=== PATIENT | female | born 1945 | race Caucasian/White ===

== ENCOUNTER 2017-12-10 15:59 | Inpatient (IN) ==
[2017-12-10 17:26] LABS: Basophils # 0.1 K/mcL (0.0-0.2); Basophils % 0.4 %; Eosinophils # 0.1 K/mcL (0.0-0.6); Hematocrit 42.5 % (35.3-44.9); Hemoglobin 13.9 g/dL (11.5-15.4); Immature Granulocytes % 0.4 % (0-4); Lymphocytes # 5.4 K/mcL (0.6-4.6); Lymphocytes % 39.8 %; Mean Corpuscular HGB Conc 32.7 g/dL (31.6-35.5); Mean Corpuscular Hemoglobin 31.4 pg (28.0-33.3); Mean Corpuscular Volume 96.2 fL (83.0-100.0); Mean Platelet Volume 11.3 fL (9.4-12.4); Monocytes # 1.4 K/mcL (0.0-1.3); Monocytes % 10.4 %; Neutrophils # 6.5 K/mcL (1.6-8.9); Nucleated Red Blood Cells 0.1 /100 WBC (0); Platelet Count 157 K/mcL (140-400); Red Blood Count 4.42 M/mcL (3.82-4.97); Red Cell Distribution Width 15.3 % (11.5-14.5)
[2017-12-10 18:11] LABS: Alanine Aminotransferase 218 Units/L (7-52); Albumin 2.9 g/dL (3.5-5.7); Albumin/Globulin Ratio 0.8 (1.1-2.2); Alkaline Phosphatase 826 Units/L (34-104); Amylase 43 Units/L (29-103); Aspartate Amino Transferase 358 Units/L (13-39); BUN/Creatinine Ratio 16 (6-26); Bilirubin,Direct 5.1 mg/dL (0.0-0.2); Bilirubin,Indirect 3.2 mg/dL (0.0-1.2); Bilirubin,Total 8.3 mg/dL (0.3-1.0); Blood Urea Nitrogen 17 mg/dL (8-23); Calcium 9.1 mg/dL (8.6-10.3); Carbon Dioxide 23 mEq/L (23-29); Chloride 101 mEq/L (98-107); Globulin 3.7 g/dL (2.4-3.5); Glucose 163 mg/dL (70-105); Lipase 24 Units/L (11-82); Osmolality,Calculated 279 (280-300); Potassium 4.1 mEq/L (3.5-5.1); Sodium 132 mEq/L (136-145); Total Protein 6.6 g/dL (6.4-8.9); eGFR For African Americans > 60 (> 60); eGFR For Non-African Americans 52 (> 60)
--- NOTE | 2017-12-10 20:22 | Emergency Department Note ---
Disposition Clinical Impression: Elevated LFTs, RUQ pain, Abnormal ultrasound, Cholecystitis Disposition: Admitted As Inpatient Condition: Good Time of Disposition: 23:07 Abdominal Pain HPI - General Chief Complaint: ED Abdominal Pain Stated Complaint: Gallbladder issues Time Seen by Provider: 12/10/17 20:03 Source: patient Mode of arrival: ambulatory Limitations: no limitations Nursing Notes Reviewed: Yes Vital Signs Reviewed: Yes - History of Present Illness HPI Narrative: Patient is a 72-year-old female with past medical history of hypertension, hyperlipidemia, diabetes. She presents today due to right upper quadrant and epigastric pain, jaundice, elevated LFTs and bilirubin levels. She also admits to white stools, dark urine. She states that around 2 years ago, she was diagnosed with gallstones. She says that she has had mildly elevated LFTs in the past but no real pain or issues pass that. Over the past week, she has been having right upper quadrant pain, mainly associated with eating, associated nausea. Denies any vomiting, fevers, chest pain, shortness of breath. She was seen by her primary care physician on 12/08/17 and had basic blood work drawn. She was called and told that she had elevated LFTs and bilirubin and come to the ER. She has also noticed that she has had jaundiced skin and scleral icterus. Pain Scale: 8 - Related Data Home Medications Medication Instructions Recorded Confirmed Aspirin Enteric Coated [Aspirin EC] 81 mg PO DAILY 12/10/17 12/10/17 Atorvastatin [Lipitor] 10 mg PO HS 12/10/17 12/10/17 Calcium Carbonate [Calcium] 600 mg PO DAILY 12/10/17 12/10/17 Insulin NPH Hum/Reg Insulin Hm 26 unit SQ QPM 12/10/17 12/10/17 [Novolin 70-30 100 Unit/ml Vial] Insulin NPH Hum/Reg Insulin Hm 46 unit SQ QAM 12/10/17 12/10/17 [Novolin 70-30 100 Unit/ml Vial] Lisinopril [Zestril] 10 mg PO DAILY 12/10/17 12/10/17 Vit A/C/E AC/Znox/Cupric Oxide 1 each PO DAILY 12/10/17 12/10/17 [Eye Vitamin-Minerals Tablet] glipiZIDE [Glucotrol] 5 mg PO BID 12/10/17 12/10/17 Allergies Allergy/AdvReac Type Severity Reaction Status Date / Time No Known Allergies Allergy Verified 12/10/17 16:30 All systems ED: reviewed and negative except as stated. Constitutional: Denies: fever Cardiovascular: Denies: chest pain, palpitations Respiratory: Denies: cough, dyspnea, wheezes Gastrointestinal: Reports: abdominal pain, nausea, other. Denies: vomiting, diarrhea, constipation, hematemesis, melena, hematochezia Genitourinary: Reports: other. Denies: urgency, dysuria, frequency, hematuria, discharge, abnormal menses Abdominal Pain PMH - Past Medical History Medical history: Reports: diabetes, hyperlipidemia, hypertension Female Surgical History: Reports: orthopedic, other Psychiatric history: Reports: no psych history - Social History Smoking status: Former smoker Alcohol use: Reports: none Drug use: Reports: none Physical Exam - General Limitations: no limitations General appearance: alert - Head Head exam: atraumatic, normocephalic, normal inspection - Eye Eye exam: Present: PERRL, EOMI, scleral icterus - ENT ENT exam: normal exam, normal oropharynx, mucous membranes moist - Neck Neck exam: Present: normal inspection, full ROM, trachea midline - Chest Chest inspection: Present: normal inspection, symmetric chest wall rise - Respiratory Respiratory exam: Present: normal lung sounds bilaterally - Cardiovascular Cardiovascular exam: Present: regular rate, normal rhythm, normal heart sounds - Abdominal Exam Abdominal exam: Present: soft, tenderness (RUQ tenderness - moderate). Absent: distention, guarding, rebound, rigidity - Extremities Exam Extremities exam: Present: normal inspection, full ROM. Absent: tenderness, pedal edema - Neurological Exam Neurological exam: Present: alert, oriented X3 - Psychiatric Psychiatric exam: Present: normal affect, normal mood - Skin Skin exam: Present: warm, dry, intact, other (jaundice) Course Course Narrative: Vitals within normal limits. Patient has refused any pain medication at this time. Refused any nausea medication. Physical exam shows scleral icterus, jaundice, right upper quadrant and epigastric tenderness. Basic labs were already drawn and showed elevated LFTs, elevated total, direct, and direct bilirubin. We will obtain ultrasound of right upper quadrant. Current concern for cholecystitis versus choledocolithiasis. 22:01 gallbladder ultrasound showed gallstones versus polyp and possible cholecystitis, recommended HIDA and/or MRCP. Patient requested Dr. nieto as surgeon. I spoke with him on the telephone, he recommended admission to medicine service, medical management and symptomatic control, possible MRCP in the morning. Consult has been placed. We will admit the patient to medicine for further care. Continues to decline pain or nausea medication at this time. 23:06 Dr. Blank accepts and asked for MRCP to be ordered for morning, this has been ordered and hospitalist service will follow up on results. Gallbladder Ultrasound 12/10/17 20:19 IMPRESSION: Gallstone versus gallbladder polyp. Possible cholecystitis. Follow-up HIDA scan and/or MRCP may be helpful for further characterization. D/ / Mike Peralta MD / Mike Peralta MD Interpreting Provider: Mike Peralta MD Vital Signs Temperature 98.1 F 12/10/17 16:30 Pulse Rate 99 12/10/17 16:30 Respiratory Rate 14 12/10/17 16:30 Blood Pressure 129/73 12/10/17 16:30 O2 Sat by Pulse Oximetry 99 12/10/17 16:30 Temperature 98.1 F 12/10/17 16:30 Pulse Rate 78 12/10/17 20:30 Respiratory Rate 16 12/10/17 23:27 Blood Pressure 132/73 12/10/17 23:27 O2 Sat by Pulse Oximetry 98 12/10/17 20:30 Oxygen Delivery Oxygen Delivery Room Air Abdominal Pain - MDM Narrative Medical decision making narrative: Vitals within normal limits. Patient has refused any pain medication at this time. Refused any nausea medication. Physical exam shows scleral icterus, jaundice, right upper quadrant and epigastric tenderness. Basic labs were already drawn and showed elevated LFTs, elevated total, direct, and direct bilirubin. We will obtain ultrasound of right upper quadrant. Current concern for cholecystitis versus choledocolithiasis. 22:01 gallbladder ultrasound showed gallstones versus polyp and possible cholecystitis, recommended HIDA and/or MRCP. Patient requested Dr. nieto as surgeon. I spoke with him on the telephone, he recommended admission to medicine service, medical management and symptomatic control, possible MRCP in the morning. Consult has been placed. We will admit the patient to medicine for further care. Continues to decline pain or nausea medication at this time. 22:01 gallbladder ultrasound showed gallstones versus polyp and possible cholecystitis, recommended HIDA and/or MRCP. Patient requested Dr. ineto as surgeon. I spoke with him on the telephone, he recommended admission to medicine service, medical management and symptomatic control, possible MRCP in the morning. Consult has been placed. We will admit the patient to medicine for further care. Continues to decline pain or nausea medication at this time. 23:06 Dr. Blank accepts and asked for MRCP to be ordered for morning, this has been ordered and hospitalist service will follow up on results. - Medical Records Medical records reviewed: Yes I reviewed the patient's medical records. - Lab Data Lab results reviewed: Yes I reviewed the patient's lab results. Result diagrams: 12/10/17 17:10 12/10/17 17:10 Lab Results 12/10/17 12/10/17 12/10/17 Range/Units 17:10 17:10 19:52 WBC 13.5 H (4.3-11.1) K/mcL RBC 4.42 (3.82-4.97) M/mcL Hgb 13.9 (11.5-15.4) g/dL Hct 42.5 (35.3-44.9) % MCV 96.2 (83.0-100.0) fL MCH 31.4 (28.0-33.3) pg MCHC 32.7 (31.6-35.5) g/dL RDW 15.3 H (11.5-14.5) % Plt Count 157 (140-400) K/mcL MPV 11.3 (9.4-12.4) fL Immature Gran % 0.4 (0-4) % Seg Neutrophils % 48.0 % Lymphocytes % 39.8 % Monocytes % 10.4 % Eosinophils % 1.0 % Basophils % 0.4 % Neutrophils # 6.5 (1.6-8.9) K/mcL Lymphocytes # 5.4 H (0.6-4.6) K/mcL Monocytes # 1.4 H (0.0-1.3) K/mcL Eosinophils # 0.1 (0.0-0.6) K/mcL Basophils # 0.1 (0.0-0.2) K/mcL Nucleated RBCs/100 WBC 0.1 H (0) /100 WBC PT (9.4-12.1) Seconds INR APTT (26.0-36.0) Seconds Sodium 132 L (136-145) mEq/L Potassium 4.1 (3.5-5.1) mEq/L Chloride 101 (98-107) mEq/L Carbon Dioxide 23 (23-29) mEq/L BUN 17 (8-23) mg/dL Creatinine 1.05 (0.60-1.20) mg/dL Est GFR ( Amer) > 60 (> 60) Est GFR (Non-Af Amer) 52 L (> 60) BUN/Creatinine Ratio 16 (6-26) Glucose 163 H (70-105) mg/dL Calculated Osmolality 279 L (280-300) Calcium 9.1 (8.6-10.3) mg/dL Total Bilirubin 8.3 H (0.3-1.0) mg/dL Direct Bilirubin 5.1 H (0.0-0.2) mg/dL Indirect Bilirubin 3.2 H (0.0-1.2) mg/dL AST 358 H (13-39) Units/L ALT 218 H (7-52) Units/L Alkaline Phosphatase 826 H (34-104) Units/L Serum Total Protein 6.6 (6.4-8.9) g/dL Albumin 2.9 L (3.5-5.7) g/dL Globulin 3.7 H (2.4-3.5) g/dL Albumin/Globulin Ratio 0.8 L (1.1-2.2) Amylase 43 (29-103) Units/L Lipase 24 (11-82) Units/L Ur Specimen Adequacy See below A Urine Color [place] A (Yellow) Urine Clarity Clear (Clear) Urine Microscopic RBC 5-15 H (0-3) per hpf Urine Microscopic WBC 15-30 H (0-3) per hpf Ur Squamous Epith Cells Many H (None-Few) per lpf Urine Bacteria Moderate H (None-Few) per hpf Hyaline Casts Moderate H (None-Few) per lpf Urine Yeast Moderate H (None Seen) per hpf Ur Culture Indicated? NO (NO) 12/10/17 Range/Units 22:17 WBC (4.3-11.1) K/mcL RBC (3.82-4.97) M/mcL Hgb (11.5-15.4) g/dL Hct (35.3-44.9) % MCV (83.0-100.0) fL MCH (28.0-33.3) pg MCHC (31.6-35.5) g/dL RDW (11.5-14.5) % Plt Count (140-400) K/mcL MPV (9.4-12.4) fL Immature Gran % (0-4) % Seg Neutrophils % % Lymphocytes % % Monocytes % % Eosinophils % % Basophils % % Neutrophils # (1.6-8.9) K/mcL Lymphocytes # (0.6-4.6) K/mcL Monocytes # (0.0-1.3) K/mcL Eosinophils # (0.0-0.6) K/mcL Basophils # (0.0-0.2) K/mcL Nucleated RBCs/100 WBC (0) /100 WBC PT 13.0 H (9.4-12.1) Seconds INR 1.2 APTT 33.9 (26.0-36.0) Seconds Sodium (136-145) mEq/L Potassium (3.5-5.1) mEq/L Chloride (98-107) mEq/L Carbon Dioxide (23-29) mEq/L BUN (8-23) mg/dL Creatinine (0.60-1.20) mg/dL Est GFR ( Amer) (> 60) Est GFR (Non-Af Amer) (> 60) BUN/Creatinine Ratio (6-26) Glucose (70-105) mg/dL Calculated Osmolality (280-300) Calcium (8.6-10.3) mg/dL Total Bilirubin (0.3-1.0) mg/dL Direct Bilirubin (0.0-0.2) mg/dL Indirect Bilirubin (0.0-1.2) mg/dL AST (13-39) Units/L ALT (7-52) Units/L Alkaline Phosphatase (34-104) Units/L Serum Total Protein (6.4-8.9) g/dL Albumin (3.5-5.7) g/dL Globulin (2.4-3.5) g/dL Albumin/Globulin Ratio (1.1-2.2) Amylase (29-103) Units/L Lipase (11-82) Units/L Ur Specimen Adequacy Urine Color (Yellow) Urine Clarity (Clear) Urine Microscopic RBC (0-3) per hpf Urine Microscopic WBC (0-3) per hpf Ur Squamous Epith Cells (None-Few) per lpf Urine Bacteria (None-Few) per hpf Hyaline Casts (None-Few) per lpf Urine Yeast (None Seen) per hpf Ur Culture Indicated? (NO) - Radiology Data Radiology results reviewed: Yes I reviewed the patient's radiology results. Gallbladder Ultrasound 12/10/17 20:19 IMPRESSION: Gallstone versus gallbladder polyp. Possible cholecystitis. Follow-up HIDA scan and/or MRCP may be helpful for further characterization. D/ / Mike Peralta MD / Mike Peralta MD Interpreting Provider: Mike Peralta MD S.B.Alfred - SRamon Situation: Demographics, MOA Background: Presenting Complaint, Relevant PMH, Meds, & Allergies Assessment: Vital Signs, Course and respsone to treatment, Exam Concerns, Patient/Family Expectation, Pertinant Lab Results, Outstanding Labs Recommendation: Barrier(s) to disposition, Recommendation based on pending studies, treatments, or consults S.B.ABeba Report Given to: Dr. Abhay Hall Repor Time: 23:07 Attestation Statement - Attestation Attestation: I, Geronimo Verduzco MD, personally evaluated this patient and discussed their management with the resident physician. I reviewed the resident's note and agree with the documented findings, medical decision making, and plan of care. 72-year-old female presents to the emergency department with a complaint of epigastric abdominal pain after eating for the past week. Also some mid lower abdominal pain. Some nausea but no vomiting. Patient states that she had an ultrasound of her liver a few years ago and has known gallstones but has never had any problem with the gallstones. Lab work drawn 2 days ago and saw her PCP today and was found to have markedly elevated hepatic enzymes and also noted to have scleral icterus and mild jaundice. She was referred to the emergency department. She denies any fever. On examination patient is a well-developed well-nourished well-appearing elderly female in no acute distress. She is alert and oriented 3. There is no cyanosis or diaphoresis. Patient does have mild jaundice with moderate scleral icterus. Mucous membranes are moist. Neck is supple. Breath sounds are clear and equal bilaterally. Heart regular rate and rhythm. Abdomen soft with normal bowel sounds. There is mild epigastric tenderness and mild suprapubic tenderness. No guarding or rebound tenderness. Labs reviewed. Gallbladder ultrasound obtained and shows: Gallstone versus gallbladder polyp. Possible cholecystitis. Follow-up HIDA scan and/or MRCP may be helpful for further characterization. Dr. Ornelas discussed the case with the surgeon plant technician/control room operator, Dr. Nieto. He recommended admission by the hospitalist. The hospitalist, Dr. Blank, was consulted and accepted admission of the patient.
[2017-12-10 20:30] LABS: Clarity,Urine Clear (Clear); Color,Urine Orange (Yellow)
[2017-12-10 20:37] LABS: Bacteria,Urine Moderate per hpf (None-Few); Hyaline Casts,Urine Moderate per lpf (None-Few); Squamous Epithelial Cell,Urine Many per lpf (None-Few); WBC,Urine 15-30 per hpf (0-3); Yeast,Urine Moderate per hpf (None Seen)
[2017-12-10 22:35] LABS: INR 1.2
[2017-12-10 22:37] LABS: Activated Partial Thrombo Time 33.9 Seconds (26.0-36.0)
[2017-12-11] MEDS ORDERED: Dextrose Gel 15 GM/37.5 ML TUBE PO PRN ×2 (00:37)
[2017-12-11] MEDS ORDERED: *HR* Dextrose 50 % in Water (Syg) 50 ML SYRINGE IVP PRN (00:37)
[2017-12-11] MEDS ORDERED: D5% in Water 1,000 ML IVC PRN (00:37)
[2017-12-11] MEDS ORDERED: *HR* Dextrose 50 % in Water (Syg) 50 ML SYRINGE ONE (00:43)
[2017-12-11] MEDS ORDERED: *HR* Dextrose 50 % in Water (Syg) 50 ML SYRINGE IVP ONE (00:48)
[2017-12-11] MEDS ORDERED: Acetaminophen 325 MG TABLET PO PRN (03:17)
[2017-12-11] MEDS ORDERED: Naloxone 0.4 MG/ML INJ IVP PRN (03:17)
[2017-12-11] MEDS ORDERED: traMADol 50 MG TABLET PO PRN (03:17)
[2017-12-11] MEDS: D5% in 0.45% NACL 1,000 ML IVC SCH (05:43)
[2017-12-11] MEDS: *HR* Enoxaparin 40 MG/0.4 ML SYRINGE SQ SCH (05:44)
[2017-12-11 07:03] LABS: Basophils # 0.1 K/mcL (0.0-0.2); Basophils % 0.4 %; Eosinophils # 0.1 K/mcL (0.0-0.6); Hematocrit 38.4 % (35.3-44.9); Hemoglobin 12.5 g/dL (11.5-15.4); Immature Granulocytes % 0.6 % (0-4); Lymphocytes # 6.1 K/mcL (0.6-4.6); Mean Corpuscular HGB Conc 32.6 g/dL (31.6-35.5); Mean Corpuscular Hemoglobin 30.9 pg (28.0-33.3); Mean Platelet Volume 11.2 fL (9.4-12.4); Monocytes # 1.4 K/mcL (0.0-1.3); Monocytes % 9.6 %; Neutrophils # 6.5 K/mcL (1.6-8.9); Nucleated Red Blood Cells 0.1 /100 WBC (0); Platelet Count 154 K/mcL (140-400); Red Blood Count 4.04 M/mcL (3.82-4.97); Red Cell Distribution Width 15.4 % (11.5-14.5); Segmented Neutrophils % 45.4 %
[2017-12-11 08:28] LABS: Alanine Aminotransferase 194 Units/L (7-52); Albumin 2.6 g/dL (3.5-5.7); Albumin/Globulin Ratio 0.8 (1.1-2.2); Alkaline Phosphatase 741 Units/L (34-104); Aspartate Amino Transferase 316 Units/L (13-39); BUN/Creatinine Ratio 19 (6-26); Bilirubin,Total 8.1 mg/dL (0.3-1.0); Blood Urea Nitrogen 17 mg/dL (8-23); Calcium 8.5 mg/dL (8.6-10.3); Carbon Dioxide 22 mEq/L (23-29); Chloride 103 mEq/L (98-107); Chol/HDL Ratio 68.5 (0-4.9); Cholesterol 274 mg/dL (< 200); Globulin 3.3 g/dL (2.4-3.5); Glucose 80 mg/dL (70-105); HDL Cholesterol 4 mg/dL (40-59); LDL Cholesterol,Calculated 250 mg/dL (0-99); Magnesium 2.1 mg/dL (1.6-2.6); Osmolality,Calculated 277 (280-300); Potassium 3.8 mEq/L (3.5-5.1); Sodium 133 mEq/L (136-145); Total Protein 5.9 g/dL (6.4-8.9); Triglycerides 99 mg/dL (< 150); eGFR For African Americans > 60 (> 60); eGFR For Non-African Americans > 60 (> 60)
--- NOTE | 2017-12-11 11:12 | Internal Med History&Physical ---
<Hailey Epstein - Last Filed: 12/11/17 12:51> Date of Encounter: 12/11/17 Time of Encounter: 10:00 Assessment and Plan (1) Cholecystitis Current visit: Yes Status: Acute Patient has a history of gallstones, she had been experiencing right upper quadrant pain as well as epigastric pain occurring after eating with nausea. She has elevated LFTs as well as bilirubin she is jaundiced ultrasound shows gallstones versus gallbladder polyp recommending HIDA scan and/or MRCP. MRCP has been ordered. Did consult GI-spoke with Dr. Rosario who will see patient. Surgery has also been consulted Dr. Junior and will see patient if surgery is required Nothing by mouth for now IV fluids (2) Diabetes mellitus Current visit: No Status: Chronic Patient is nothing by mouth Accu-Cheks every 6 hours with signs scale insulin Qualifiers: Diabetes mellitus type: type 2 Diabetes mellitus termite control representative insulin use: with termite control representative use Diabetes mellitus complication status: without complication Qualified Code(s): E11.9 - Type 2 diabetes mellitus without complications; Z79.4 - manager long term care (current) use of insulin; Z79.4 - manager long term care ( current) use of insulin; Z79.4 - manager long term care (current) use of insulin; Z79.4 - manager long term care (current) use of insulin (3) HTN (hypertension) Current visit: Yes Status: Acute cont with lisinopril Qualifiers: Hypertension type: essential hypertension Qualified Code(s): I10 - Essential (primary) hypertension (4) DVT prophylaxis Current visit: Yes Status: Acute lovenox (5) Elevated LFTs Current visit: Yes Status: Acute Internal Medicine - H&P: HPI Chief complaint: Abd pain Admitted From: Emergency Dept Plans for Post Hospital Care: Home History of present illness: Ms. Schrader is a 72 year old female past medical history of hypertension hyperlipidemia diabetes. Patient had been experiencing right upper quadrant pain and epigastric pain jaundice elevated LFTs and bilirubin levels. She also admits to the past 4 days of experiencing white stools and dark urine. Naproxen 2 years ago she was diagnosed with gallstones and she has had mildly elevated LFTs in the past but no real pain. Over the past week whenever she would eat she would experience right upper quadrant pain as well as nausea. She denies any vomiting fevers chest pain or diarrhea. She did see her primary care physician on 12/08/17 she had some basic blood work drawn she was notified by her PCP that her LFTs were elevated and to come to the ER. She also noticed that her skin was slightly yellow as well as her eyes. In the ER lab work did reveal elevated LFTs total bili 8.3 and direct 3.2 direct 5.1 coags within normal limits. Gallbladder ultrasound-gallstone versus gallbladder polyps. Surgery was consulted patient was admitted for further evaluation. Dr. Nieto did see the patient on the floor-recommends GI consult first an MRCP if surgery indicated he will follow. I spoke with Dr. Garza who will see patient. MRCP ordered. Presently patient denies any pain or discomfort she is hemodynamically stable at this time. I did review his case with Dr. Phillips who agrees with plan. Past Med Surg Social Fam HX - Past Medical History Medical history: diabetes, hyperlipidemia, hypertension Psychiatric history: no psych history - Social History Smoking Status: Former smoker Smokeless Tobacco Status: No Alcohol use: none Drug use: none - Family History Mother Name: charlie Graff Living Status: Age at : 96 Cause of : CO Hx Family Cardiac Disorders: Yes Hx Family GI Disorders: Yes Father Name: Karthik Graff Living Status: Age at : 80 Cause of : colon cancer Hx Family Cancer: Yes Internal Medicine - H&P: Meds Aspirin Enteric Coated [Aspirin EC] 81 mg PO DAILY 12/10/17 [History] Atorvastatin [Lipitor] 10 mg PO HS 12/10/17 [History] Calcium Carbonate [Calcium] 600 mg PO DAILY 12/10/17 [History] Insulin NPH Hum/Reg Insulin Hm [Novolin 70-30 100 Unit/ml Vial] 26 unit SQ QPM 12/10/17 [History] Insulin NPH Hum/Reg Insulin Hm [Novolin 70-30 100 Unit/ml Vial] 46 unit SQ QAM 12/10/17 [History] Lisinopril [Zestril] 10 mg PO DAILY 12/10/17 [History] Vit A/C/E AC/Znox/Cupric Oxide [Eye Vitamin-Minerals Tablet] 1 each PO DAILY [History] glipiZIDE [Glucotrol] 5 mg PO BID 12/10/17 [History] 3 Allergy/AdvReac Type Severity Reaction Status Date / Time No Known Allergies Allergy Verified 12/10/17 16:30 All Systems PM: A 10-system review of systems was performed and is negative for pertinent findings except as documented above in the HPI. - Constitutional Constitutional: no chills, no fever(s), no night sweats - EENT Eyes: no change in vision, no discharge, no pain, no photophobia - Cardiovascular Cardiovascular ROS IM: no chest pain, no diaphoresis, no dyspnea, no lightheadedness, no palpitations, no syncope - Respiratory Respiratory: no cough, no dyspnea, no wheezing, no excessive phlegm production - Gastrointestinal Gastrointestinal: abdominal pain, other, no diarrhea, no hematemesis, no hematochezia, no melena, no nausea, no vomiting Additional comments: white stool - Genitourinary Genitourinary: no change in urinary stream, no dysuria, no flank pain, no hematuria - Musculoskeletal Musculoskeletal ROS IM: as per HPI - Integumentary Integumentary IM: no rash, no unusual bruising - Neurological Neurological ROS: no confusion, no convulsions, no focal weakness, no numbness, no tingling, no tremor(s) - Hematologic/Lymphatic Hematologic/Lymphatic: no easy bruising - Constitutional Vitals: Temp Pulse Resp BP Pulse Ox 98.1 F 79 15 126/70 95 12/11/17 07:15 12/11/17 07:15 12/11/17 07:15 12/11/17 07:15 12/11/17 07:15 General appearance: Present: A&O X 3 - Head Head exam: Present: atraumatic, normocephalic - Eye Eye exam: Present: PERRL, scleral icterus, conjuntiva pink, sclera anicteric Pupils: Present: PERRL - Neck Neck exam general surgery: Present: supple, trachea midline. Absent: lymphadenopathy - Respiratory Respiratory exam: Present: CTAB. Absent: accessory muscle use, rales, rhonchi, wheezes - Cardiovascular Cardiovascular exam: Present: RRR, +S1, +S2. Absent: diastolic murmur, gallop, rubs, systolic murmur - GI/Abdominal GI/Abdominal exam: Present: normal bowel sounds, soft, tenderness, no peritoneal signs. Absent: distended - Extremities Exam Extremities exam: Present: warm, radial pulses palpable and symmetrical. Absent : calf tenderness, cyanotic, pedal edema - Neurological Exam Neurological exam: Present: CN II-XII intact, oriented X3, no focal deficits. Absent: pronater drift, facial droop, speech deficit - Skin Skin exam: Present: dry, intact Additional comments: Jaundiced Internal Med - H&P Results - Labs CBC & Chem 7: 12/11/17 06:12 12/11/17 06:12 Labs: Short CBC 12/11/17 Range/Units 06:12 WBC 14.2 H (4.3-11.1) K/mcL Hgb 12.5 (11.5-15.4) g/dL Hct 38.4 (35.3-44.9) % Plt Count 154 (140-400) K/mcL Neutrophils # 6.5 (1.6-8.9) K/mcL BMP 12/11/17 06:12 Sodium 133 L Potassium 3.8 Chloride 103 Carbon Dioxide 22 L BUN 17 Creatinine 0.88 Glucose 80 Calcium 8.5 L Liver Function 12/11/17 Range/Units 06:12 Total Bilirubin 8.1 H (0.3-1.0) mg/dL AST 316 H (13-39) Units/L ALT 194 H (7-52) Units/L Alkaline Phosphatase 741 H (34-104) Units/L Albumin 2.6 L (3.5-5.7) g/dL - Diagnostic Studies Other Images Additional comments: Gallbladder Ultrasound 12/10/17 20:19 IMPRESSION: Gallstone versus gallbladder polyp. Possible cholecystitis. Follow-up HIDA scan and/or MRCP may be helpful for further characterization. D/ / Mike Peralta MD / Mike Peralta MD Interpreting Provider: Mike Peralta MD <William Phillips - Last Filed: 12/11/17 15:14> Date of Encounter: 12/11/17 Internal Medicine - H&P: HPI History of present illness: Ms. Schrader is a 72 year old female All Systems PM: A 10-system review of systems was performed and is negative for pertinent findings except as documented above in the HPI. - Constitutional Vitals: Temp Pulse Resp BP Pulse Ox 97.5 F L 74 16 121/72 98 12/11/17 11:26 12/11/17 11:26 12/11/17 11:26 12/11/17 11:26 12/11/17 11:26 Internal Med - H&P Results - Labs CBC & Chem 7: 12/11/17 06:12 12/11/17 06:12 Labs: Short CBC 12/11/17 Range/Units 06:12 WBC 14.2 H (4.3-11.1) K/mcL Hgb 12.5 (11.5-15.4) g/dL Hct 38.4 (35.3-44.9) % Plt Count 154 (140-400) K/mcL Neutrophils # 6.5 (1.6-8.9) K/mcL BMP 12/11/17 06:12 Sodium 133 L Potassium 3.8 Chloride 103 Carbon Dioxide 22 L BUN 17 Creatinine 0.88 Glucose 80 Calcium 8.5 L Liver Function 12/11/17 Range/Units 06:12 Total Bilirubin 8.1 H (0.3-1.0) mg/dL AST 316 H (13-39) Units/L ALT 194 H (7-52) Units/L Alkaline Phosphatase 741 H (34-104) Units/L Albumin 2.6 L (3.5-5.7) g/dL - Attending Attestation Patients seen and examined. Discussed mcelroy findings and A/P w SENIOR QC TECHNICIAN on case 72 yo f w gradual dyspeptic symptoms over 3 weeks and subsequently developed jaundice and started noticing pasty stools over this past saturday. Had pain that was all over the abdomen , described as burning pain on a scale of 7/10 at max.intermiittent. associated w nausea but no vomiting. No weight loss. infact she gained a pound Mother had gall bladder stones and had it removed. MRCP was done which shows possible cholecystitis plus duodenitis w gall stones. Interestingly, she had elevated LFTs 2 yrs ago which led her PCP to image her liver w an US but it only showed gallstones that " did not trouble her". Now she has significant LFT derangement and a cholestatic picture Agree w Gen surgery and GI consultation . would be okay w some clear liquids tonight unless Gen Surgery wants to do some procedure. She may benefit from HIDA scan and or ERCP - would leave to consultants discretion May need workup for autoimmune hepatitis. Would also initiate IV zosyn for empiric coverage Keep on IVF follow closely w recs
--- NOTE | 2017-12-11 11:34 | Gastroenterology Consult Note ---
<Austin Brooke - Last Filed: 12/11/17 17:48> Date of Encounter: 12/11/17 Time of Encounter: 11:32 - Assessment and plan (1) Conjugated hyperbilirubinemia Current Visit: Yes Status: Acute Assessment and plan: Patient with 8.3 total bilirubin level (direct bilirubin 5.1, indirect bilirubin 3.2) Gallbladder ultrasound revealed a 1.2 cm gallstone or polyp with possible cholecystitis and mild gallbladder wall thickening measuring 3.8 mm. The common bile duct is within normal limits measuring 4.5 mm. MRCP revealed findings suggestive of acute cholecystitis, inflammatory stranding and dilation of the 2nd and 3rd segments of duodenum, mild to moderate hepatic steatosis, and no findings choledocholithiasis or biliary obstruction Case discussed at length with Interventional radiologist Dr. Saundra Farris. Her LFTs are elevated out of proportion to cholecystitis findings on imaging and are more consistent with intra-hepatic etiology, anticipate liver biopsy tomorrow if LFTs remain elevated. Patient is NPO after midnight. Obtain an anti-mitochondrial antibody to evaluate for primary biliary cholangitis Obtain JEFFERY to evaluate for auto-immune hepatitis. Differential includes hepatocellular dysfunction vs viral hepatitis, or metabolic liver disease - Time Spent With Patient Total time spent is greater than 50% in coordination of care (as documented) at patient's floor/unit and/or counseling patient: GI History of Present Illness - Data of Consult Patient: new to practice Consult date: 12/11/17 Requesting Physician: Nicole Christianson CNP - Consult Narrative Reason for consult: Elevated LFTs History of present illness: Ms. Schrader is a 72 year old female with a past medical history of hypertension, hyperlipidemia, and diabetes who presented to the ED due to abnormal outpatient labs performed by her PCP on 12/08/17. She reports right upper quadrant and epigastric pain associated with eating, nausea, anorexia, pale stools, dark urine, and jaundice for the past 4 days and her labs revealed elevated LFTs and 8.3 total bilirubin level (direct bilirubin 5.1, indirect bilirubin 3.2). Patient denies any fevers, chills, vomiting, chest pain, shortness of breath, or weight loss. Patient reports history of elevated LFTs in the past and states that in 2016 she was diagnosed with gallstones by ultrasound. Gallbladder ultrasound revealed a 1.2 cm gallstone or polyp with possible cholecystitis and mild gallbladder wall thickening measuring 3.8 mm. The common bile duct is within normal limits measuring 4.5 mm. MRCP revealed findings suggestive of acute cholecystitis, inflammatory stranding and dilation of the 2nd and 3rd segments of duodenum, mild to moderate hepatic steatosis, and no findings choledocholithiasis or biliary obstruction Colonoscopy: Normal Colonoscopy in 2007 EGD: Denies Past Med Surg Social Fam HX - Past Medical History Medical history: diabetes, hyperlipidemia, hypertension Psychiatric history: no psych history - Past Surgical History Surgical History: hysterectomy, orthopedic, other - Social History Smoking Status: Former smoker Smokeless Tobacco Status: No Alcohol use: none Drug use: none Occupational status: other Current living situation: Home, With Family Activity Level: Independent ambulation Recent Out of Country Travel Within the Last 8 Weeks: No Exposure or Possible Exposure to Illness During Travel: No - Family History Mother Name: charlie [employer] Living Status: Age at : 96 Cause of : MD Hx Family Cardiac Disorders: Yes Hx Family GI Disorders: Yes Father Name: Karthik [employer] Living Status: Age at : 80 Cause of : colon cancer Hx Family Cancer: Yes - Gastrointestinal Gastrointestinal: Present: abdominal pain, change in bowel habits, nausea. Absent: constipation, diarrhea, hematemesis, hematochezia, melena, vomiting - Constitutional Constitutional: no anorexia, no fatigue, no fever(s), no weight gain, no weight loss - EENT Nose, mouth and throat: Absent: dysphagia, sore throat - Cardiovascular Cardiovascular ROS: Absent: chest pain, palpitations - Respiratory Respiratory IM: Absent: cough, dyspnea, wheezing - Genitourinary Genitourinary: Present: change in color. Absent: Urinary frequency - Neurological ROS Neurological GI: Absent: confusion, dizziness, headache(s), weakness - Hematologic/Lymphatic Hematologic/Lymphatic pediatric: Absent: easy bleeding - Musculoskeletal Musculoskeletal ROS GI: Absent: back pain - Integumentary Integumentary GI: Present: jaundice. Absent: pruritis, rash - Psychiatric ROS Psychiatric GI: Absent: anxiety, depression - Endocrine Endocrine IM: Absent: cold intolerance, fatigue, heat intolerance - Constitutional Vitals: Temp Pulse Resp BP Pulse Ox 97.5 F L 74 16 121/72 98 12/11/17 11:26 12/11/17 11:26 12/11/17 11:26 12/11/17 11:26 12/11/17 11:26 General appearance: Present: cooperative, A&O X 3, no acute distress, answers questions appropriately - Head Head exam: Present: atraumatic, normocephalic - Eye Eye exam: Present: normal appearance, scleral icterus - Neck Neck exam general surgery: Present: normal inspection, trachea midline - Respiratory Respiratory exam: Present: CTAB - Cardiovascular Cardiovascular exam: Present: RRR, +S1, +S2 - GI/Abdominal GI/Abdominal exam: Present: normal bowel sounds, soft, tenderness (RUQ), no peritoneal signs. Absent: distended, guarding, hepatomegaly - Rectal Rectal exam: Present: deferred - Extremities Exam Extremities exam: Present: warm. Absent: pedal edema - Neurological Exam Neurological exam: Present: no focal deficits - Psychiatric Psychiatric exam: Present: normal affect, normal mood - Skin Skin exam: Present: dry, intact, warm. Absent: normal color (jaundice) Results - Labs CBC & Chem 7: 12/11/17 06:12 12/11/17 06:12 Labs: Last Result Calcium 8.5 mg/dL (8.6-10.3) L 12/11/17 06:12 Triglycerides 99 mg/dL (< 150) 12/11/17 06:12 Entire Visit Hgb 12.5 g/dL (11.5-15.4) 12/11/17 06:12 Hct 38.4 % (35.3-44.9) 12/11/17 06:12 PT 13.0 Seconds (9.4-12.1) H 12/10/17 22:17 Total Bilirubin 8.1 mg/dL (0.3-1.0) H 12/11/17 06:12 AST 316 Units/L (13-39) H 12/11/17 06:12 ALT 194 Units/L (7-52) H 12/11/17 06:12 Amylase 43 Units/L (29-103) 12/10/17 17:10 Lipase 24 Units/L (11-82) 12/10/17 17:10 - ABG ABG results: PT/INR, D-dimer PT 13.0 Seconds (9.4-12.1) H 12/10/17 22:17 - Impressions ITS Impressions Gallbladder Ultrasound 12/10/17 20:19 IMPRESSION: Gallstone versus gallbladder polyp. Possible cholecystitis. Follow-up HIDA scan and/or MRCP may be helpful for further characterization. D/ / Mike Peralta MD / Mike Peralta MD Interpreting Provider: Mike Peralta MD Abdomen MRI 12/10/17 23:03 IMPRESSION: 1. Cholelithiasis and findings suggestive of acute cholecystitis. Consider confirmation with a nuclear medicine hepatobiliary scan. 2. Mild dilation of the 2nd and 3rd segments of duodenum with adjacent inflammatory stranding, likely related to the above process. Duodenitis could appear similar, but edematous duodenal wall thickening would be expected. 3. No findings choledocholithiasis or biliary obstruction. 4. Mild to moderate hepatic steatosis. D/ / Hira Martinez MD / Hira Martinez MD Interpreting Provider: Hira Martinez MD Consult Discharge Plan - Plan Referrals: Tiago Scott MD [Primary Care Provider] - <Josephine Garza - Last Filed: 12/11/17 17:55> Date of Encounter: 12/11/17 Time of Encounter: 17:35 - Time Spent With Patient Total time spent is greater than 50% in coordination of care (as documented) at patient's floor/unit and/or counseling patient: GI History of Present Illness - Data of Consult Requesting Physician: Nicole Christianson CNP - Consult Narrative History of present illness: Ms. Schrader is a 72 year old female - Constitutional Vitals: Temp Pulse Resp BP Pulse Ox 98.1 F 75 16 102/62 98 12/11/17 15:40 12/11/17 15:40 12/11/17 15:40 12/11/17 15:40 12/11/17 15:40 Results - Labs CBC & Chem 7: 12/11/17 06:12 12/11/17 06:12 Labs: Last Result Calcium 8.5 mg/dL (8.6-10.3) L 12/11/17 06:12 Triglycerides 99 mg/dL (< 150) 12/11/17 06:12 Entire Visit Hgb 12.5 g/dL (11.5-15.4) 12/11/17 06:12 Hct 38.4 % (35.3-44.9) 12/11/17 06:12 PT 13.0 Seconds (9.4-12.1) H 12/10/17 22:17 Total Bilirubin 8.1 mg/dL (0.3-1.0) H 12/11/17 06:12 AST 316 Units/L (13-39) H 12/11/17 06:12 ALT 194 Units/L (7-52) H 12/11/17 06:12 Amylase 43 Units/L (29-103) 12/10/17 17:10 Lipase 24 Units/L (11-82) 12/10/17 17:10 - ABG ABG results: PT/INR, D-dimer PT 13.0 Seconds (9.4-12.1) H 12/10/17 22:17 - Attending Attestation I examined this patient and my medical decision-making was reviewed with the Resident Physician. I agree with the documented findings, disposition and treatment plan as described except to the extent set forth below. Patient with the elevated LFTs. Ultrasound and MRI with no CBD obstruction do not have acute cholecystitis. Liver numbers are consistent with cholestasis patient did took some Cipro a few weeks ago for her UTI. Does has symptom starting from from October. Rule out primary biliary cirrhosis. Possible liver biopsy in the morning
[2017-12-11] MEDS: Piperacillin/Tazobactam 3.375 GM in 0.9 % Sodium Chloride Mini Bag 100 ML IVPB SCH (15:25)
[2017-12-11 15:51] LABS: Hepatitis A Antibody IgM Nonreactive (Nonreactive); Hepatitis B Core IgM Nonreactive (Nonreactive); Hepatitis B Surface Antigen Nonreactive (Nonreactive); Hepatitis C Virus Antibody Nonreactive (Nonreactive)
--- NOTE | 2017-12-11 16:43 | Electrocardiograph Report ---
[place] [id number] Test Date: 2017-12-11 Pat Name: Leah Schrader Department: 113 Room: 3B Gender: F Pre K Lead Teacher: STEFANY : 1945 Requested By: Payton Ayala Order Number: [id number] Reading MD: Ari Leblanc DO Measurements Intervals [place] Rate: 76 P: 56 CO: 171 QRS: 38 QRSD: 98 T: 44 QT: 395 QTc: 426 Interpretive Statements SINUS RHYTHM WITH OCCASIONAL VENTRICULAR PREMATURE COMPLEXES Electronically Signed On 12-11-2017 16:41:07 EDT by Ari Leblanc DO
--- NOTE | 2017-12-11 19:11 | General Surgery Consult Note ---
Date of Encounter: 12/11/17 Time of Encounter: 18:58 History of Present Illness Consult date: 12/11/17 Reason for consult: gallstones (jaundice) Requesting physician: Stephane Ornelas History of present illness: General Surgery - Patient seen and examined this AM and again this evening. This is a delayed dictation 72-year-old female referred for further evaluation and treatment after presenting to [facility] ED with a several week history of right upper quadrant and epigastric abdominal pain with nausea. The patient indicates that she "felt like vomiting" but did not. In the past week symptoms became much more severe, the patient admits that her urine became extremely dark and her stool maria dolores colored. Laboratories are markedly abnormal: White count 13.5, hemoglobin 13.9, hematocrit 42.5. Daily Sarbjit 8.3 with a direct component 5.1; AST 358, ALT 218 , alkaline phosphatase 256. Amylase and lipase were unremarkable. USGB was reviewed with [facility] this AM -this is notable for normal hepatic echogenicity without intrahepatic biliary duct dilatation. A 1.2 cm gallstone or polyp is evident within the gallbladder gallbladder wall thickening is described at 3.8 mm but there was no pericholecystic fluid. An ultrasound of the gallbladder completed in 2015 demonstrated gallstones. The patient admits that she was minimally symptomatic and "put off surgery" On examination this morning the patient was in no acute distress; she was jaundiced, but afebrile, pulse 74-79, respirations 15-16, blood pressure 126/70. SPO2 on room air was 98% Skin was warm, mildly jaundiced. The sclera were more obviously jaundiced Lungs were clear bilaterally, there was no abdominal pain and deep inspiration Cardiac: Regular rate with no appreciable murmurs Abdomen: Tender in the right upper quadrant but no discernible intra- abdominal masses, hepatosplenomegaly, or rebound. Bowel sounds were active. Extremities: No obvious clubbing, cyanosis, or edema. Past medical history: Diabetes, hypertension, hyperlipidemia Surgical history: Hysterectomy in the remote past Social history: Patient is , lives with her spouse; she has never smoked ; she denies any alcohol or illicit drug use. Per my discussion with the patient following my examination this morning. I recommended a consultation with gastroenterology along with either an MRCP/ERCP. This evening, the MRCP that was completed earlier today was reviewed. This demonstrated no ductal dilatation or evidence of choledocholithiasis. There are findings suggestive of acute cholecystitis with inflammatory stranding as well as dilatation of the second and third portions of the duodenum. Mild hepatic steatosis is described that was not evident on the ultrasound. Dr Garza has seen the patient and reviewed the available imaging and labs. A liver biopsy is planned in the AM. I have discussed those recommendations with the patient and her . I have recommended proceeding with the hepatic biopsies. Cholecystectomy is still recommended but it will be deferred pending the hepatic biopsy results. I will continue to follow along with you. Thank you for the consultation. Past Med Surg Social Fam HX - Past Medical History Medical history: diabetes, hyperlipidemia, hypertension Psychiatric history: no psych history - Past Surgical History Surgical History: hysterectomy, orthopedic, other - Social History Smoking Status: Former smoker Smokeless Tobacco Status: No Alcohol use: none Drug use: none - Family History Mother Name: [facility]lie [facility] Living Status: Age at : 96 Cause of : [place] Hx Family Cardiac Disorders: Yes Hx Family GI Disorders: Yes Father Name: Karthik [facility] Living Status: Age at : 80 Cause of : colon cancer Hx Family Cancer: Yes Medications and Allergies Aspirin Enteric Coated [Aspirin EC] 81 mg PO DAILY 12/10/17 [History] Atorvastatin [Lipitor] 10 mg PO HS 12/10/17 [History] Calcium Carbonate [Calcium] 600 mg PO DAILY 12/10/17 [History] Insulin NPH Hum/Reg Insulin Hm [Novolin 70-30 100 Unit/ml Vial] 26 unit SQ QPM 12/10/17 [History] Insulin NPH Hum/Reg Insulin Hm [Novolin 70-30 100 Unit/ml Vial] 46 unit SQ QAM 12/10/17 [History] Lisinopril [Zestril] 10 mg PO DAILY 12/10/17 [History] Vit A/C/E AC/Znox/Cupric Oxide [Eye Vitamin-Minerals Tablet] 1 each PO DAILY [History] glipiZIDE [Glucotrol] 5 mg PO BID 12/10/17 [History] 3 Allergy/AdvReac Type Severity Reaction Status Date / Time No Known Allergies Allergy Verified 12/10/17 16:30 Review of Systems All systems PM: The remainder of the systems were reviewed and are negative General Surgery Exam Initial Vital Signs Temp Pulse Resp BP Pulse Ox 98.1 F 99 14 129/73 99 12/10/17 16:30 12/10/17 16:30 12/10/17 16:30 12/10/17 16:30 12/10/17 16:30 Exam Initial Vital Signs Temp Pulse Resp BP Pulse Ox 98.1 F 99 14 129/73 99 12/10/17 16:30 12/10/17 16:30 12/10/17 16:30 12/10/17 16:30 12/10/17 16:30 Results - Labs 12/11/17 06:12 12/11/17 06:12 Abnormal lab results WBC 14.2 K/mcL (4.3-11.1) H 12/11/17 06:12 RDW 15.4 % (11.5-14.5) H 12/11/17 06:12 Lymphocytes # 6.1 K/mcL (0.6-4.6) H 12/11/17 06:12 Monocytes # 1.4 K/mcL (0.0-1.3) H 12/11/17 06:12 Nucleated RBCs/100 WBC 0.1 /100 WBC (0) H 12/11/17 06:12 PT 13.0 Seconds (9.4-12.1) H 12/10/17 22:17 Sodium 133 mEq/L (136-145) L 12/11/17 06:12 Carbon Dioxide 22 mEq/L (23-29) L 12/11/17 06:12 Calculated Osmolality 277 (280-300) L 12/11/17 06:12 Calcium 8.5 mg/dL (8.6-10.3) L 12/11/17 06:12 Total Bilirubin 8.1 mg/dL (0.3-1.0) H 12/11/17 06:12 Direct Bilirubin 5.1 mg/dL (0.0-0.2) H 12/10/17 17:10 Indirect Bilirubin 3.2 mg/dL (0.0-1.2) H 12/10/17 17:10 AST 316 Units/L (13-39) H 12/11/17 06:12 ALT 194 Units/L (7-52) H 12/11/17 06:12 Alkaline Phosphatase 741 Units/L (34-104) H 12/11/17 06:12 Serum Total Protein 5.9 g/dL (6.4-8.9) L 12/11/17 06:12 Albumin 2.6 g/dL (3.5-5.7) L 12/11/17 06:12 Albumin/Globulin Ratio 0.8 (1.1-2.2) L 12/11/17 06:12 Cholesterol 274 mg/dL (< 200) H 12/11/17 06:12 LDL Cholesterol, Calc 250 mg/dL (0-99) H 12/11/17 06:12 HDL Cholesterol 4 mg/dL (40-59) L 12/11/17 06:12 Cholesterol/HDL Ratio 68.5 (0-4.9) H 12/11/17 06:12 Ur Specimen Adequacy See below A 12/10/17 19:52 Urine Color [place] (Yellow) A 12/10/17 19:52 Urine Microscopic RBC 5-15 per hpf (0-3) H 12/10/17 19:52 Urine Microscopic WBC 15-30 per hpf (0-3) H 12/10/17 19:52 Ur Squamous Epith Cells Many per lpf (None-Few) H 12/10/17 19:52 Urine Bacteria Moderate per hpf (None-Few) H 12/10/17 19:52 Hyaline Casts Moderate per lpf (None-Few) H 12/10/17 19:52 Urine Yeast Moderate per hpf (None Seen) H 12/10/17 19:52 Diabetes panel 12/11/17 Range/Units 06:12 Sodium 133 L (136-145) mEq/L Potassium 3.8 (3.5-5.1) mEq/L Chloride 103 (98-107) mEq/L Carbon Dioxide 22 L (23-29) mEq/L BUN 17 (8-23) mg/dL Creatinine 0.88 (0.60-1.20) mg/dL Glucose 80 (70-105) mg/dL Calcium 8.5 L (8.6-10.3) mg/dL AST 316 H (13-39) Units/L ALT 194 H (7-52) Units/L Alkaline Phosphatase 741 H (34-104) Units/L Albumin 2.6 L (3.5-5.7) g/dL Triglycerides 99 (< 150) mg/dL HDL Cholesterol 4 L (40-59) mg/dL Calcium panel 12/11/17 Range/Units 06:12 Calcium 8.5 L (8.6-10.3) mg/dL Albumin 2.6 L (3.5-5.7) g/dL Pituitary panel 12/11/17 Range/Units 06:12 Sodium 133 L (136-145) mEq/L Potassium 3.8 (3.5-5.1) mEq/L Chloride 103 (98-107) mEq/L Carbon Dioxide 22 L (23-29) mEq/L BUN 17 (8-23) mg/dL Creatinine 0.88 (0.60-1.20) mg/dL Glucose 80 (70-105) mg/dL Calcium 8.5 L (8.6-10.3) mg/dL Adrenal panel 12/11/17 Range/Units 06:12 Sodium 133 L (136-145) mEq/L Potassium 3.8 (3.5-5.1) mEq/L Chloride 103 (98-107) mEq/L Carbon Dioxide 22 L (23-29) mEq/L BUN 17 (8-23) mg/dL Creatinine 0.88 (0.60-1.20) mg/dL Glucose 80 (70-105) mg/dL Calcium 8.5 L (8.6-10.3) mg/dL Total Bilirubin 8.1 H (0.3-1.0) mg/dL AST 316 H (13-39) Units/L ALT 194 H (7-52) Units/L Alkaline Phosphatase 741 H (34-104) Units/L Albumin 2.6 L (3.5-5.7) g/dL All other labs normal. Consult Discharge Plan - Plan Referrals: Tiago Scott MD [Primary Care Provider] -
[2017-12-11] MEDS: Insulin LISPRO 300 UNITS/3 ML VIAL SQ SCH (19:29)
[2017-12-12] MEDS: Piperacillin/Tazobactam 3.375 GM in 0.9 % Sodium Chloride Mini Bag 100 ML IVPB SCH ×4 (00:49→23:56)
[2017-12-12] MEDS ORDERED: Insulin LISPRO 300 UNITS/3 ML VIAL SQ ONE (01:15)
[2017-12-12] MEDS: Insulin LISPRO 300 UNITS/3 ML VIAL SQ SCH ×4 (01:18→17:08)
[2017-12-12 04:36] LABS: Alanine Aminotransferase 182 Units/L (7-52); Albumin 2.4 g/dL (3.5-5.7); Albumin/Globulin Ratio 0.8 (1.1-2.2); Alkaline Phosphatase 692 Units/L (34-104); Aspartate Amino Transferase 279 Units/L (13-39); BUN/Creatinine Ratio 19 (6-26); Bilirubin,Total 9.4 mg/dL (0.3-1.0); Blood Urea Nitrogen 19 mg/dL (8-23); Calcium 8.2 mg/dL (8.6-10.3); Carbon Dioxide 23 mEq/L (23-29); Chloride 102 mEq/L (98-107); Globulin 3.1 g/dL (2.4-3.5); Glucose 282 mg/dL (70-105); Osmolality,Calculated 284 (280-300); Potassium 4.1 mEq/L (3.5-5.1); Sodium 131 mEq/L (136-145); Total Protein 5.5 g/dL (6.4-8.9); eGFR For African Americans > 60 (> 60); eGFR For Non-African Americans 53 (> 60)
[2017-12-12] MEDS: *HR* Enoxaparin 40 MG/0.4 ML SYRINGE SQ SCH (06:49)
[2017-12-12] MEDS: D5% in 0.45% NACL 1,000 ML IVC SCH (06:50)
[2017-12-12 08:07] LABS: Basophils % 0.3 %; Eosinophils # 0.2 K/mcL (0.0-0.6); Eosinophils % 1.4 %; Hematocrit 39.2 % (35.3-44.9); Hemoglobin 12.6 g/dL (11.5-15.4); Immature Granulocytes % 0.3 % (0-4); Lymphocytes # 4.3 K/mcL (0.6-4.6); Lymphocytes % 36.9 %; Mean Corpuscular HGB Conc 32.1 g/dL (31.6-35.5); Mean Corpuscular Hemoglobin 32.1 pg (28.0-33.3); Mean Platelet Volume 11.8 fL (9.4-12.4); Monocytes # 1.1 K/mcL (0.0-1.3); Monocytes % 9.6 %; Neutrophils # 5.9 K/mcL (1.6-8.9); Platelet Count 108 K/mcL (140-400); Red Blood Count 3.92 M/mcL (3.82-4.97); Red Cell Distribution Width 15.7 % (11.5-14.5); Segmented Neutrophils % 51.5 %
--- NOTE | 2017-12-12 08:54 | Gastroenterology Progress Note ---
Date of Encounter: 12/12/17 Time of Encounter: 08:54 - Assessment and plan (1) Conjugated hyperbilirubinemia Current Visit: Yes Status: Acute Assessment and plan: Patient with 8.3 total bilirubin level (direct bilirubin 5.1, indirect bilirubin 3.2) on admission Totol bilirubin increased to 9.4 Gallbladder ultrasound revealed a 1.2 cm gallstone or polyp with possible cholecystitis and mild gallbladder wall thickening measuring 3.8 mm. The common bile duct is within normal limits measuring 4.5 mm. MRCP revealed findings suggestive of acute cholecystitis, inflammatory stranding and dilation of the 2nd and 3rd segments of duodenum, mild to moderate hepatic steatosis, and no findings choledocholithiasis or biliary obstruction Case discussed at length with Interventional radiologist Dr. Saundra Farris. Her LFTs are elevated out of proportion to cholecystitis findings on imaging and are more consistent with intra-hepatic etiology, anticipate liver biopsy today. Patient is NPO after midnight. Obtain an anti-mitochondrial antibody to evaluate for primary biliary cholangitis Obtain JEFFERY to evaluate for auto-immune hepatitis. Differential includes drug induced hepatitis given recent Cipro use for recurrent UTI - Time Spent With Patient Total time spent is greater than 50% in coordination of care (as documented) at patient's floor/unit and/or counseling patient: - Subjective Interval history: Patient seen and examined resting comfortably in bed. Patient reports mild RUQ discomfort following dinner last PM but denied nausea or vomiting. She reports 5 loose BMs last PM and denies blood in stool. Patient is currently NPO since midnight awaiting liver biopsy this AM. - Constitutional Vitals: Temp Pulse Resp BP Pulse Ox 98.4 F 76 18 155/73 96 12/12/17 07:30 12/12/17 07:30 12/12/17 07:30 12/12/17 07:30 12/12/17 07:30 General appearance: Present: cooperative, A&O X 3, no acute distress, answers questions appropriately Exam: obese - Head Head exam: Present: atraumatic, normocephalic - Eye Eye exam: Present: normal appearance, sclera anicteric - Neck Neck exam general surgery: Present: normal inspection, trachea midline - Respiratory Respiratory exam: Present: CTAB - Cardiovascular Cardiovascular exam: Present: RRR, +S1, +S2 - GI/Abdominal GI/Abdominal exam: Present: normal bowel sounds, rebound, soft, tenderness ( positive Andrews's sign), no peritoneal signs - Rectal Rectal exam: Present: deferred - Extremities Exam Extremities exam: Present: warm - Neurological Exam Neurological exam: Present: no focal deficits - Psychiatric Psychiatric exam: Present: normal affect, normal mood - Skin Skin exam: Present: dry, intact, normal color, warm Results - Labs CBC & Chem 7: 12/12/17 07:56 12/12/17 03:24 Labs: Last Result Calcium 8.2 mg/dL (8.6-10.3) L 12/12/17 03:24 Triglycerides 99 mg/dL (< 150) 12/11/17 06:12 Entire Visit Hgb 12.6 g/dL (11.5-15.4) 12/12/17 07:56 Hct 39.2 % (35.3-44.9) 12/12/17 07:56 PT 13.0 Seconds (9.4-12.1) H 12/10/17 22:17 Total Bilirubin 9.4 mg/dL (0.3-1.0) H 12/12/17 03:24 AST 279 Units/L (13-39) H 12/12/17 03:24 ALT 182 Units/L (7-52) H 12/12/17 03:24 Amylase 43 Units/L (29-103) 12/10/17 17:10 Lipase 24 Units/L (11-82) 12/10/17 17:10 - ABG ABG results: PT/INR, D-dimer PT 13.0 Seconds (9.4-12.1) H 12/10/17 22:17 Consult Discharge Plan - Plan Referrals: Tiago Scott MD [Primary Care Provider] -
--- NOTE | 2017-12-12 12:34 | General Surgery Progress Note ---
Date of Encounter: 12/12/17 Time of Encounter: 11:30 Subjective Patient reports: still having pain Narrative: General Surgery - liver biopsy delayed until tomorrow due to Lovenox administered this AM Patient remains afebrile; 98.4; hemodynamically stable - pulse 76, respirations 18, blood pressure 155/73 Still complaining of right upper quadrant abdominal pain but was able to tolerate her evening meal without increased pain, nausea or vomiting. Lungs clear bilaterally Abdomen soft with tenderness in the right upper quadrant but no discernible intra-abdominal masses. No rebound. Laboratories: Diminishing leukocytosis, 11.5; hemoglobin stable at 12.6, hematocrit 39.2. Platelet count has fallen to 108,000 Electrolytes notable for a sodium of 131; bilirubin has increased to 9.4; AST has improved to 79, ALT has improved to 182; alkaline phosphatase has improved to 692. Impression: 72-year-old female with worsening hyperbilirubinemia/jaundice Now demonstrating thrombocytopenia (platelet count 108,000) Awaiting percutaneous hepatic biopsy per interventional radiology Will continue to follow Objective Vital Signs - Last 8 Hours Temp Pulse Resp BP Pulse Ox 12/12/17 07:30 98.4 F 76 18 155/73 96 Intake and Output 12/11/17 12/12/17 12/12/17 23:59 07:59 15:59 Intake Total 1200 / 1200 Balance 1200 / 1200 Intake: IV Fluids 1200 / 1200 D5% And 0.45% Nacl 1000 Ml Bag 1000 / 1000 1,000 ML @ 100 mls/hr IVC .Q10H MELANIE Rx#:[id number] Zosyn 3.375 GM In 0.9 % Sodium 200 / 200 Chloride (Mini-Bag +) 100 ML @ 25 mls/hr IVPB Q8HR MELANIE Rx#: [id number] Other: Meal NPO Blood Glucose* 240 205 - Labs 12/12/17 07:56 12/12/17 03:24 Diabetes panel 12/12/17 Range/Units 03:24 Sodium 131 L (136-145) mEq/L Potassium 4.1 (3.5-5.1) mEq/L Chloride 102 (98-107) mEq/L Carbon Dioxide 23 (23-29) mEq/L BUN 19 (8-23) mg/dL Creatinine 1.02 (0.60-1.20) mg/dL Glucose 282 H (70-105) mg/dL Calcium 8.2 L (8.6-10.3) mg/dL AST 279 H (13-39) Units/L ALT 182 H (7-52) Units/L Alkaline Phosphatase 692 H (34-104) Units/L Albumin 2.4 L (3.5-5.7) g/dL Calcium panel 12/12/17 Range/Units 03:24 Calcium 8.2 L (8.6-10.3) mg/dL Albumin 2.4 L (3.5-5.7) g/dL Pituitary panel 12/12/17 Range/Units 03:24 Sodium 131 L (136-145) mEq/L Potassium 4.1 (3.5-5.1) mEq/L Chloride 102 (98-107) mEq/L Carbon Dioxide 23 (23-29) mEq/L BUN 19 (8-23) mg/dL Creatinine 1.02 (0.60-1.20) mg/dL Glucose 282 H (70-105) mg/dL Calcium 8.2 L (8.6-10.3) mg/dL Adrenal panel 12/12/17 Range/Units 03:24 Sodium 131 L (136-145) mEq/L Potassium 4.1 (3.5-5.1) mEq/L Chloride 102 (98-107) mEq/L Carbon Dioxide 23 (23-29) mEq/L BUN 19 (8-23) mg/dL Creatinine 1.02 (0.60-1.20) mg/dL Glucose 282 H (70-105) mg/dL Calcium 8.2 L (8.6-10.3) mg/dL Total Bilirubin 9.4 H (0.3-1.0) mg/dL AST 279 H (13-39) Units/L ALT 182 H (7-52) Units/L Alkaline Phosphatase 692 H (34-104) Units/L Albumin 2.4 L (3.5-5.7) g/dL Consult Discharge Plan - Plan Referrals: Tiago Scott MD [Primary Care Provider] -
--- NOTE | 2017-12-12 17:07 | Internal Med Progress Note ---
Date of Encounter: 12/13/17 Time of Encounter: 10:00 - Assessment and plan (1) Conjugated hyperbilirubinemia Current Visit: Yes Status: Acute Assessment and plan: 1 on presentation total bili 8.3 direct bili 5.1 and direct bili 3.2 -today total bilirubin increased to 9.4 Gallbladder ultrasound revealed a 1.2 cm gallstone or polyp with possible cholecystitis and mild gallbladder wall thickening measuring 2.8 mm. The common bile duct is within normal limits measuring 4.5 mm MRCP revealed findings suggestive of acute cholecystitis inflammatory stranding and dilatation of the second and third segments of duodenum, mild to moderate hepatic steatosis no finding choledocholithiasis or biliary obstruction- according to GI notes LFTs are elevated out of proportion to cholecystitis findings on imaging-are more consistent with intrahepatic etiology anticipating liver biopsy however patient received Lovenox this a.m. and biopsy had to be deferred until tomorrow morning. Patient will be nothing by mouth after midnight (2) Cholecystitis Current Visit: Yes Status: Acute Assessment and plan: 1 patient still experiencing some right upper quadrant pain however no nausea and she has been tolerating her meals. AST has improved to 79 ALT improved to 182-worsening hyperbilirubinemia/ jaundice Gallbladder ultrasound revealed 1.2 cm gallstone or polyp with possible cholecystitis and mild gallbladder wall thickening measuring 3.8The common bile duct is within normal limits measuring 4.5 mm. MRCP revealed findings suggestive of acute cholecystitis, inflammatory stranding and dilation of the 2nd and 3rd segments of duodenum, mild to moderate hepatic steatosis, and no findings choledocholithiasis or biliary obstruction Per GI note her LFTs are elevated out of proportion to cholecystitis findings on imaging and are more consistent with intrahepatic etiology-patient will undergo liver biopsy Surgery has been consulted (3) Diabetes mellitus Current Visit: No Status: Chronic Assessment and plan: Accu-Cheks every 6 hours while nothing by mouth Qualifiers: Diabetes mellitus type: type 2 Diabetes mellitus intermodal truck driver insulin use: with intermodal truck driver use Diabetes mellitus complication status: without complication Qualified Code(s): E11.9 - Type 2 diabetes mellitus without complications; Z79.4 - superintendent marine oil terminal (current) use of insulin; Z79.4 - detention ( current) use of insulin; Z79.4 - detention (current) use of insulin; Z79.4 - superintendent marine oil terminal (current) use of insulin (4) HTN (hypertension) Current Visit: Yes Status: Acute Assessment and plan: Blood pressure stable continue with lisinopril Qualifiers: Hypertension type: essential hypertension Qualified Code(s): I10 - Essential (primary) hypertension (5) Elevated LFTs Current Visit: Yes Status: Acute Assessment and plan: LFTs are trending down AST is 79 ALT is 182 we will continue to monitor (6) Thrombocytopenia Current Visit: Yes Status: Acute Assessment and plan: Patient has a drop in platelet count 108,000 we will continue to monitor-hold Lovenox (7) DVT prophylaxis Current Visit: Yes Status: Acute Assessment and plan: Holding Lovenox due to drop in platelets - Subjective Interval history: Patient continues to have some right upper quadrant abdominal pain however she says is not as bad as it was yesterday she was able to tolerate evening meal without any pain nausea vomiting. - Constitutional Vitals: Temp Pulse Resp BP Pulse Ox 98.6 F 60 18 143/78 98 12/12/17 15:01 12/12/17 15:01 12/12/17 15:01 12/12/17 15:01 12/12/17 15:01 General appearance: Present: A&O X 3 - Head Head exam: Present: atraumatic, normocephalic - Eye Eye exam: Present: PERRL, scleral icterus, conjuntiva pink, sclera anicteric Pupils: Present: PERRL - Neck Neck exam general surgery: Present: supple, trachea midline. Absent: lymphadenopathy - Respiratory Respiratory exam: Present: CTAB. Absent: accessory muscle use, rales, rhonchi, wheezes - Cardiovascular Cardiovascular exam: Present: RRR, +S1, +S2. Absent: diastolic murmur, gallop, rubs, systolic murmur - GI/Abdominal GI/Abdominal exam: Present: normal bowel sounds, soft, tenderness, no peritoneal signs. Absent: distended - Extremities Exam Extremities exam: Present: warm, radial pulses palpable and symmetrical. Absent : calf tenderness, cyanotic, pedal edema - Neurological Exam Neurological exam: Present: CN II-XII intact, oriented X3, no focal deficits. Absent: pronater drift, facial droop, speech deficit - Skin Skin exam: Present: dry, intact Additional comments: Jaundiced Internal Medicine: Result - Labs CBC & Chem 7: 12/13/17 03:45 12/13/17 03:45 Labs: Short CBC 12/12/17 Range/Units 07:56 WBC 11.5 H (4.3-11.1) K/mcL Hgb 12.6 (11.5-15.4) g/dL Hct 39.2 (35.3-44.9) % Plt Count 108 L (140-400) K/mcL Neutrophils # 5.9 (1.6-8.9) K/mcL BMP 12/12/17 03:24 Sodium 131 L Potassium 4.1 Chloride 102 Carbon Dioxide 23 BUN 19 Creatinine 1.02 Glucose 282 H Calcium 8.2 L Liver Function 12/12/17 Range/Units 03:24 Total Bilirubin 9.4 H (0.3-1.0) mg/dL AST 279 H (13-39) Units/L ALT 182 H (7-52) Units/L Alkaline Phosphatase 692 H (34-104) Units/L Albumin 2.4 L (3.5-5.7) g/dL - ABG Interpretation ABG results: PT/INR, D-dimer PT 13.0 Seconds (9.4-12.1) H 12/10/17 22:17 Consult Discharge Plan - Plan Referrals: Tiago Scott MD [Primary Care Provider] -
[2017-12-13] MEDS: Insulin LISPRO 300 UNITS/3 ML VIAL SQ SCH ×4 (00:05→17:53)
[2017-12-13] MEDS: 0.9 % Sodium Chloride 1,000 ML IVC SCH ×2 (03:35→17:53)
[2017-12-13 04:03] LABS: Hematocrit 33.8 % (35.3-44.9); Hemoglobin 11.3 g/dL (11.5-15.4); Mean Corpuscular HGB Conc 33.4 g/dL (31.6-35.5); Mean Corpuscular Hemoglobin 31.7 pg (28.0-33.3); Mean Corpuscular Volume 94.7 fL (83.0-100.0); Mean Platelet Volume 11.2 fL (9.4-12.4); Platelet Count 117 K/mcL (140-400); Red Blood Count 3.57 M/mcL (3.82-4.97); Red Cell Distribution Width 15.4 % (11.5-14.5); Segmented Neutrophils % 49.4 %
[2017-12-13 04:04] LABS: Basophils % 0.3 %; Eosinophils # 0.2 K/mcL (0.0-0.6); Eosinophils % 1.3 %; Immature Granulocytes % 0.7 % (0-4); Lymphocytes # 4.6 K/mcL (0.6-4.6); Lymphocytes % 36.6 %; Monocytes # 1.5 K/mcL (0.0-1.3); Monocytes % 11.7 %; Neutrophils # 6.2 K/mcL (1.6-8.9)
[2017-12-13 04:07] LABS: INR 1.2; Prothrombin Time 13.5 Seconds (9.4-12.1)
[2017-12-13 04:18] LABS: Albumin 2.3 g/dL (3.5-5.7); Albumin/Globulin Ratio 0.8 (1.1-2.2); Bilirubin,Direct 5.7 mg/dL (0.0-0.2); Bilirubin,Indirect 3.4 mg/dL (0.0-1.2); Bilirubin,Total 9.1 mg/dL (0.3-1.0); Potassium 4.3 mEq/L (3.5-5.1); Total Protein 5.3 g/dL (6.4-8.9)
--- NOTE | 2017-12-13 07:59 | Gastroenterology Progress Note ---
<Austin Brooke - Last Filed: 12/13/17 10:19> Date of Encounter: 12/13/17 Time of Encounter: 07:56 - Assessment and plan (1) Conjugated hyperbilirubinemia Current Visit: Yes Status: Acute Assessment and plan: Patient with 8.3 total bilirubin level (direct bilirubin 5.1, indirect bilirubin 3.2) on admission Totol bilirubin 9.1 today, LFTs remain elevated but are slowly improving Gallbladder ultrasound revealed a 1.2 cm gallstone or polyp with possible cholecystitis and mild gallbladder wall thickening measuring 3.8 mm. The common bile duct is within normal limits measuring 4.5 mm. MRCP revealed findings suggestive of acute cholecystitis, inflammatory stranding and dilation of the 2nd and 3rd segments of duodenum, mild to moderate hepatic steatosis, and no findings choledocholithiasis or biliary obstruction Case discussed at length with Interventional radiologist Dr. Saundra Farris. Her LFTs are elevated out of proportion to cholecystitis findings on imaging and are more consistent with intra-hepatic etiology, anticipate liver biopsy today. Patient is NPO after midnight. Anti-mitochondrial antibody results pending to evaluate for primary biliary cholangitis JEFFERY result pending to evaluate for auto-immune hepatitis. Differential includes drug induced hepatitis given recent 5 day course of Cipro for recurrent UTI Will start Ursodiol 500mg PO BID for primary biliary cholangitis treatment until Anti-mitochondrial antibody results are back Patient is stable for outpatient management from a GI perspective Please scheduled follow up in GI clinic within 1-2 weeks - Time Spent With Patient Total time spent is greater than 50% in coordination of care (as documented) at patient's floor/unit and/or counseling patient: - Subjective Interval history: Patient seen and examined. Patient reports ongoing right upper quadrant discomfort but was able to tolerate evening meal yesterday without any pain nausea vomiting. She reports pale stool, itching, and jaundice. Her liver biopsy was postponed until today due to Lovenox administration yesterday morning. Patient has been NPO since midnight. - Constitutional Vitals: Temp Pulse Resp BP Pulse Ox 98.1 F 93 18 100/63 96 12/13/17 06:37 12/13/17 06:37 12/13/17 06:37 12/13/17 06:37 12/13/17 06:37 General appearance: Present: cooperative, A&O X 3, no acute distress, answers questions appropriately - Head Head exam: Present: atraumatic, normocephalic - Eye Eye exam: Present: PERRL, scleral icterus - Neck Neck exam general surgery: Present: normal inspection, trachea midline - Respiratory Respiratory exam: Present: CTAB - Cardiovascular Cardiovascular exam: Present: RRR, +S1, +S2 - GI/Abdominal GI/Abdominal exam: Present: normal bowel sounds, rebound, soft, tenderness (RUQ , positive Andrews's sign), no peritoneal signs. Absent: guarding - Rectal Rectal exam: Present: deferred - Extremities Exam Extremities exam: Present: warm - Neurological Exam Neurological exam: Present: no focal deficits - Psychiatric Psychiatric exam: Present: anxious, normal affect - Skin Skin exam: Present: dry, intact, normal color, warm Results - Labs CBC & Chem 7: 12/13/17 03:45 12/13/17 03:45 Labs: Last Result Calcium 8.0 mg/dL (8.6-10.3) L 12/13/17 03:45 Triglycerides 99 mg/dL (< 150) 12/11/17 06:12 Entire Visit Hgb 11.3 g/dL (11.5-15.4) L 12/13/17 03:45 Hct 33.8 % (35.3-44.9) L 12/13/17 03:45 PT 13.5 Seconds (9.4-12.1) H 12/13/17 03:45 Total Bilirubin 9.1 mg/dL (0.3-1.0) H 12/13/17 03:45 AST 266 Units/L (13-39) H 12/13/17 03:45 ALT 180 Units/L (7-52) H 12/13/17 03:45 Amylase 43 Units/L (29-103) 12/10/17 17:10 Lipase 24 Units/L (11-82) 12/10/17 17:10 - ABG ABG results: PT/INR, D-dimer PT 13.5 Seconds (9.4-12.1) H 12/13/17 03:45 Consult Discharge Plan - Plan Referrals: Tiago Scott MD [Primary Care Provider] - <Josephine Garza - Last Filed: 12/13/17 12:35> Date of Encounter: 12/13/17 Time of Encounter: 12:00 - Time Spent With Patient Total time spent is greater than 50% in coordination of care (as documented) at patient's floor/unit and/or counseling patient: - Constitutional Vitals: Temp Pulse Resp BP Pulse Ox 98.1 F 93 18 107/65 100 12/13/17 11:00 12/13/17 11:27 12/13/17 11:00 12/13/17 11:27 12/13/17 11:27 Results - Labs CBC & Chem 7: 12/13/17 03:45 12/13/17 03:45 Labs: Last Result Calcium 8.0 mg/dL (8.6-10.3) L 12/13/17 03:45 Triglycerides 99 mg/dL (< 150) 12/11/17 06:12 Entire Visit Hgb 11.3 g/dL (11.5-15.4) L 12/13/17 03:45 Hct 33.8 % (35.3-44.9) L 12/13/17 03:45 PT 13.5 Seconds (9.4-12.1) H 12/13/17 03:45 Total Bilirubin 9.1 mg/dL (0.3-1.0) H 12/13/17 03:45 AST 266 Units/L (13-39) H 12/13/17 03:45 ALT 180 Units/L (7-52) H 12/13/17 03:45 Amylase 43 Units/L (29-103) 12/10/17 17:10 Lipase 24 Units/L (11-82) 12/10/17 17:10 - ABG ABG results: PT/INR, D-dimer PT 13.5 Seconds (9.4-12.1) H 12/13/17 03:45 - Impressions Impressions Lymph Node Biopsy/Excision 12/13/17 00:00 IMPRESSION: Successful ultrasound-guided biopsy of the left hepatic lobe. D/ / Austin Partida MD / Austin Partida MD Interpreting Provider: Austin Partida MD - Attending Attestation I have personally performed a face to face evaluation on this patient. I have reviewed and agree with the care plan. History and Exam by me shows: Patient seen denies any abdominal pain. Elevated LFTs are most probably due to primary biliary cholangitis or due to medication induced cholestatic hepatitis. JEFFERY AMA are pending. We will start the patient on ursodiol empirically follow -up with GI as an outpatient after discharge
[2017-12-13] MEDS: Piperacillin/Tazobactam 3.375 GM in 0.9 % Sodium Chloride Mini Bag 100 ML IVPB SCH ×2 (08:29→23:54)
[2017-12-13] MEDS ORDERED: *HR* FentaNYL (PF) 100 MCG/2 ML VIAL IVP ONE (09:51)
[2017-12-13] MEDS ORDERED: *HR* Midazolam HCl 2 MG/2 ML VIAL IVP ONE (09:51)
[2017-12-13] MEDS ORDERED: 0.9 % Sodium Chloride 500 ML ONE (10:05)
--- NOTE | 2017-12-13 10:25 | IR Procedure Note ---
Date of procedure: 12/13/17 Consent Obtained: Written consent Timeout: Correct patient and procedure verified, Correct site verified, Time out performed, Skin prep completed Local anesthetic: Lidocaine 1% Indications: Hepatic steatosis, elevated liver enzymes Procedure Performed: U/S guided liver biopsy Was there an medical assistant per diem present: No Site/Technique: Epigastric approach. 3 cores with 18g needle. Results/Findings: Good tissue cores. Surgiflo used in tract. Estimated blood loss (cc): 2 Complications: None; Tolerated procedure well Post Procedure Treatment Plan: Monitoring in pts room Specimen: to lab
[2017-12-13] MEDS: Pantoprazole 40 MG VIAL IVP SCH (11:23)
--- NOTE | 2017-12-13 15:14 | General Surgery Progress Note ---
Date of Encounter: 12/13/17 Time of Encounter: 14:45 Subjective Patient reports: no new complaints Narrative: General Surgery - liver biopsy completed today. Patient tolerated the procedure well. Results pending Right upper quadrant abd pain secondary to the percutaneous biopsy Afebrile, most recently 98.1, pulse 91, respirations 18, blood pressure 136/ 74 Labs: Bilirubin slightly improved to 9.1 (previously 9.4); AST has improved to 266, ALT essentially unchanged at 180; alkaline phosphatase has improved to 646. The patient is feeling better. Discussed with patient and her family potential cholecystectomy. As the patient is feeling better and LFTs are slowly improving, I have recommended waiting until hepatic biopsy results are known. If symptoms worsen and can be attributed to the gallbladder and gallstones - will consider surgical intervention. The patient and her family expressed understanding and agreement with this treatment plan. Recommendation - repeat labs in AM allow regular diet - monitor renal function as Cr significantly increased today to 1.26 I will see patient tomorrow. Objective Vital Signs - Last 8 Hours Temp Pulse Resp BP Pulse Ox 12/13/17 12:30 91 136/74 12/13/17 12:12 85 111/70 12/13/17 11:57 87 103/66 12/13/17 11:42 93 103/67 12/13/17 11:27 93 107/65 100 12/13/17 11:00 98.1 F 92 18 134/71 97 12/13/17 10:16 85 18 137/66 100 12/13/17 10:11 96 12 141/65 100 12/13/17 09:56 91 21 139/68 Intake and Output 12/12/17 12/13/17 12/13/17 23:59 07:59 15:59 Intake Total 100 / 100 Balance 100 / 100 Intake: IV Fluids 100 / 100 Zosyn 3.375 GM In 0.9 % Sodium 100 / 100 Chloride (Mini-Bag +) 100 ML @ 25 mls/hr IVPB Q8HR MELANIE Rx#: [id number] Oral 0 / 0 Other: # Voids 1 Weight 81.565 kg Blood Glucose* 291 262 Patient Weight 12/13/17 23:59 Weight 81.565 kg - Labs 12/13/17 03:45 12/13/17 03:45 Diabetes panel 12/13/17 Range/Units 03:45 Sodium 133 L (136-145) mEq/L Potassium 4.3 (3.5-5.1) mEq/L Chloride 105 (98-107) mEq/L Carbon Dioxide 24 (23-29) mEq/L BUN 21 (8-23) mg/dL Creatinine 1.26 H (0.60-1.20) mg/dL Glucose 268 H (70-105) mg/dL Calcium 8.0 L (8.6-10.3) mg/dL AST 266 H (13-39) Units/L ALT 180 H (7-52) Units/L Alkaline Phosphatase 646 H (34-104) Units/L Albumin 2.3 L (3.5-5.7) g/dL Calcium panel 12/13/17 Range/Units 03:45 Calcium 8.0 L (8.6-10.3) mg/dL Albumin 2.3 L (3.5-5.7) g/dL Pituitary panel 12/13/17 Range/Units 03:45 Sodium 133 L (136-145) mEq/L Potassium 4.3 (3.5-5.1) mEq/L Chloride 105 (98-107) mEq/L Carbon Dioxide 24 (23-29) mEq/L BUN 21 (8-23) mg/dL Creatinine 1.26 H (0.60-1.20) mg/dL Glucose 268 H (70-105) mg/dL Calcium 8.0 L (8.6-10.3) mg/dL Adrenal panel 12/13/17 Range/Units 03:45 Sodium 133 L (136-145) mEq/L Potassium 4.3 (3.5-5.1) mEq/L Chloride 105 (98-107) mEq/L Carbon Dioxide 24 (23-29) mEq/L BUN 21 (8-23) mg/dL Creatinine 1.26 H (0.60-1.20) mg/dL Glucose 268 H (70-105) mg/dL Calcium 8.0 L (8.6-10.3) mg/dL Total Bilirubin 9.1 H (0.3-1.0) mg/dL AST 266 H (13-39) Units/L ALT 180 H (7-52) Units/L Alkaline Phosphatase 646 H (34-104) Units/L Albumin 2.3 L (3.5-5.7) g/dL Consult Discharge Plan - Plan Referrals: Tiago Scott MD [Primary Care Provider] -
[2017-12-13] MEDS ORDERED: *HR* HYDROcodone/Acet 5/325 mg TABLET PO PRN (17:51)
--- NOTE | 2017-12-13 17:52 | Internal Med Progress Note ---
Date of Encounter: 12/13/17 Time of Encounter: 15:00 - Assessment and plan (1) Conjugated hyperbilirubinemia Current Visit: Yes Status: Acute Assessment and plan: on presentation total bili 8.3 direct bili 5.1 and direct bili 3.2 -today total bilirubin slightly improved 9.1 Gallbladder ultrasound revealed a 1.2 cm gallstone or polyp with possible cholecystitis and mild gallbladder wall thickening measuring 2.8 mm. The common bile duct is within normal limits measuring 4.5 mm MRCP revealed findings suggestive of acute cholecystitis inflammatory stranding and dilatation of the second and third segments of duodenum, mild to moderate hepatic steatosis no finding choledocholithiasis or biliary obstruction- according to GI notes LFTs are elevated out of proportion to cholecystitis findings on imaging-are more consistent with intrahepatic etiology patient underwent liver biopsy today awaiting results (2) Cholecystitis Current Visit: Yes Status: Acute Assessment and plan: Surgery has been consult -Dr. hardy did speak with family today potential cholecystectomy however awaiting results of liver biopsy.-However if symptoms worsen and can be attributed to the gallbladder and gallstones he would consider surgical intervention (3) Diabetes mellitus Current Visit: No Status: Chronic Assessment and plan: Accu-Cheks before meals at bedtime-site scale insulin Qualifiers: Diabetes mellitus type: type 2 Diabetes mellitus salvage determiner insulin use: with chcf use Diabetes mellitus complication status: without complication Qualified Code(s): E11.9 - Type 2 diabetes mellitus without complications; Z79.4 - MCC (current) use of insulin; Z79.4 - parts counterman ( current) use of insulin; Z79.4 - MCC (current) use of insulin; Z79.4 - M[facility] (current) use of insulin (4) HTN (hypertension) Current Visit: Yes Status: Acute Assessment and plan: The patient's creatinine slightly elevated we will hold lisinopril tonight-give hydralazine as needed for elevated blood pressure Qualifiers: Hypertension type: essential hypertension Qualified Code(s): I10 - Essential (primary) hypertension (5) Elevated LFTs Current Visit: Yes Status: Acute Assessment and plan: Trending down will continue to monitor (6) Thrombocytopenia Current Visit: Yes Status: Acute Assessment and plan: Holding Lovenox for now-platelets slightly improved (7) DVT prophylaxis Current Visit: Yes Status: Acute Assessment and plan: SCDs due to thrombocytopenia - Subjective Interval history: Patient underwent liver biopsy today and tolerated well. She mostly complains of some slight right upper quadrant abdominal pain from the biopsy site otherwise she is doing well. - Constitutional Vitals: Temp Pulse Resp BP Pulse Ox 99.1 F 84 17 115/73 99 12/13/17 15:56 12/13/17 15:56 12/13/17 15:56 12/13/17 15:56 12/13/17 15:56 General appearance: Present: A&O X 3 - Head Head exam: Present: atraumatic, normocephalic - Eye Eye exam: Present: PERRL, conjuntiva pink, sclera anicteric Pupils: Present: PERRL - Neck Neck exam general surgery: Present: supple, trachea midline. Absent: lymphadenopathy - Respiratory Respiratory exam: Present: CTAB. Absent: accessory muscle use, rales, rhonchi, wheezes - Cardiovascular Cardiovascular exam: Present: RRR, +S1, +S2. Absent: diastolic murmur, gallop, rubs, systolic murmur - GI/Abdominal GI/Abdominal exam: Present: normal bowel sounds, soft, tenderness, no peritoneal signs. Absent: distended - Extremities Exam Extremities exam: Present: warm, radial pulses palpable and symmetrical. Absent : calf tenderness, cyanotic, pedal edema - Neurological Exam Neurological exam: Present: CN II-XII intact, oriented X3, no focal deficits. Absent: pronater drift, facial droop, speech deficit - Skin Skin exam: Present: dry, intact Additional comments: Jaundiced Internal Medicine: Result - Labs CBC & Chem 7: 12/13/17 03:45 12/13/17 03:45 Labs: Short CBC 12/13/17 Range/Units 03:45 WBC 12.5 H (4.3-11.1) K/mcL Hgb 11.3 L (11.5-15.4) g/dL Hct 33.8 L (35.3-44.9) % Plt Count 117 L (140-400) K/mcL Neutrophils # 6.2 (1.6-8.9) K/mcL BMP 12/13/17 03:45 Sodium 133 L Potassium 4.3 Chloride 105 Carbon Dioxide 24 BUN 21 Creatinine 1.26 H Glucose 268 H Calcium 8.0 L Liver Function 12/13/17 Range/Units 03:45 Total Bilirubin 9.1 H (0.3-1.0) mg/dL Direct Bilirubin 5.7 H (0.0-0.2) mg/dL AST 266 H (13-39) Units/L ALT 180 H (7-52) Units/L Alkaline Phosphatase 646 H (34-104) Units/L Albumin 2.3 L (3.5-5.7) g/dL - ABG Interpretation ABG results: PT/INR, D-dimer PT 13.5 Seconds (9.4-12.1) H 12/13/17 03:45 - Impressions Impressions Lymph Node Biopsy/Excision 12/13/17 00:00 IMPRESSION: Successful ultrasound-guided biopsy of the left hepatic lobe. D/ / Austin Partida MD / Austin Partida MD Interpreting Provider: Austin Partida MD Consult Discharge Plan - Plan Referrals: Tiago Scott MD [Primary Care Provider] -
[2017-12-13] MEDS ORDERED: Insulin LISPRO 300 UNITS/3 ML VIAL SQ SCH (21:00)
[2017-12-14] MEDS ORDERED: Piperacillin/Tazobactam 3.375 GM in 0.9 % Sodium Chloride Mini Bag 100 ML IVPB SCH
[2017-12-14] MEDS: 0.9 % Sodium Chloride 1,000 ML IVC SCH ×2 (06:25→15:32)
[2017-12-14 06:27] LABS: Basophils # 0.1 K/mcL (0.0-0.2); Basophils % 0.4 %; Eosinophils # 0.1 K/mcL (0.0-0.6); Hematocrit 35.5 % (35.3-44.9); Hemoglobin 11.5 g/dL (11.5-15.4); Lymphocytes # 3.8 K/mcL (0.6-4.6); Lymphocytes % 31.9 %; Mean Corpuscular HGB Conc 32.4 g/dL (31.6-35.5); Mean Corpuscular Hemoglobin 31.7 pg (28.0-33.3); Mean Corpuscular Volume 97.8 fL (83.0-100.0); Mean Platelet Volume 11.5 fL (9.4-12.4); Monocytes # 1.3 K/mcL (0.0-1.3); Monocytes % 10.5 %; Neutrophils # 6.6 K/mcL (1.6-8.9); Nucleated Red Blood Cells 0.2 /100 WBC (0); Platelet Count 126 K/mcL (140-400); Red Blood Count 3.63 M/mcL (3.82-4.97); Red Cell Distribution Width 15.5 % (11.5-14.5); Segmented Neutrophils % 55.2 %
[2017-12-14 06:42] LABS: Calcium 7.9 mg/dL (8.6-10.3); Potassium 4.9 mEq/L (3.5-5.1)
[2017-12-14] MEDS: Insulin LISPRO 300 UNITS/3 ML VIAL SQ SCH ×4 (08:00→21:15)
[2017-12-14] MEDS: Pantoprazole 40 MG VIAL IVP SCH (08:00)
[2017-12-14 08:49] LABS: Albumin 2.4 g/dL (3.5-5.7); Albumin/Globulin Ratio 0.8 (1.1-2.2); Bilirubin,Direct 5.5 mg/dL (0.0-0.2); Bilirubin,Indirect 3.8 mg/dL (0.0-1.2); Bilirubin,Total 9.3 mg/dL (0.3-1.0); Globulin 3.2 g/dL (2.4-3.5); Total Protein 5.6 g/dL (6.4-8.9)
--- NOTE | 2017-12-14 11:37 | Internal Med Progress Note ---
Date of Encounter: 12/14/17 Time of Encounter: 11:37 - Assessment and plan (1) Conjugated hyperbilirubinemia Current Visit: Yes Status: Acute Assessment and plan: on presentation total bili 8.3 direct bili 5.1 and direct bili 3.2 -today total bilirubin 9.3 Gallbladder ultrasound revealed a 1.2 cm gallstone or polyp with possible cholecystitis and mild gallbladder wall thickening measuring 2.8 mm. The common bile duct is within normal limits measuring 4.5 mm MRCP revealed findings suggestive of acute cholecystitis inflammatory stranding and dilatation of the second and third segments of duodenum, mild to moderate hepatic steatosis no finding choledocholithiasis or biliary obstruction- according to GI notes LFTs are elevated out of proportion to cholecystitis findings on imaging-are more consistent with intrahepatic etiology- awaiting hepatic biopsy results (2) Cholecystitis Current Visit: Yes Status: Acute Assessment and plan: Surgery has been consult -Dr. hardy did speak with family today potential cholecystectomy however awaiting results of liver biopsy.-However if symptoms worsen and can be attributed to the gallbladder and gallstones he would consider surgical intervention (3) Diabetes mellitus Current Visit: No Status: Chronic Assessment and plan: Accu-Cheks before meals at bedtime- has had some elevated blood sugars increased to medium sliding scale insulin Qualifiers: Diabetes mellitus type: type 2 Diabetes mellitus exterminator helper insulin use: with exterminator helper use Diabetes mellitus complication status: without complication Qualified Code(s): E11.9 - Type 2 diabetes mellitus without complications; Z79.4 - termite control servicer (current) use of insulin; Z79.4 - longterm ( current) use of insulin; Z79.4 - termite control servicer (current) use of insulin; Z79.4 - termite control servicer (current) use of insulin (4) HTN (hypertension) Current Visit: Yes Status: Acute Assessment and plan: The patient's creatinine slightly elevated we will hold lisinopril tonight-give hydralazine as needed for elevated blood pressure Qualifiers: Hypertension type: essential hypertension Qualified Code(s): I10 - Essential (primary) hypertension (5) Elevated LFTs Current Visit: Yes Status: Acute Assessment and plan: stable at this time we will continue to monitor (6) Thrombocytopenia Current Visit: Yes Status: Acute Assessment and plan: Holding Lovenox for now-platelets improving (7) DVT prophylaxis Current Visit: Yes Status: Acute Assessment and plan: SCDs due to thrombocytopenia - Time Spent With Patient less than 15 minutes - Subjective Interval history: Patient underwent liver biopsy today and tolerated well. She mostly complains of some slight right upper quadrant abdominal pain from the biopsy site otherwise she is doing well. - Constitutional Vitals: Temp Pulse Resp BP Pulse Ox 97.9 F 89 16 136/66 99 12/14/17 11:29 12/14/17 11:29 12/14/17 11:29 12/14/17 11:29 12/14/17 11:29 General appearance: Present: A&O X 3 Internal Medicine: Result - Labs CBC & Chem 7: 12/14/17 05:29 12/14/17 05:29 Labs: Short CBC 12/14/17 Range/Units 05:29 WBC 11.9 H (4.3-11.1) K/mcL Hgb 11.5 (11.5-15.4) g/dL Hct 35.5 (35.3-44.9) % Plt Count 126 L (140-400) K/mcL Neutrophils # 6.6 (1.6-8.9) K/mcL BMP 12/14/17 05:29 Sodium 130 L Potassium 4.9 Chloride 104 Carbon Dioxide 20 L BUN 22 Creatinine 1.26 H Glucose 257 H Calcium 7.9 L Liver Function 12/14/17 Range/Units 05:29 Total Bilirubin 9.3 H (0.3-1.0) mg/dL Direct Bilirubin 5.5 H (0.0-0.2) mg/dL AST 287 H (13-39) Units/L ALT 198 H (7-52) Units/L Alkaline Phosphatase 610 H (34-104) Units/L Albumin 2.4 L (3.5-5.7) g/dL - ABG Interpretation ABG results: PT/INR, D-dimer PT 13.5 Seconds (9.4-12.1) H 12/13/17 03:45 Consult Discharge Plan - Plan Referrals: Tiago Scott MD [Primary Care Provider] -
[2017-12-14] MEDS: Piperacillin/Tazobactam 3.375 GM in 0.9 % Sodium Chloride Mini Bag 100 ML IVPB SCH ×2 (11:45→16:58)
--- NOTE | 2017-12-14 11:45 | General Surgery Progress Note ---
Date of Encounter: 12/14/17 Time of Encounter: 11:38 Subjective Patient reports: no new complaints Narrative: General Surgery - patient voicing no new complaints; afebrile vital signs stable Right upper quadrant abdominal pain has diminished. The increased abdominal pain yesterday was likely due to the percutaneous hepatic biopsy. Leukocytosis continues to diminish; 11.9 with normal differential. Hemoglobin 11.5, hematocrit 35.5, platelet count 126,000 Patient remains jaundiced with bilirubin 9.3 (previously 9.1). Other liver enzymes are essentially stable. AST has increased to 287 previously 266), ALT increased to 198 (previously 180); alkaline phosphatase has fallen to 610, previously 646) Tolerating diet, no nausea or vomiting. Awaiting hepatic biopsy results. Overall status essentially stable. Creatinine remains elevated at 1.26 Objective Vital Signs - Last 8 Hours Temp Pulse Resp BP Pulse Ox 12/14/17 11:29 97.9 F 89 16 136/66 99 12/14/17 07:30 98.8 F 95 16 156/77 98 Intake and Output 12/13/17 12/14/17 12/14/17 23:59 07:59 15:59 Intake Total 1100 / 1100 Balance 1100 / 1100 Intake: IV Fluids 1100 / 1100 0.9 % Sodium Chloride 1,000 ML 1000 / 1000 @ 100 mls/hr IVC .Q10H [facility] Rx#: [id number] Zosyn 3.375 GM In 0.9 % Sodium 100 / 100 Chloride (Mini-Bag +) 100 ML @ 25 mls/hr IVPB Q8HR [facility]IE Rx#: [id number] Other: Blood Glucose* 337 258 303 - Labs 12/14/17 05:29 12/14/17 05:29 Diabetes panel 12/14/17 Range/Units 05:29 Sodium 130 L (136-145) mEq/L Potassium 4.9 (3.5-5.1) mEq/L Chloride 104 (98-107) mEq/L Carbon Dioxide 20 L (23-29) mEq/L BUN 22 (8-23) mg/dL Creatinine 1.26 H (0.60-1.20) mg/dL Glucose 257 H (70-105) mg/dL Calcium 7.9 L (8.6-10.3) mg/dL AST 287 H (13-39) Units/L ALT 198 H (7-52) Units/L Alkaline Phosphatase 610 H (34-104) Units/L Albumin 2.4 L (3.5-5.7) g/dL Calcium panel 12/14/17 Range/Units 05:29 Calcium 7.9 L (8.6-10.3) mg/dL Albumin 2.4 L (3.5-5.7) g/dL Pituitary panel 12/14/17 Range/Units 05:29 Sodium 130 L (136-145) mEq/L Potassium 4.9 (3.5-5.1) mEq/L Chloride 104 (98-107) mEq/L Carbon Dioxide 20 L (23-29) mEq/L BUN 22 (8-23) mg/dL Creatinine 1.26 H (0.60-1.20) mg/dL Glucose 257 H (70-105) mg/dL Calcium 7.9 L (8.6-10.3) mg/dL Adrenal panel 12/14/17 Range/Units 05:29 Sodium 130 L (136-145) mEq/L Potassium 4.9 (3.5-5.1) mEq/L Chloride 104 (98-107) mEq/L Carbon Dioxide 20 L (23-29) mEq/L BUN 22 (8-23) mg/dL Creatinine 1.26 H (0.60-1.20) mg/dL Glucose 257 H (70-105) mg/dL Calcium 7.9 L (8.6-10.3) mg/dL Total Bilirubin 9.3 H (0.3-1.0) mg/dL AST 287 H (13-39) Units/L ALT 198 H (7-52) Units/L Alkaline Phosphatase 610 H (34-104) Units/L Albumin 2.4 L (3.5-5.7) g/dL Consult Discharge Plan - Plan Referrals: Tiago Scott MD [Primary Care Provider] -
[2017-12-15] MEDS: Piperacillin/Tazobactam 3.375 GM in 0.9 % Sodium Chloride Mini Bag 100 ML IVPB SCH ×3 (00:56→15:16)
[2017-12-15] MEDS: 0.9 % Sodium Chloride 1,000 ML IVC SCH ×2 (01:46→15:16)
[2017-12-15 06:00] LABS: Basophils # 0.1 K/mcL (0.0-0.2); Basophils % 0.4 %; Eosinophils # 0.2 K/mcL (0.0-0.6); Eosinophils % 1.1 %; Hematocrit 32.4 % (35.3-44.9); Hemoglobin 10.9 g/dL (11.5-15.4); Immature Granulocytes % 1.2 % (0-4); Lymphocytes # 4.7 K/mcL (0.6-4.6); Lymphocytes % 34.5 %; Mean Corpuscular HGB Conc 33.6 g/dL (31.6-35.5); Mean Corpuscular Hemoglobin 31.8 pg (28.0-33.3); Mean Corpuscular Volume 94.5 fL (83.0-100.0); Mean Platelet Volume 11.3 fL (9.4-12.4); Monocytes # 1.4 K/mcL (0.0-1.3); Neutrophils # 7.1 K/mcL (1.6-8.9); Platelet Count 125 K/mcL (140-400); Red Blood Count 3.43 M/mcL (3.82-4.97); Red Cell Distribution Width 15.6 % (11.5-14.5); Segmented Neutrophils % 52.8 %
[2017-12-15 06:17] LABS: Alanine Aminotransferase 193 Units/L (7-52); Albumin 2.2 g/dL (3.5-5.7); Albumin/Globulin Ratio 0.7 (1.1-2.2); Alkaline Phosphatase 637 Units/L (34-104); Aspartate Amino Transferase 274 Units/L (13-39); BUN/Creatinine Ratio 21 (6-26); Bilirubin,Direct 5.3 mg/dL (0.0-0.2); Bilirubin,Indirect 3.6 mg/dL (0.0-1.2); Bilirubin,Total 8.9 mg/dL (0.3-1.0); Blood Urea Nitrogen 22 mg/dL (8-23); Calcium 7.8 mg/dL (8.6-10.3); Carbon Dioxide 16 mEq/L (23-29); Chloride 111 mEq/L (98-107); Globulin 3.1 g/dL (2.4-3.5); Glucose 289 mg/dL (70-105); Osmolality,Calculated 290 (280-300); Potassium 4.7 mEq/L (3.5-5.1); Sodium 133 mEq/L (136-145); Total Protein 5.3 g/dL (6.4-8.9); eGFR For African Americans > 60 (> 60); eGFR For Non-African Americans 51 (> 60)
[2017-12-15] MEDS: Insulin LISPRO 300 UNITS/3 ML VIAL SQ SCH ×4 (07:34→22:45)
[2017-12-15] MEDS: Pantoprazole 40 MG VIAL IVP SCH (07:34)
--- NOTE | 2017-12-15 10:13 | Internal Med Progress Note ---
Date of Encounter: 12/15/17 Time of Encounter: 10:12 - Assessment and plan (1) Conjugated hyperbilirubinemia Current Visit: Yes Status: Acute Assessment and plan: LFTs basically unchanged -bilirubin 8.9 AST 274 ALT 193. Alkaline phosphatase 637 Gallbladder ultrasound revealed a 1.2 cm gallstone or polyp with possible cholecystitis and mild gallbladder wall thickening measuring 2.8 mm. The common bile duct is within normal limits measuring 4.5 mm MRCP revealed findings suggestive of acute cholecystitis inflammatory stranding and dilatation of the second and third segments of duodenum, mild to moderate hepatic steatosis no finding choledocholithiasis or biliary obstruction- according to GI notes LFTs are elevated out of proportion to cholecystitis findings on imaging-are more consistent with intrahepatic etiology- awaiting hepatic biopsy results (2) Cholecystitis Current Visit: Yes Status: Acute Assessment and plan: Surgery has been consult -Dr. hardy did speak with family today potential cholecystectomy however awaiting results of liver biopsy.-However if symptoms worsen and can be attributed to the gallbladder and gallstones he would consider surgical intervention (3) Diabetes mellitus Current Visit: No Status: Chronic Assessment and plan: Accu-Cheks before meals at bedtime- has had some elevated blood sugars increased to medium sliding scale insulin Qualifiers: Diabetes mellitus type: type 2 Diabetes mellitus vermin exterminator insulin use: with long-term use Diabetes mellitus complication status: without complication Qualified Code(s): E11.9 - Type 2 diabetes mellitus without complications; Z79.4 - terminal clerk (current) use of insulin; Z79.4 - terminal clerk ( current) use of insulin; Z79.4 - assisted (current) use of insulin; Z79.4 - terminal clerk (current) use of insulin (4) HTN (hypertension) Current Visit: Yes Status: Acute Assessment and plan: The patient's creatinine slightly elevated we will hold lisinopril tonight-give hydralazine as needed for elevated blood pressure Qualifiers: Hypertension type: essential hypertension Qualified Code(s): I10 - Essential (primary) hypertension (5) Elevated LFTs Current Visit: Yes Status: Acute Assessment and plan: stable at this time we will continue to monitor (6) Thrombocytopenia Current Visit: Yes Status: Acute Assessment and plan: Holding Lovenox for now-platelets improving (7) DVT prophylaxis Current Visit: Yes Status: Acute Assessment and plan: SCDs due to thrombocytopenia - Time Spent With Patient less than 15 minutes - Subjective Interval history: Patient resting comfortably, no real complaints, states she feels bored. Still waiting for liver biopsy results. - Constitutional Vitals: Temp Pulse Resp BP Pulse Ox 98.1 F 88 16 150/72 97 12/15/17 06:54 12/15/17 06:54 12/15/17 06:54 12/15/17 06:54 12/15/17 06:54 General appearance: Present: A&O X 3 - Head Head exam: Present: atraumatic, normocephalic - Eye Eye exam: Present: PERRL, conjuntiva pink, sclera anicteric Pupils: Present: PERRL - Neck Neck exam general surgery: Present: supple, trachea midline. Absent: lymphadenopathy - Respiratory Respiratory exam: Present: CTAB. Absent: accessory muscle use, rales, rhonchi, wheezes - Cardiovascular Cardiovascular exam: Present: RRR, +S1, +S2. Absent: diastolic murmur, gallop, rubs, systolic murmur - GI/Abdominal GI/Abdominal exam: Present: normal bowel sounds, soft, no peritoneal signs. Absent: distended, tenderness - Extremities Exam Extremities exam: Present: warm, radial pulses palpable and symmetrical. Absent : calf tenderness, cyanotic, pedal edema - Neurological Exam Neurological exam: Present: CN II-XII intact, oriented X3, no focal deficits. Absent: pronater drift, facial droop, speech deficit - Skin Skin exam: Present: dry, intact Internal Medicine: Result - Labs CBC & Chem 7: 12/15/17 05:37 12/15/17 05:37 Labs: Short CBC 12/15/17 Range/Units 05:37 WBC 13.5 H (4.3-11.1) K/mcL Hgb 10.9 L (11.5-15.4) g/dL Hct 32.4 L (35.3-44.9) % Plt Count 125 L (140-400) K/mcL Neutrophils # 7.1 (1.6-8.9) K/mcL BMP 12/15/17 05:37 Sodium 133 L Potassium 4.7 Chloride 111 H Carbon Dioxide 16 L BUN 22 Creatinine 1.06 Glucose 289 H Calcium 7.8 L Liver Function 12/15/17 Range/Units 05:37 Total Bilirubin 8.9 H (0.3-1.0) mg/dL Direct Bilirubin 5.3 H (0.0-0.2) mg/dL AST 274 H (13-39) Units/L ALT 193 H (7-52) Units/L Alkaline Phosphatase 637 H (34-104) Units/L Albumin 2.2 L (3.5-5.7) g/dL - ABG Interpretation ABG results: PT/INR, D-dimer PT 13.5 Seconds (9.4-12.1) H 12/13/17 03:45 Consult Discharge Plan - Plan Referrals: Tiago Scott MD [Primary Care Provider] -
--- NOTE | 2017-12-15 11:33 | General Surgery Progress Note ---
Date of Encounter: 12/15/17 Time of Encounter: 11:26 Subjective Narrative: General Surgery Feeling well; voicing no complaints including no abdominal pain. Tolerating diet, no nausea or vomiting though appetite is diminished. Patient remains afebrile, 98.0; hemodynamically stable with pulse 81, respirations 16, blood pressure 120/78. Lungs: Clear, no abdominal pain with deep inspiration Abdomen: Soft, nontender; no obvious intra-abdominal masses or hepatosplenomegaly Laboratories: White count has increased from 11.9-13.5. Hemoglobin 10.9/ hematocrit 32.4; platelet count 125,000. H&H diminished due to IV fluids Sodium 133 (previously 130); chloride 111; bicarbonate 16. BUN 22, creatinine improved from 1.26 to 1.06. LFTs essentially unchanged - bilirubin 8.9, AST 274, ALT 193, alkaline phosphatase 637 Hepatic biopsy results - pending Impression: Hyperbilirubinemia / jaundice. Hepatic biopsy results pending Cholecystitis/cholelithiasis Diabetes, hypertension, hyperlipidemia Plan: Awaiting hepatic biopsy results Possible cholecystectomy Objective Vital Signs - Last 8 Hours Temp Pulse Resp BP Pulse Ox 12/15/17 11:04 98.0 F 81 16 120/78 95 12/15/17 06:54 98.1 F 88 16 150/72 97 Intake and Output 12/14/17 12/15/17 12/15/17 23:59 07:59 15:59 Intake Total 100 / 100 1100 / 1100 Balance 100 / 100 1100 / 1100 Intake: IV Fluids 100 / 100 1100 / 1100 0.9 % Sodium Chloride 1,000 ML 1000 / 1000 @ 100 mls/hr IVC .Q10H [facility] Rx#: [id number] Zosyn 3.375 GM In 0.9 % Sodium 100 / 100 100 / 100 Chloride (Mini-Bag +) 100 ML @ 25 mls/hr IVPB Q8HR [facility] Rx#: [id number] Other: Weight 82.1 kg Blood Glucose* 257 253 275 Patient Weight 12/15/17 23:59 Weight 82.1 kg - Labs 12/15/17 05:37 12/15/17 05:37 Diabetes panel 12/15/17 Range/Units 05:37 Sodium 133 L (136-145) mEq/L Potassium 4.7 (3.5-5.1) mEq/L Chloride 111 H (98-107) mEq/L Carbon Dioxide 16 L (23-29) mEq/L BUN 22 (8-23) mg/dL Creatinine 1.06 (0.60-1.20) mg/dL Glucose 289 H (70-105) mg/dL Calcium 7.8 L (8.6-10.3) mg/dL AST 274 H (13-39) Units/L ALT 193 H (7-52) Units/L Alkaline Phosphatase 637 H (34-104) Units/L Albumin 2.2 L (3.5-5.7) g/dL Calcium panel 12/15/17 Range/Units 05:37 Calcium 7.8 L (8.6-10.3) mg/dL Albumin 2.2 L (3.5-5.7) g/dL Pituitary panel 12/15/17 Range/Units 05:37 Sodium 133 L (136-145) mEq/L Potassium 4.7 (3.5-5.1) mEq/L Chloride 111 H (98-107) mEq/L Carbon Dioxide 16 L (23-29) mEq/L BUN 22 (8-23) mg/dL Creatinine 1.06 (0.60-1.20) mg/dL Glucose 289 H (70-105) mg/dL Calcium 7.8 L (8.6-10.3) mg/dL Adrenal panel 12/15/17 Range/Units 05:37 Sodium 133 L (136-145) mEq/L Potassium 4.7 (3.5-5.1) mEq/L Chloride 111 H (98-107) mEq/L Carbon Dioxide 16 L (23-29) mEq/L BUN 22 (8-23) mg/dL Creatinine 1.06 (0.60-1.20) mg/dL Glucose 289 H (70-105) mg/dL Calcium 7.8 L (8.6-10.3) mg/dL Total Bilirubin 8.9 H (0.3-1.0) mg/dL AST 274 H (13-39) Units/L ALT 193 H (7-52) Units/L Alkaline Phosphatase 637 H (34-104) Units/L Albumin 2.2 L (3.5-5.7) g/dL Consult Discharge Plan - Plan Referrals: Tiago Scott MD [Primary Care Provider] -
[2017-12-16] MEDS: Piperacillin/Tazobactam 3.375 GM in 0.9 % Sodium Chloride Mini Bag 100 ML IVPB SCH ×3 (00:31→16:51)
[2017-12-16] MEDS: 0.9 % Sodium Chloride 1,000 ML IVC SCH (05:12)
[2017-12-16 05:50] LABS: Basophils # 0.1 K/mcL (0.0-0.2); Basophils % 0.6 %; Eosinophils # 0.2 K/mcL (0.0-0.6); Eosinophils % 1.3 %; Hematocrit 34.1 % (35.3-44.9); Hemoglobin 11.1 g/dL (11.5-15.4); Immature Granulocytes % 0.8 % (0-4); Lymphocytes # 5.8 K/mcL (0.6-4.6); Lymphocytes % 40.2 %; Mean Corpuscular HGB Conc 32.6 g/dL (31.6-35.5); Mean Corpuscular Hemoglobin 31.8 pg (28.0-33.3); Mean Corpuscular Volume 97.7 fL (83.0-100.0); Mean Platelet Volume 10.9 fL (9.4-12.4); Monocytes # 1.2 K/mcL (0.0-1.3); Monocytes % 8.1 %; Platelet Count 153 K/mcL (140-400); Red Blood Count 3.49 M/mcL (3.82-4.97); Red Cell Distribution Width 16.1 % (11.5-14.5)
[2017-12-16 05:53] LABS: INR 1.2; Prothrombin Time 12.6 Seconds (9.4-12.1)
[2017-12-16 05:55] LABS: Activated Partial Thrombo Time 32.6 Seconds (26.0-36.0)
[2017-12-16 06:09] LABS: Alanine Aminotransferase 209 Units/L (7-52); Albumin 2.5 g/dL (3.5-5.7); Albumin/Globulin Ratio 0.8 (1.1-2.2); Alkaline Phosphatase 660 Units/L (34-104); Aspartate Amino Transferase 287 Units/L (13-39); BUN/Creatinine Ratio 20 (6-26); Bilirubin,Direct 5.2 mg/dL (0.0-0.2); Bilirubin,Indirect 3.6 mg/dL (0.0-1.2); Bilirubin,Total 8.8 mg/dL (0.3-1.0); Blood Urea Nitrogen 21 mg/dL (8-23); Calcium 8.1 mg/dL (8.6-10.3); Carbon Dioxide 19 mEq/L (23-29); Chloride 107 mEq/L (98-107); Globulin 3.1 g/dL (2.4-3.5); Glucose 268 mg/dL (70-105); Osmolality,Calculated 286 (280-300); Potassium 4.5 mEq/L (3.5-5.1); Sodium 132 mEq/L (136-145); Total Protein 5.6 g/dL (6.4-8.9); eGFR For African Americans > 60 (> 60); eGFR For Non-African Americans 52 (> 60)
[2017-12-16] MEDS: Insulin LISPRO 300 UNITS/3 ML VIAL SQ SCH ×4 (08:10→21:44)
[2017-12-16] MEDS: Pantoprazole 40 MG VIAL IVP SCH (08:11)
[2017-12-16 08:33] LABS: ANA IgG by ELISA NONE DETECTED (None Detected)
--- NOTE | 2017-12-16 09:49 | Gastroenterology Progress Note ---
<Austin Brooke - Last Filed: 12/16/17 13:27> Date of Encounter: 12/16/17 Time of Encounter: 09:49 - Assessment and plan (1) Conjugated hyperbilirubinemia Current Visit: Yes Status: Acute Assessment and plan: Patient with 8.3 total bilirubin level (direct bilirubin 5.1, indirect bilirubin 3.2) on admission Totol bilirubin remains elevated, LFTs remain elevated but are slowly improving Gallbladder ultrasound revealed a 1.2 cm gallstone or polyp with possible cholecystitis and mild gallbladder wall thickening measuring 3.8 mm. The common bile duct is within normal limits measuring 4.5 mm. MRCP revealed findings suggestive of acute cholecystitis, inflammatory stranding and dilation of the 2nd and 3rd segments of duodenum, mild to moderate hepatic steatosis, and no findings choledocholithiasis or biliary obstruction Case discussed at length with Interventional radiologist Dr. Saundra Farris. Her LFTs are elevated out of proportion to cholecystitis findings on imaging and are more consistent with intra-hepatic etiology. JEFFERY result is negative, unlikely auto-immune hepatitis. Differential includes drug induced hepatitis given recent 5 day course of Cipro for recurrent UTI Liver biopsy results pending Anti-mitochondrial antibody results pending to evaluate for primary biliary cholangitis Continue Ursodiol 500mg PO BID for primary biliary cholangitis treatment until Anti-mitochondrial antibody results are back Patient is stable for outpatient management from a GI perspective Please scheduled follow up in GI clinic within 1-2 weeks - Time Spent With Patient Total time spent is greater than 50% in coordination of care (as documented) at patient's floor/unit and/or counseling patient: - Subjective Interval history: Patient seen and examined resting comfortably in bed. Patient denies any new c/ o. Still waiting for liver biopsy results, case discussed with histology, will likely have results this afternoon. Patient is scheduled for cholecystectomy in AM. - Constitutional Vitals: Temp Pulse Resp BP Pulse Ox 98.7 F 79 18 142/68 98 12/16/17 07:04 12/16/17 07:04 12/16/17 07:04 12/16/17 07:04 12/16/17 07:04 General appearance: Present: cooperative, A&O X 3, no acute distress, answers questions appropriately - Head Head exam: Present: atraumatic, normocephalic - Eye Eye exam: Present: normal appearance, sclera anicteric - Neck Neck exam general surgery: Present: normal inspection, trachea midline - Respiratory Respiratory exam: Present: CTAB - Cardiovascular Cardiovascular exam: Present: RRR, +S1, +S2 - GI/Abdominal GI/Abdominal exam: Present: normal bowel sounds, soft, tenderness (RUQ), no peritoneal signs - Rectal Rectal exam: Present: deferred - Extremities Exam Extremities exam: Present: warm - Neurological Exam Neurological exam: Present: no focal deficits - Psychiatric Psychiatric exam: Present: normal affect, normal mood - Skin Skin exam: Present: dry, intact, normal color, warm Results - Labs CBC & Chem 7: 12/16/17 05:31 12/16/17 05:31 Labs: Last Result Calcium 8.1 mg/dL (8.6-10.3) L 12/16/17 05:31 Triglycerides 99 mg/dL (< 150) 12/11/17 06:12 Entire Visit Hgb 11.1 g/dL (11.5-15.4) L 12/16/17 05:31 Hct 34.1 % (35.3-44.9) L 12/16/17 05:31 PT 12.6 Seconds (9.4-12.1) H 12/16/17 05:31 Total Bilirubin 8.8 mg/dL (0.3-1.0) H 12/16/17 05:31 AST 287 Units/L (13-39) H 12/16/17 05:31 ALT 209 Units/L (7-52) H 12/16/17 05:31 Amylase 43 Units/L (29-103) 12/10/17 17:10 Lipase 24 Units/L (11-82) 12/10/17 17:10 - ABG ABG results: PT/INR, D-dimer PT 12.6 Seconds (9.4-12.1) H 12/16/17 05:31 - VTE Documentation of Mechanical Device: Intermittent pneumatic compression device Consult Discharge Plan - Plan Referrals: Tiago Scott MD [Primary Care Provider] - <Josephine Garza - Last Filed: 12/16/17 20:43> Date of Encounter: 12/16/17 Time of Encounter: 15:00 - Time Spent With Patient Total time spent is greater than 50% in coordination of care (as documented) at patient's floor/unit and/or counseling patient: - Constitutional Vitals: Temp Pulse Resp BP Pulse Ox 98.6 F 91 16 158/72 96 12/16/17 19:17 12/16/17 19:17 12/16/17 19:17 12/16/17 19:17 12/16/17 19:17 Results - Labs CBC & Chem 7: 12/16/17 05:31 12/16/17 05:31 Labs: Last Result Calcium 8.1 mg/dL (8.6-10.3) L 12/16/17 05:31 Triglycerides 99 mg/dL (< 150) 12/11/17 06:12 Entire Visit Hgb 11.1 g/dL (11.5-15.4) L 12/16/17 05:31 Hct 34.1 % (35.3-44.9) L 12/16/17 05:31 PT 12.6 Seconds (9.4-12.1) H 12/16/17 05:31 Total Bilirubin 8.8 mg/dL (0.3-1.0) H 12/16/17 05:31 AST 287 Units/L (13-39) H 12/16/17 05:31 ALT 209 Units/L (7-52) H 12/16/17 05:31 Amylase 43 Units/L (29-103) 12/10/17 17:10 Lipase 24 Units/L (11-82) 12/10/17 17:10 - ABG ABG results: PT/INR, D-dimer PT 12.6 Seconds (9.4-12.1) H 12/16/17 05:31 - Attending Attestation I examined this patient and my medical decision-making was reviewed with the Resident Physician. I agree with the documented findings, disposition and treatment plan as described except to the extent set forth below.
--- NOTE | 2017-12-16 12:33 | General Surgery Progress Note ---
Date of Encounter: 12/16/17 Time of Encounter: 11:50 Subjective Patient reports: no new complaints Narrative: General Surgery - Patient with no new complaints; remains afebrile, currently 98.0, pulse 79-94 ; respiratory rate 18, blood pressure 157/68. SPO2 on room air 98% Patient remains jaundiced Lungs: Clear; no obvious abdominal pain with deep inspiration Abdomen: Soft, without tenderness or organomegaly Extremities: 2+ pitting edema consistent with IV fluids and mild fluid retention/third spacing Pathology: I was able to obtain a preliminary report indicating the presence of chronic hepatitis; the degree of which cannot be determined without completion of the entire specimen. Specific stains are still pending. Laboratories: Leukocytosis continues to worsen; 14.4 with 5.8% lymphocytes H&H stable at 11.1 and 34.1; platelet count 153,000 PT/INR 12.6 and 1.2 respectively Electrolytes notable for a sodium of 132, potassium 4.5, bicarbonate 19; BUN 21, creatinine 1.05 Total bilirubin 8.8 (yesterday 8.9) direct 5.2; AST has increased to 87, ALT has increased to 209, alkaline phosphatase increased to 660 Impression: 72-year-old female with persisting hyperbilirubinemia, ranging 8.8- 9.2 in the last few days. 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 Patient now demonstrating increasing leukocytosis with no fever or recurrent abdominal pain, however, these findings are concerning. I have recommended surgery. The patient has no history of previous transabdominal surgery a reasonable candidate for laparoscopic cholecystectomy. The patient understands that an open cholecystectomy may become necessary. Risks include hemorrhage, infection, intra-abdominal abscess, bile leak, persistent jaundice, injury to adjacent ducts, vessels, organs, or bowel; postcholecystectomy diarrhea, pneumonia, and cardiac risks such as dysrhythmia and/or NE have been discussed. The patient and her expressed understanding. They are willing to proceed with surgery. This is scheduled tomorrow AM. Consent has been obtained. Objective Vital Signs - Last 8 Hours Temp Pulse Resp BP Pulse Ox 12/16/17 12:17 98.0 F 94 18 157/68 98 12/16/17 07:04 98.7 F 79 18 142/68 98 Intake and Output 12/15/17 12/16/17 12/16/17 23:59 07:59 15:59 Intake Total 100 / 100 1100 / 1100 240 / 240 Balance 100 / 100 1100 / 1100 240 / 240 Intake: IV Fluids 100 / 100 1100 / 1100 0.9 % Sodium Chloride 1,000 ML 1000 / 1000 @ 100 mls/hr IVC .Q10H [facility] Rx#: [id number] Zosyn 3.375 GM In 0.9 % Sodium 100 / 100 100 / 100 Chloride (Mini-Bag +) 100 ML @ 25 mls/hr IVPB Q8HR [facility] Rx#: [id number] Oral 240 / 240 Other: Meal Breakfast Percent of Meal Consumed 100% Weight 82.69 kg Blood Glucose* 297 262 Patient Weight 12/16/17 23:59 Weight 82.69 kg - Labs 12/16/17 05:31 12/16/17 05:31 Diabetes panel 12/16/17 Range/Units 05:31 Sodium 132 L (136-145) mEq/L Potassium 4.5 (3.5-5.1) mEq/L Chloride 107 (98-107) mEq/L Carbon Dioxide 19 L (23-29) mEq/L BUN 21 (8-23) mg/dL Creatinine 1.05 (0.60-1.20) mg/dL Glucose 268 H (70-105) mg/dL Calcium 8.1 L (8.6-10.3) mg/dL AST 287 H (13-39) Units/L ALT 209 H (7-52) Units/L Alkaline Phosphatase 660 H (34-104) Units/L Albumin 2.5 L (3.5-5.7) g/dL Thyroid panel 12/11/17 Range/Units 14:40 Thyroid Peroxidase Ab <0.3 (0.0-9.0) IU/mL Calcium panel 12/16/17 Range/Units 05:31 Calcium 8.1 L (8.6-10.3) mg/dL Albumin 2.5 L (3.5-5.7) g/dL Pituitary panel 12/16/17 Range/Units 05:31 Sodium 132 L (136-145) mEq/L Potassium 4.5 (3.5-5.1) mEq/L Chloride 107 (98-107) mEq/L Carbon Dioxide 19 L (23-29) mEq/L BUN 21 (8-23) mg/dL Creatinine 1.05 (0.60-1.20) mg/dL Glucose 268 H (70-105) mg/dL Calcium 8.1 L (8.6-10.3) mg/dL Adrenal panel 12/16/17 Range/Units 05:31 Sodium 132 L (136-145) mEq/L Potassium 4.5 (3.5-5.1) mEq/L Chloride 107 (98-107) mEq/L Carbon Dioxide 19 L (23-29) mEq/L BUN 21 (8-23) mg/dL Creatinine 1.05 (0.60-1.20) mg/dL Glucose 268 H (70-105) mg/dL Calcium 8.1 L (8.6-10.3) mg/dL Total Bilirubin 8.8 H (0.3-1.0) mg/dL AST 287 H (13-39) Units/L ALT 209 H (7-52) Units/L Alkaline Phosphatase 660 H (34-104) Units/L Albumin 2.5 L (3.5-5.7) g/dL - VTE Documentation of Mechanical Device: Intermittent pneumatic compression device Consult Discharge Plan - Plan Referrals: Tiago Scott MD [Primary Care Provider] -
--- NOTE | 2017-12-16 12:56 | General Surgery Progress Note ---
Date of Encounter: 12/16/17 Objective Vital Signs - Last 8 Hours Temp Pulse Resp BP Pulse Ox 12/16/17 12:17 98.0 F 94 18 157/68 98 12/16/17 07:04 98.7 F 79 18 142/68 98 Intake and Output 12/15/17 12/16/17 12/16/17 23:59 07:59 15:59 Intake Total 100 / 100 1100 / 1100 240 / 240 Balance 100 / 100 1100 / 1100 240 / 240 Intake: IV Fluids 100 / 100 1100 / 1100 0.9 % Sodium Chloride 1,000 ML 1000 / 1000 @ 100 mls/hr IVC .Q10H [facility] Rx#: [id number] Zosyn 3.375 GM In 0.9 % Sodium 100 / 100 100 / 100 Chloride (Mini-Bag +) 100 ML @ 25 mls/hr IVPB Q8HR [facility]IE Rx#: [id number] Oral 240 / 240 Other: Meal Breakfast Percent of Meal Consumed 100% Weight 82.69 kg Blood Glucose* 297 262 Patient Weight 12/16/17 23:59 Weight 82.69 kg - Labs 12/16/17 05:31 12/16/17 05:31 Diabetes panel 12/16/17 Range/Units 05:31 Sodium 132 L (136-145) mEq/L Potassium 4.5 (3.5-5.1) mEq/L Chloride 107 (98-107) mEq/L Carbon Dioxide 19 L (23-29) mEq/L BUN 21 (8-23) mg/dL Creatinine 1.05 (0.60-1.20) mg/dL Glucose 268 H (70-105) mg/dL Calcium 8.1 L (8.6-10.3) mg/dL AST 287 H (13-39) Units/L ALT 209 H (7-52) Units/L Alkaline Phosphatase 660 H (34-104) Units/L Albumin 2.5 L (3.5-5.7) g/dL Thyroid panel 12/11/17 Range/Units 14:40 Thyroid Peroxidase Ab <0.3 (0.0-9.0) IU/mL Calcium panel 12/16/17 Range/Units 05:31 Calcium 8.1 L (8.6-10.3) mg/dL Albumin 2.5 L (3.5-5.7) g/dL Pituitary panel 12/16/17 Range/Units 05:31 Sodium 132 L (136-145) mEq/L Potassium 4.5 (3.5-5.1) mEq/L Chloride 107 (98-107) mEq/L Carbon Dioxide 19 L (23-29) mEq/L BUN 21 (8-23) mg/dL Creatinine 1.05 (0.60-1.20) mg/dL Glucose 268 H (70-105) mg/dL Calcium 8.1 L (8.6-10.3) mg/dL Adrenal panel 12/16/17 Range/Units 05:31 Sodium 132 L (136-145) mEq/L Potassium 4.5 (3.5-5.1) mEq/L Chloride 107 (98-107) mEq/L Carbon Dioxide 19 L (23-29) mEq/L BUN 21 (8-23) mg/dL Creatinine 1.05 (0.60-1.20) mg/dL Glucose 268 H (70-105) mg/dL Calcium 8.1 L (8.6-10.3) mg/dL Total Bilirubin 8.8 H (0.3-1.0) mg/dL AST 287 H (13-39) Units/L ALT 209 H (7-52) Units/L Alkaline Phosphatase 660 H (34-104) Units/L Albumin 2.5 L (3.5-5.7) g/dL - VTE Documentation of Mechanical Device: Intermittent pneumatic compression device Consult Discharge Plan - Plan Referrals: Tiago Scott MD [Primary Care Provider] -
--- NOTE | 2017-12-16 13:08 | Internal Med Progress Note ---
Date of Encounter: 12/16/17 Time of Encounter: 13:03 - Assessment and plan (1) Conjugated hyperbilirubinemia Current Visit: Yes Status: Acute Assessment and plan: 1 total bili 8.8 yesterday 0.9 direct is 5.2 AST has increased 87 ALC increased to 9 alkaline phosphatase increased to 600 she continues to be jaundiced. Gallbladder ultrasound revealed a 1.2 cm gallstone or polyp with possible cholecystitis and mild gallbladder wall thickening measuring 2.8 mm. The common bile duct is within normal limits measuring 4.5 mm MRCP revealed findings suggestive of acute cholecystitis inflammatory stranding and dilatation of the second and third segments of duodenum, mild to moderate hepatic steatosis no finding choledocholithiasis or biliary obstruction- according to GI notes LFTs are elevated out of proportion to cholecystitis findings on imaging-are more consistent with intrahepatic etiology- awaiting hepatic biopsy results-according to surgery notes Dr. hardy was able to obtain a preliminary report indicating the presence of chronic hepatitis however they agree cannot be determined without completion of the entire specimen. Appears to be combined chronic hepatitis with acute cholecystitis related to cholelithiasis. Dr. hardy did speak with the family concerning surgery. They are willing to proceed and surgery scheduled for tomorrow morning. She will be nothing by mouth after midnight (2) Cholecystitis Current Visit: Yes Status: Acute Assessment and plan: Surgery has been consult -according to surgery notes Dr. hardy did speak with pathology preliminary report indicates the presence of chronic hepatitis however degree of which cannot be determined without completion of the entire specimen. It appears to be combined chronic hepatitis with acute cholecystitis bili to cholelithiasis. Patient will undergo surgery for cholecystectomy in the a.m. per surgery. She will be nothing by mouth after midnight (3) Diabetes mellitus Current Visit: No Status: Chronic Assessment and plan: Accu-Cheks before meals at bedtime- has had some elevated blood sugars increased to medium sliding scale insulin Qualifiers: Diabetes mellitus type: type 2 Diabetes mellitus long term care phlebotomist insulin use: with long term care phlebotomist use Diabetes mellitus complication status: without complication Qualified Code(s): E11.9 - Type 2 diabetes mellitus without complications; Z79.4 - [facility] (current) use of insulin; Z79.4 - terminal block assembler ( current) use of insulin; Z79.4 - terminal block assembler (current) use of insulin; Z79.4 - terminal block assembler (current) use of insulin (4) HTN (hypertension) Current Visit: Yes Status: Acute Assessment and plan: The patient's creatinine improved restart lisinopril -give hydralazine as needed for elevated blood pressure Qualifiers: Hypertension type: essential hypertension Qualified Code(s): I10 - Essential (primary) hypertension (5) Elevated LFTs Current Visit: Yes Status: Acute Assessment and plan: Appears to be combined chronic hepatitis with acute cholecystitis related to cholelithiasis we will continue to monitor-patient will undergo surgery for cholecystectomy in a.m. (6) Thrombocytopenia Current Visit: Yes Status: Acute Assessment and plan: Holding Lovenox -platelets have returned to normal we will continue to hold Lovenox (7) Leukocytosis Current Visit: Yes Status: Acute Assessment and plan: Patient does have a jump in white count slowly rising with past few days 11.9, 13.5, 14.4-she is afebrile no recurrent abdominal pain. We will obtain a urinalysis, if white count continues to rise we will consult ID Qualifiers: Leukocytosis type: unspecified Qualified Code(s): D72.829 - Elevated white blood cell count, unspecified (8) Elevated serum creatinine Current Visit: Yes Status: Acute Assessment and plan: Currently bumped up to 1.26 we did hold lisinopril as well as NSAIDs renal dose antibiotics did give IV fluids. She has returned back to baseline however she does have pitting edema consistent with IV fluids mild fluid retention. Encourage patient to ambulate (9) DVT prophylaxis Current Visit: Yes Status: Acute Assessment and plan: SCDs due to thrombocytopenia - Time Spent With Patient less than 15 minutes - Subjective Interval history: Patient resting comfortably, no real complaints, states she feels bored. Still waiting for liver biopsy results. - Constitutional Vitals: Temp Pulse Resp BP Pulse Ox 98.0 F 94 18 157/68 98 12/16/17 12:17 12/16/17 12:17 12/16/17 12:17 12/16/17 12:17 12/16/17 12:17 General appearance: Present: A&O X 3 - Head Head exam: Present: atraumatic, normocephalic - Eye Eye exam: Present: PERRL, conjuntiva pink, sclera anicteric Pupils: Present: PERRL - Neck Neck exam general surgery: Present: supple, trachea midline. Absent: lymphadenopathy - Respiratory Respiratory exam: Present: CTAB. Absent: accessory muscle use, rales, rhonchi, wheezes - Cardiovascular Cardiovascular exam: Present: RRR, +S1, +S2. Absent: diastolic murmur, gallop, rubs, systolic murmur - GI/Abdominal GI/Abdominal exam: Present: normal bowel sounds, soft, no peritoneal signs. Absent: distended, tenderness - Extremities Exam Extremities exam: Present: warm, radial pulses palpable and symmetrical. Absent : calf tenderness, cyanotic, pedal edema - Neurological Exam Neurological exam: Present: CN II-XII intact, oriented X3, no focal deficits. Absent: pronater drift, facial droop, speech deficit - Skin Skin exam: Present: dry, intact Internal Medicine: Result - Labs CBC & Chem 7: 12/16/17 05:31 12/16/17 05:31 Labs: Short CBC 12/16/17 Range/Units 05:31 WBC 14.4 H (4.3-11.1) K/mcL Hgb 11.1 L (11.5-15.4) g/dL Hct 34.1 L (35.3-44.9) % Plt Count 153 (140-400) K/mcL Neutrophils # 7.0 (1.6-8.9) K/mcL BMP 12/16/17 05:31 Sodium 132 L Potassium 4.5 Chloride 107 Carbon Dioxide 19 L BUN 21 Creatinine 1.05 Glucose 268 H Calcium 8.1 L Liver Function 12/16/17 Range/Units 05:31 Total Bilirubin 8.8 H (0.3-1.0) mg/dL Direct Bilirubin 5.2 H (0.0-0.2) mg/dL AST 287 H (13-39) Units/L ALT 209 H (7-52) Units/L Alkaline Phosphatase 660 H (34-104) Units/L Albumin 2.5 L (3.5-5.7) g/dL - ABG Interpretation ABG results: PT/INR, D-dimer PT 12.6 Seconds (9.4-12.1) H 12/16/17 05:31 - VTE Documentation of Mechanical Device: Intermittent pneumatic compression device Consult Discharge Plan - Plan Referrals: Tiago Scott MD [Primary Care Provider] -
--- NOTE | 2017-12-16 19:57 | Anesthesia Evaluation PreOp ---
Date of Encounter: 12/16/17 Time of Encounter: 21:00 - Past History Planned Operation: LAP. 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 Significant HX Other Medical History: Diabetes Type II, Other (Chronic hepatitis with acute obstructive hepatitis, Anemia, Thrombocytopenia, Elevated INR.) Anesthesia History: No Prior Anesthetic Complications, Past Anesthesia (Hyst, tonsils, patti ankles) Alcohol Use: none Drug use: none Medications and Allergies Aspirin Enteric Coated [Aspirin EC] 81 mg PO DAILY 12/10/17 [History] Atorvastatin [Lipitor] 10 mg PO HS 12/10/17 [History] Calcium Carbonate [Calcium] 600 mg PO DAILY 12/10/17 [History] Insulin NPH Hum/Reg Insulin Hm [Novolin 70-30 100 Unit/ml Vial] 26 unit SQ QPM 12/10/17 [History] Insulin NPH Hum/Reg Insulin Hm [Novolin 70-30 100 Unit/ml Vial] 46 unit SQ QAM 12/10/17 [History] Lisinopril [Zestril] 10 mg PO DAILY 12/10/17 [History] Vit A/C/E AC/Znox/Cupric Oxide [Eye Vitamin-Minerals Tablet] 1 each PO DAILY [History] glipiZIDE [Glucotrol] 5 mg PO BID 12/10/17 [History] 3 Allergy/AdvReac Type Severity Reaction Status Date / Time No Known Allergies Allergy Verified 12/10/17 16:30 - Meds/Allergy Pre-op Review Medications Reviewed: Yes Allergies Reviewed: Yes Beta Blockers on Current Med List: No Anesthesia Results - Labs 12/16/17 05:31 12/16/17 05:31 Laboratory Last Values WBC 14.4 K/mcL (4.3-11.1) H 12/16/17 05:31 RBC 3.49 M/mcL (3.82-4.97) L 12/16/17 05:31 Hgb 11.1 g/dL (11.5-15.4) L 12/16/17 05:31 Hct 34.1 % (35.3-44.9) L 12/16/17 05:31 MCV 97.7 fL (83.0-100.0) 12/16/17 05:31 MCH 31.8 pg (28.0-33.3) 12/16/17 05:31 MCHC 32.6 g/dL (31.6-35.5) 12/16/17 05:31 RDW 16.1 % (11.5-14.5) H 12/16/17 05:31 Plt Count 153 K/mcL (140-400) 12/16/17 05:31 MPV 10.9 fL (9.4-12.4) 12/16/17 05:31 Immature Gran % 0.8 % (0-4) 12/16/17 05:31 Seg Neutrophils % 49.0 % 12/16/17 05:31 Lymphocytes % 40.2 % 12/16/17 05:31 Monocytes % 8.1 % 12/16/17 05:31 Eosinophils % 1.3 % 12/16/17 05:31 Basophils % 0.6 % 12/16/17 05:31 Neutrophils # 7.0 K/mcL (1.6-8.9) 12/16/17 05:31 Lymphocytes # 5.8 K/mcL (0.6-4.6) H 12/16/17 05:31 Monocytes # 1.2 K/mcL (0.0-1.3) 12/16/17 05:31 Eosinophils # 0.2 K/mcL (0.0-0.6) 12/16/17 05:31 Basophils # 0.1 K/mcL (0.0-0.2) 12/16/17 05:31 Nucleated RBCs/100 WBC 0.2 /100 WBC (0) H 12/14/17 05:29 PT 12.6 Seconds (9.4-12.1) H 12/16/17 05:31 INR 1.2 12/16/17 05:31 APTT 32.6 Seconds (26.0-36.0) 12/16/17 05:31 Sodium 132 mEq/L (136-145) L 12/16/17 05:31 Potassium 4.5 mEq/L (3.5-5.1) 12/16/17 05:31 Chloride 107 mEq/L (98-107) 12/16/17 05:31 Carbon Dioxide 19 mEq/L (23-29) L 12/16/17 05:31 BUN 21 mg/dL (8-23) 12/16/17 05:31 Creatinine 1.05 mg/dL (0.60-1.20) 12/16/17 05:31 Est GFR ( Amer) > 60 (> 60) 12/16/17 05:31 Est GFR (Non-Af Amer) 52 (> 60) L 12/16/17 05:31 BUN/Creatinine Ratio 20 (6-26) 12/16/17 05:31 Glucose 268 mg/dL (70-105) H 12/16/17 05:31 POC Glucose 354 (58-89) H 12/16/17 12:18 Calculated Osmolality 286 (280-300) 12/16/17 05:31 Calcium 8.1 mg/dL (8.6-10.3) L 12/16/17 05:31 Magnesium 2.1 mg/dL (1.6-2.6) 12/11/17 06:12 Total Bilirubin 8.8 mg/dL (0.3-1.0) H 12/16/17 05:31 Direct Bilirubin 5.2 mg/dL (0.0-0.2) H 12/16/17 05:31 Indirect Bilirubin 3.6 mg/dL (0.0-1.2) H 12/16/17 05:31 AST 287 Units/L (13-39) H 12/16/17 05:31 ALT 209 Units/L (7-52) H 12/16/17 05:31 Alkaline Phosphatase 660 Units/L (34-104) H 12/16/17 05:31 Serum Total Protein 5.6 g/dL (6.4-8.9) L 12/16/17 05:31 Albumin 2.5 g/dL (3.5-5.7) L 12/16/17 05:31 Globulin 3.1 g/dL (2.4-3.5) 12/16/17 05:31 Albumin/Globulin Ratio 0.8 (1.1-2.2) L 12/16/17 05:31 Triglycerides 99 mg/dL (< 150) 12/11/17 06:12 Cholesterol 274 mg/dL (< 200) H 12/11/17 06:12 LDL Cholesterol, Calc 250 mg/dL (0-99) H 12/11/17 06:12 VLDL Cholesterol, Calc 20 mg/dL (< 31) 12/11/17 06:12 HDL Cholesterol 4 mg/dL (40-59) L 12/11/17 06:12 Cholesterol/HDL Ratio 68.5 (0-4.9) H 12/11/17 06:12 Amylase 43 Units/L (29-103) 12/10/17 17:10 Lipase 24 Units/L (11-82) 12/10/17 17:10 Ur Specimen Adequacy See below A 12/10/17 19:52 Urine Color [place] (Yellow) A 12/10/17 19:52 Urine Clarity Clear (Clear) 12/10/17 19:52 Urine Microscopic RBC 5-15 per hpf (0-3) H 12/10/17 19:52 Urine Microscopic WBC 15-30 per hpf (0-3) H 12/10/17 19:52 Ur Squamous Epith Cells Many per lpf (None-Few) H 12/10/17 19:52 Urine Bacteria Moderate per hpf (None-Few) H 12/10/17 19:52 Hyaline Casts Moderate per lpf (None-Few) H 12/10/17 19:52 Urine Yeast Moderate per hpf (None Seen) H 12/10/17 19:52 Ur Culture Indicated? NO (NO) 12/10/17 19:52 JEFFERY Screen NONE DETECTED (None Detected) 12/11/17 14:40 Thyroid Peroxidase Ab <0.3 IU/mL (0.0-9.0) 12/11/17 14:40 Hepatitis A IgM Ab Nonreactive (Nonreactive) 12/11/17 14:40 Hep Bs Antigen Nonreactive (Nonreactive) 12/11/17 14:40 Hep B Core IgM Ab Nonreactive (Nonreactive) 12/11/17 14:40 Hepatitis C Ab Screen Nonreactive (Nonreactive) 12/11/17 14:40 - Imaging EKG: report reviewed (SINUS RHYTHM WITH OCCASIONAL VENTRICULAR PREMATURE COMPLEXES) Anesthesia Exam Vital Signs/O2 Sat/Glucose, Most Recent Temp Pulse Resp BP Pulse Ox 98.6 F 91 16 158/72 96 12/16/17 19:17 18 19:17 12/16/17 19:17 12/16/17 19:17 12/16/17 19:17 Blood Glucose* 247 Weight: 83 Kg BMI 32 NPO (# of Hours): Instructed NPO after MN - HEENT Mallampati: II Teeth: Normal - Cardiac Rhythm: Regular - Pulmonary Breath Sounds: bilateral Rhonchi Respiratory Effort: Labored Anesthesia Assess/Plan ASA Score: 4 Modified Ayaz Scale for Level of Consciousness: Cooperative, oriented, and tranquil Anesthetic Plan: General Autologous Blood: Yes (Possible need for FFP, or Platelets. TS ordered) Monitoring Plan: Standard Monitors Recovery Plan: PACU Anes Supervising Prov Stmt: I have participated in the evaluation of this patient. Patient informed and consented. Risks, benefits, and alternatives discussed. Patient wishes to proceed.
[2017-12-17] MEDS: Piperacillin/Tazobactam 3.375 GM in 0.9 % Sodium Chloride Mini Bag 100 ML IVPB SCH ×3 (01:11→17:55)
[2017-12-17 05:01] LABS: Basophils # 0.1 K/mcL (0.0-0.2); Basophils % 0.4 %; Eosinophils # 0.2 K/mcL (0.0-0.6); Eosinophils % 1.6 %; Hematocrit 30.6 % (35.3-44.9); Hemoglobin 10.1 g/dL (11.5-15.4); Immature Granulocytes % 1.2 % (0-4); Lymphocytes # 6.3 K/mcL (0.6-4.6); Lymphocytes % 43.3 %; Mean Corpuscular Hemoglobin 32.2 pg (28.0-33.3); Mean Corpuscular Volume 97.5 fL (83.0-100.0); Mean Platelet Volume 10.8 fL (9.4-12.4); Monocytes # 1.2 K/mcL (0.0-1.3); Monocytes % 7.9 %; Neutrophils # 6.6 K/mcL (1.6-8.9); Platelet Count 128 K/mcL (140-400); Red Blood Count 3.14 M/mcL (3.82-4.97); Red Cell Distribution Width 16.4 % (11.5-14.5); Segmented Neutrophils % 45.6 %
[2017-12-17 05:24] LABS: Albumin 2.3 g/dL (3.5-5.7); Albumin/Globulin Ratio 0.7 (1.1-2.2); Bilirubin,Direct 4.9 mg/dL (0.0-0.2); Bilirubin,Indirect 3.2 mg/dL (0.0-1.2); Bilirubin,Total 8.1 mg/dL (0.3-1.0); Globulin 3.3 g/dL (2.4-3.5); Potassium 4.7 mEq/L (3.5-5.1); Total Protein 5.6 g/dL (6.4-8.9)
[2017-12-17] MEDS: Insulin LISPRO 300 UNITS/3 ML VIAL SQ SCH ×4 (08:38→20:57)
[2017-12-17] MEDS: Pantoprazole 40 MG VIAL IVP SCH (08:46)
[2017-12-17] MEDS ORDERED: *HR* EPINEPHrine 30 MG/30 ML MDV ONE (11:34)
[2017-12-17] MEDS ORDERED: Isovue-300 50 ML VIAL IVP ONE (11:45)
[2017-12-17] MEDS ORDERED: Ondansetron 4 MG/2 ML VIAL IVP ONE (12:57)
[2017-12-17] MEDS ORDERED: *HR* HYDROcodone/Acet 7.5/325 mg TABLET PO PRN (12:57)
[2017-12-17] MEDS ORDERED: Neostigmine Methylsulfate 3 MG/3 ML SYRINGE ONE (13:14)
[2017-12-17] MEDS ORDERED: *HR* Midazolam HCl 2 MG/2 ML VIAL ONE (13:14)
[2017-12-17] MEDS ORDERED: *HR* Propofol 200 MG/20 ML VIAL IVP ONE (13:14)
[2017-12-17] MEDS ORDERED: *HR* FentaNYL (PF) 100 MCG/2 ML VIAL ONE (13:14)
[2017-12-17] MEDS ORDERED: Ringers Solution, Lactated 500 ML IVC ONE (13:46)
--- NOTE | 2017-12-17 13:50 | Operative Note ---
Date of procedure: 12/17/17 Pre-op diagnosis: acute cholecystitis, cholelithiasis Post-op diagnosis: same Procedure: laparoscopic cholecystectomy Complications: none apparent Anesthesia: GETA Local Anesthetics: 0.25% Sensorcaine HCL with Epinephrine 1:200,000 SubQ (cc) ( 30 mL (mixture 27 mL 0.25% Bupivicaine with 3 ml 1 mg/mL Epinephrine)) Surgeon: Mian Nieto Was there an graduate assistant present: No Estimated blood loss (cc): 200 (1100mL ascites) IV fluids (cc): 1,000 Specimen: gallbladder Condition: stable Disposition: PACU Procedure in Detail: The patient was brought to the operating room where she was placed supine on the operating room table. The patient was appropriately identified as to person and procedure. The accuracy of this information was confirmed by the patient and the procedure team. The patient was then intubated and anesthetized under the supervision of Dr. Keren Ramirez. The abdomen was prepped and draped in usual sterile fashion. Several milliliters of 0.25% bupivacaine with epinephrine (a mixture of 27 mL 0.25% bupivacaine with 3 mL 1 mg per mL epinephrine) was infiltrated into the infraumbilical skin. A small transverse incision was made. Dissection was extended to the fascia. Additional bupivacaine with epinephrine was infiltrated, the fascia was grasped and elevated. A small incision was made followed by placement of an 11 mm Xcel. The rigid laparoscope was placed within the obturator to visualize passage through the layers of the anterior abdominal wall. When the abdominal cavity was accessed, the obturator was replaced by the rigid laparoscope, the abdomen was insufflated with gaseous carbon dioxide. There was no obvious visible injury from establishing the port. The liver was nodular/subglottic and copious ascites was evident. Under direct visualization 3 additional ports were placed along the right costal margin. Each site was infiltrated with the bupivacaine with epinephrine solution. Approximately 1100 mL of ascites was removed. The gallbladder was grasped and retracted. Adhesions of omentum to the gallbladder required sharp dissection using the Ethicon harmonic dameon. The hepatoduodenal ligament was dissected, the cystic duct was exposed. The cystic duct notably small caliber. The cystic duct was clipped twice distally and once near the infundibulum and gallbladder. Cystic duct was divided. The cystic artery was identified, skeletonized, clipped, and divided. The gallbladder was dissected from the liver bed using Ethicon harmonic dameon. Once from the liver bed, the gallbladder was placed in an endoscopic pouch and extracted through the infraumbilical opening. There were no palpable stones within the gallbladder. The specimen was recovered and sent to pathology. There was some blood that had accumulated in the gallbladder fossa. This was evacuated with an endoscopic suction device. Due to the presence of cirrhosis, I opted to apply Hoang to the gallbladder fossa. I also placed a 7 mm Yousif-Rosado drain in the gallbladder fossa exiting the drain through the 5 mm port in the anterior axillary line. The drain was positioned and secured to the anterior abdominal wall with 3-0 silk. The liver bed was inspected for adequate hemostasis before removing the instrumentation and evacuating the pneumoperitoneum. The fascia of the infraumbilical opening was closed with interrupted [id number] 0 Vicryl using S retractors. Additional bupivacaine with epinephrine was infiltrated into this fascia. The ports were closed with subcuticular 4-0 Vicryl. The incisions were sealed with Dermabond dermal adhesive. The patient was taken to recovery in stable condition. Needle , sponge, and instrument counts were correct at the close of the case. Approximately 30 mL's of the 0.25% bupivacaine mixed with epinephrine was used during this procedure.
[2017-12-17 18:05] LABS: Bilirubin,Urine Large (Negative); Blood,Urine Moderate (Negative); Clarity,Urine Cloudy (Clear); Color,Urine Orange (Yellow); Glucose,Urine (UA) 500 mg/dL (Normal); Ketones,Urine 15 mg/dL (Negative); Leukocyte Esterase,Urine Moderate (Negative); Nitrite,Urine Positive (Negative); PH,Urine 5.5 pH Units (5.0-8.0); Protein,Urine 30 mg/dL (Neg-Trace); Specific Gravity,Urine > 1.030 (1.010-1.025); Urobilinogen,Urine Normal (Normal)
[2017-12-17 18:06] LABS: Bacteria,Urine None Seen per hpf (None-Few); Squamous Epithelial Cell,Urine Many per lpf (None-Few); WBC,Urine 15-30 per hpf (0-3)
--- NOTE | 2017-12-17 18:09 | Internal Med Progress Note ---
Date of Encounter: 12/17/17 Time of Encounter: 18:05 - Assessment and plan (1) Cholecystitis Current Visit: Yes Status: Acute Assessment and plan: Postop day 0 laparoscopic cholecystectomy (2) Conjugated hyperbilirubinemia Current Visit: Yes Status: Acute Assessment and plan: total bili 8.8, 9.1 direct, [id number], now 254, ALt now 185, alkaline phosphatase trending down slowly currently 598. She continues to be jaundiced. Gallbladder ultrasound revealed a 1.2 cm gallstone or polyp with possible cholecystitis and mild gallbladder wall thickening measuring 2.8 mm. The common bile duct was within normal limits measuring 4.5 mm, MRCP revealed findings suggestive of acute cholecystitis with inflammatory stranding and dilatation of the second and third segments of duodenum, mild to moderate hepatic steatosis with no finding choledocholithiasis or biliary obstruction according to GI notes. LFTs were elevated out of proportion to cholecystitis findings on imaging and more consistent with intrahepatic etiology. Hepatic biopsy results reviewed with findings of chronic hepatitis pattern of injury with moderate piecemeal necrosis and moderate low Bueler inflammation and septal fibrosis with portalportal fibrosis septa with architectural distortion or severe some fibrosis. Negative for malignancy. Dr. Nieto did speak with the family concerning surgery and she had a laparoscopic cholecystectomy completed 12/17/17. (3) Elevated LFTs Current Visit: Yes Status: Acute Assessment and plan: Trending labs, see above note (4) HTN (hypertension) Current Visit: Yes Status: Acute Assessment and plan: Blood pressure is soft postop, continue fluids as per surgical service Hold hypertensive medications today Qualifiers: Hypertension type: essential hypertension Qualified Code(s): I10 - Essential (primary) hypertension (5) Leukocytosis Current Visit: Yes Status: Acute Assessment and plan: WBCs trending upward slowly. Will recheck in the a.m., patient is afebrile Qualifiers: Leukocytosis type: unspecified Qualified Code(s): D72.829 - Elevated white blood cell count, unspecified (6) Thrombocytopenia Current Visit: Yes Status: Acute Assessment and plan: Continue to hold Lovenox (7) Diabetes mellitus Current Visit: No Status: Chronic Assessment and plan: Resume diabetic diet, resume sliding scale coverage which will continue at the moderate coverage scale until her diet resumes normal intake then resume her basal insulin Qualifiers: Diabetes mellitus type: type 2 Diabetes mellitus watermelon inspector insulin use: with watermelon inspector use Diabetes mellitus complication status: without complication Qualified Code(s): E11.9 - Type 2 diabetes mellitus without complications; Z79.4 - detention (current) use of insulin; Z79.4 - exterminator termite ( current) use of insulin; Z79.4 - detention (current) use of insulin; Z79.4 - detention (current) use of insulin (8) DVT prophylaxis Current Visit: Yes Status: Acute Assessment and plan: scds - Subjective Interval history: Patient resting quietly in bed her family is at bedside. She is postop day #0 from laparoscopic cholecystectomy. She has been taking and retain some liquids. She starting to feel like she might when he eats some food. She denies any chest pain, shortness of breath, fevers, chills or changes in bowel or bladder. She has minimal incisional discomfort at this time. - Constitutional Vitals: Temp Pulse Resp BP Pulse Ox 98.0 F 82 14 118/64 100 12/17/17 14:25 12/17/17 17:36 12/17/17 17:36 12/17/17 17:36 12/17/17 17:36 General appearance: Present: A&O X 3 Internal Medicine: Result - Labs CBC & Chem 7: 12/17/17 04:06 12/17/17 04:06 Labs: Short CBC 12/17/17 Range/Units 04:06 WBC 14.6 H (4.3-11.1) K/mcL Hgb 10.1 L (11.5-15.4) g/dL Hct 30.6 L (35.3-44.9) % Plt Count 128 L (140-400) K/mcL Neutrophils # 6.6 (1.6-8.9) K/mcL BMP 12/17/17 04:06 Sodium 133 L Potassium 4.7 Chloride 106 Carbon Dioxide 22 L BUN 23 Creatinine 1.11 Glucose 242 H Calcium 8.0 L Liver Function 12/17/17 Range/Units 04:06 Total Bilirubin 8.1 H (0.3-1.0) mg/dL Direct Bilirubin 4.9 H (0.0-0.2) mg/dL AST 254 H (13-39) Units/L ALT 185 H (7-52) Units/L Alkaline Phosphatase 598 H (34-104) Units/L Albumin 2.3 L (3.5-5.7) g/dL - ABG Interpretation ABG results: PT/INR, D-dimer PT 12.6 Seconds (9.4-12.1) H 12/16/17 05:31 - VTE Documentation of Mechanical Device: Intermittent pneumatic compression device Consult Discharge Plan - Plan Referrals: Tiago Scott MD [Primary Care Provider] -
[2017-12-17 18:15] LABS: Yeast,Urine Many per hpf (None Seen)
[2017-12-17] MEDS ORDERED: *HR* OxyCODONE Immed Rel 5 MG TABLET PO PRN (19:19)
[2017-12-17] MEDS ORDERED: D5% in Water 1,000 ML IVC PRN (19:19)
[2017-12-17] MEDS ORDERED: Naloxone 0.4 MG/ML INJ IVP PRN (19:19)
[2017-12-17] MEDS ORDERED: Dextrose Gel 15 GM/37.5 ML TUBE PO PRN (19:19)
[2017-12-17] MEDS ORDERED: *HR* Dextrose 50 % in Water (Syg) 50 ML SYRINGE IVP PRN (19:19)
[2017-12-17] MEDS: URSODIOL 300 MG PO SCH (20:31)
[2017-12-17] MEDS: Ringers Solution, Lactated 1,000 ML IVC SCH (22:34)
[2017-12-18] MEDS: Piperacillin/Tazobactam 3.375 GM in 0.9 % Sodium Chloride Mini Bag 100 ML IVPB SCH ×2 (02:32→10:49)
[2017-12-18 02:44] LABS: Basophils % 0.2 %; Eosinophils % 0.1 %; Hematocrit 30.3 % (35.3-44.9); Hemoglobin 9.8 g/dL (11.5-15.4); Immature Granulocytes % 2.1 % (0-4); Lymphocytes # 4.3 K/mcL (0.6-4.6); Lymphocytes % 24.4 %; Mean Corpuscular HGB Conc 32.3 g/dL (31.6-35.5); Mean Corpuscular Hemoglobin 32.5 pg (28.0-33.3); Mean Corpuscular Volume 100.3 fL (83.0-100.0); Mean Platelet Volume 11.1 fL (9.4-12.4); Neutrophils # 11.7 K/mcL (1.6-8.9); Platelet Count 139 K/mcL (140-400); Red Blood Count 3.02 M/mcL (3.82-4.97); Red Cell Distribution Width 16.5 % (11.5-14.5); Segmented Neutrophils % 67.2 %
[2017-12-18] MEDS ORDERED: Chloraseptic Spray 177 ML BOTTLE MM PRN (04:28)
[2017-12-18 04:39] LABS: Albumin 2.2 g/dL (3.5-5.7); Albumin/Globulin Ratio 0.6 (1.1-2.2); Bilirubin,Total 6.8 mg/dL (0.3-1.0); Calcium 8.1 mg/dL (8.6-10.3); Globulin 3.4 g/dL (2.4-3.5); Total Protein 5.6 g/dL (6.4-8.9)
[2017-12-18] MEDS: 0.9 % Sodium Chloride 1,000 ML IVC SCH ×2 (05:47→05:48)
[2017-12-18] MEDS: Insulin LISPRO 300 UNITS/3 ML VIAL SQ SCH ×4 (08:42→19:59)
[2017-12-18] MEDS: URSODIOL 300 MG PO SCH ×2 (08:43→19:59)
[2017-12-18] MEDS: Pantoprazole 40 MG VIAL IVP SCH (08:43)
[2017-12-18] MEDS ORDERED: 0.9 % Sodium Chloride 500 ML IVC ONE (09:27)
[2017-12-18] MEDS ORDERED: D5% in 0.45% NACL 1,000 ML IVC SCH (09:30)
--- NOTE | 2017-12-18 09:39 | Anesthesia Evaluation Post Op ---
Date of Encounter: 12/18/17 Time of Encounter: 14:00 - Vital Signs Vital Signs: Selected Entries 12/17/17 14:24 Pulse Rate 90 Respiratory Rate 16 Blood Pressure 92/50 O2 Sat by Pulse Oximetry 99 Oxygen Flow Rate (LPM) 2 - Lungs Lungs: Clear Ascult./Percussion - Airway Airway: Non-obstructed - Cardiovascular Regular Rate - Mental Status Mental Status: Alert & Oriented, Answers Appropriately - Nausea Vomiting Nausea Vomiting: Not Present - Hydration Hydration: NPO - Discharge PostOp Status: Transfer Patient to floor (Patient has slight dyspnea in PACU but vital signs all normal. Pain under relatively good control except for some gas related pain that I think is contributing to her dyspnea. Patient was noted to have some dyspnea prior to surgery. I feel she is better than baseline and can be returned to the floor.)
--- NOTE | 2017-12-18 11:00 | Internal Med Progress Note ---
Date of Encounter: 12/18/17 Time of Encounter: 10:58 - Assessment and plan (1) Cholecystitis Current Visit: Yes Status: Acute Assessment and plan: Postop day 1 laparoscopic cholecystectomy (2) Conjugated hyperbilirubinemia Current Visit: Yes Status: Acute Assessment and plan: total bili 8.8, 9.1 direct -> 6.8, AST 201, ALt 164, alkaline phosphatase trending down slowly currently 553. She continues to be jaundiced. Gallbladder ultrasound revealed a 1.2 cm gallstone or polyp with possible cholecystitis and mild gallbladder wall thickening measuring 2.8 mm. The common bile duct was within normal limits measuring 4.5 mm, MRCP revealed findings suggestive of acute cholecystitis with inflammatory stranding and dilatation of the second and third segments of duodenum, mild to moderate hepatic steatosis with no finding choledocholithiasis or biliary obstruction according to GI notes. LFTs were elevated out of proportion to cholecystitis findings on imaging and more consistent with intrahepatic etiology. Hepatic biopsy results reviewed with findings of chronic hepatitis pattern of injury with moderate piecemeal necrosis and moderate low Bueler inflammation and septal fibrosis with portalportal fibrosis septa with architectural distortion or severe some fibrosis. Negative for malignancy. Dr. Nieto did speak with the family concerning surgery and she had a laparoscopic cholecystectomy completed . (3) Elevated LFTs Current Visit: Yes Status: Acute Assessment and plan: Trending labs, see above notes (4) HTN (hypertension) Current Visit: Yes Status: Acute Assessment and plan: Blood pressure improved, patient with increasing peripheral edema and weight gain, hold fluids Hydralazine when necessary for elevated blood pressure Qualifiers: Hypertension type: essential hypertension Qualified Code(s): I10 - Essential (primary) hypertension (5) Leukocytosis Current Visit: Yes Status: Acute Assessment and plan: WBCs trending upward slowly. Consult ID, patient is afebrile Qualifiers: Leukocytosis type: unspecified Qualified Code(s): D72.829 - Elevated white blood cell count, unspecified (6) Thrombocytopenia Current Visit: Yes Status: Acute Assessment and plan: Continue to hold Lovenox, platelets trending upwards (7) Diabetes mellitus Current Visit: No Status: Chronic Assessment and plan: Resume diabetic diet, resume sliding scale coverage which will continue at the moderate coverage scale until her diet resumes normal intake then resume her basal insulin. The patient takes 46 units of NPH 7030 in the a.m. and 26 units NPH 7030 in the p.m. A.m. glucose 401 Qualifiers: Diabetes mellitus type: type 2 Diabetes mellitus terminal operations manager insulin use: with mcfp use Diabetes mellitus complication status: without complication Qualified Code(s): E11.9 - Type 2 diabetes mellitus without complications; Z79.4 - senior living (current) use of insulin; Z79.4 - senior living ( current) use of insulin; Z79.4 - terminal operations manager (current) use of insulin; Z79.4 - terminal operations manager (current) use of insulin (8) DVT prophylaxis Current Visit: Yes Status: Acute Assessment and plan: scds (9) Hyponatremia Current Visit: Yes Status: Acute Assessment and plan: trending labs, baseline is 138 (10) JONATHON (acute kidney injury) Current Visit: Yes Status: Acute Assessment and plan: trending labs, bun and creatine above baseline avoid nephrotoxic agents Consider nephrology consult daily weight intake and output - Subjective Interval history: Patient sitting up in the chair with no complaints of pain, fever, SOB, or chest pain, no chills or sweats. She reports her legs are tight and that she is swollen to her thighs. She reports she has not been urinating much. - Constitutional Vitals: Temp Pulse Resp BP Pulse Ox 98.5 F 73 16 110/57 96 12/18/17 06:33 12/18/17 06:33 12/18/17 06:33 12/18/17 06:33 12/18/17 06:33 General appearance: Present: cooperative, A&O X 3, pleasant, answers questions appropriately - Head Head exam: Present: atraumatic, normocephalic - Eye Eye exam: Present: PERRL, conjuntiva pink, sclera anicteric Pupils: Present: PERRL Additional comments: sclera slight yellow - Neck Neck exam general surgery: Present: supple, trachea midline. Absent: lymphadenopathy - Respiratory Respiratory exam: Present: CTAB. Absent: accessory muscle use, rales, respiratory distress, rhonchi, wheezes - Cardiovascular Cardiovascular exam: Present: RRR, +S1, +S2. Absent: diastolic murmur, gallop, rubs, systolic murmur - GI/Abdominal GI/Abdominal exam: Present: normal bowel sounds, soft, no peritoneal signs. Absent: distended, tenderness Additional comments: surgical wounds are dry intact, J Rosado intact but leaking large amount of pink tinged fluid around insertion site, bulb with bloody drainage - Extremities Exam Extremities exam: Present: pedal edema, warm, radial pulses palpable and symmetrical. Absent: calf tenderness, cyanotic Additional comments: skin on lower extremities taunt, edematous to the thighs - Neurological Exam Neurological exam: Present: alert, CN II-XII intact, normal gait, oriented X3, no focal deficits. Absent: pronater drift, facial droop, speech deficit - Skin Skin exam: Present: dry, intact, normal color, warm Internal Medicine: Result - Labs CBC & Chem 7: 12/18/17 02:35 12/18/17 02:33 Labs: Short CBC 12/18/17 Range/Units 02:35 WBC 17.4 H (4.3-11.1) K/mcL Hgb 9.8 L (11.5-15.4) g/dL Hct 30.3 L (35.3-44.9) % Plt Count 139 L (140-400) K/mcL Neutrophils # 11.7 H (1.6-8.9) K/mcL BMP 12/18/17 02:33 Sodium 132 L Potassium 5.0 Chloride 107 Carbon Dioxide 19 L BUN 35 H Creatinine 1.45 H Glucose 401 H Calcium 8.1 L Liver Function 12/18/17 Range/Units 02:33 Total Bilirubin 6.8 H (0.3-1.0) mg/dL AST 201 H (13-39) Units/L ALT 164 H (7-52) Units/L Alkaline Phosphatase 553 H (34-104) Units/L Albumin 2.2 L (3.5-5.7) g/dL Urine 12/17/17 Range/Units 17:00 Urine Color [place] A (Yellow) Urine Clarity Cloudy A (Clear) Urine pH 5.5 (5.0-8.0) pH Units Ur Specific [place] > 1.030 H (1.010-1.025) Urine Protein 30 H (Neg-Trace) mg/dL Urine Glucose (UA) 500 H (Normal) mg/dL - ABG Interpretation ABG results: PT/INR, D-dimer PT 12.6 Seconds (9.4-12.1) H 12/16/17 05:31 - VTE Documentation of Mechanical Device: Intermittent pneumatic compression device Consult Discharge Plan - Plan Referrals: Tiago Scott MD [Primary Care Provider] -
--- NOTE | 2017-12-18 11:09 | Infectious Disease Consult ---
Date of Encounter: 12/18/17 Time of Encounter: 11:05 Assessment and Plan (1) Sepsis Status: Acute Assessment and plan: The patient had two SIRS criteria on admission. Likely secondary to cholecystitis. Improved clinically, but the patient's WBC remains elevated. Acute worsening of WBC likely secondary to surgery. Clinically, the patient is improved. She has been afebrile. She was tachycardic post-op yesterday, but this has resolved. No blood cultures were drawn. No lactic acid was drawn. IV fluid management per the primary team. Qualifiers: Sepsis type: sepsis due to unspecified organism Qualified Code(s): A41.9 - Sepsis, unspecified organism (2) Leukocytosis Status: Acute Assessment and plan: The patient has had leukocytosis since admission, initially with monocytosis. Likely secondary to cholecystitis. Worsening this morning likely secondary to surgery yesterday. No left shift or bandemia noted. The patient has no other SIRS criteria. Repeat CBC in the morning. If the patient becomes febrile, recommend getting blood cultures x 2 sets. Qualifiers: Leukocytosis type: unspecified Qualified Code(s): D72.829 - Elevated white blood cell count, unspecified (3) Cholecystitis Status: Acute Assessment and plan: Likely secondary to cholelithiasis. Causative organism unclear, but likely gram negative. Gallbladder UTS showed gallstones vs. gallbladder polyp. MRCP showed cholelithiasis and findings suggestive of acute cholecystitis and mild dilatation of the 2nd and 3rd segments of the duodenum with adjacent inflammatory stranding, likely related to the cholelithiais/cholecystitis or duodenitis. It did not show choledocolithiasis or biliary obstruction, but did show mild to moderate hepatic steatosis. General surgery consulted. Due to persistently elevated LFTs and leukocytosis, the patient was taken to the OR 12/17/17 and had a laparoscopic cholecystectomy by Dr. Nieto. Clinically, the patient has improved. Per her family's report she is less jaundiced today and tolerated a regular diet this morning. LFTs and bilirubin levels are improving. Wound care, drain management, and activity restrictions per the general surgery team. Discontinue Zosyn. Pain management per the primary and surgery teams. (4) JONATHON (acute kidney injury) Status: Acute Assessment and plan: Etiology unclear. The patient does have dry mucous membranes, but is positive about 8 liters over the course of her hospital stay. Urine output has not been tracked. Continue to trend. Strict I's and O's. Dose-adjust antibiotics. Avoid nephrotoxins. (5) Chronic hepatitis Status: Acute Assessment and plan: Etiology unclear, but possibly secondary to hepatic steatosis Patient reports mildly chronically elevated AST dating back to 2014 with elevated ALT and Alk Phos dating back to 2017. RUQ UTS done in 11/2015 showed gallstones, but no other abnormality. Status post liver biopsy 12/13/17 that showed a chronic hepatitis pattern of injury with moderate piecemeal necrosis and moderate lobular inflammation and septal fibrosis with siderosis grade 3 or 4, but was negative for malignancy. Hepatitis profile negative. Anti-mitochondrial antibody normal. JEFFERY normal. MELD score 23. GI consulted and following and plan to see the patient as an outpatient. (6) Cholelithiasis Status: Acute Assessment and plan: Gallbladder UTS showed gallstones vs. gallbladder polyp. No gallstones were noted in the gallbladder after its removal. Status post lap rosi 12/17/[address] Nieto. Qualifiers: Cholelithiasis location: gallbladder Cholecystitis presence: with cholecystitis Cholecystitis acuity: acute and chronic Biliary obstruction: without biliary obstruction Qualified Code(s): K80.12 - Calculus of gallbladder with acute and chronic cholecystitis without obstruction (7) Conjugated hyperbilirubinemia Status: Acute Assessment and plan: Presented with T Bili of 9.4 with jaundice. Likely multifactorial: chronic hepatitis + cholecystitis. MRCP did not show any ductal dilatation or obstruction. Improved since having her gallbladder removed 12/17/17. Continue to trend. (8) Elevated LFTs Status: Acute Assessment and plan: Likely multifactorial: cholecystitis + chronic hepatitis. Admitting labs: AST 358, ALT 218, AP 826. Improved since gallbladder removed 12/18/17. Continue to trend. (9) Thrombocytopenia Status: Acute Assessment and plan: Etiology unclear: Lovenox vs. infection vs. other. No acute bleeding noted on exam. Improving. Continue trend. (10) Hyponatremia Status: Acute (11) HTN (hypertension) Status: Acute Qualifiers: Hypertension type: essential hypertension Qualified Code(s): I10 - Essential (primary) hypertension (12) Diabetes mellitus Status: Chronic Assessment and plan: Recommend aggressive glucose monitoring and control to promote wound healing and prevent wound infection. Management per the primary team. Qualifiers: Diabetes mellitus type: type 2 Diabetes mellitus detective bureau chief insulin use: with detective bureau chief use Diabetes mellitus complication status: without complication Qualified Code(s): E11.9 - Type 2 diabetes mellitus without complications; Z79.4 - golf course keeper (current) use of insulin; Z79.4 - golf course keeper ( current) use of insulin; Z79.4 - golf course keeper (current) use of insulin; Z79.4 - golf course keeper (current) use of insulin Infectious Disease HPI - Data of Consult Patient: new to practice Consult date: 12/18/17 Requesting Physician: Nicole Christianson CNP Primary Care Provider: Tiago Scott MD - Consult Narrative Reason for consult: Leukocytosis History of present illness: Ms. Schrader is a 72 year old female with a past medical history of hypertension, hyperlipidemia, diabetes on oral anti-hyperglycemics and long-acting insulin, and gallstones. The patient was admitted to the hospital December 10 for cholecystitis. We are consulted December 18 for further recommendations regarding persistent leukocytosis. Briefly, the patient is a 72-year-old female with past medical history as stated above. The patient presented to the emergency department at the advice of her primary care provider for evaluation of markedly elevated liver function tests and hyperbilirubinemia. The patient had been experiencing severe abdominal pain with food intake and nausea for about 3 weeks prior to presentation. She had routine labs done by her PCP and saw her doctor on December 10 and was advised to come directly to the emergency department for admission to the hospital. Upon arrival, the patient was afebrile and hemodynamically stable. She had leukocytosis with 10% monocytes. Laboratory studies revealed an INR of 1.2, total bilirubin of 8.3, AST of 358, ALT of 218, and alkaline phosphatase of 826. Check a gallbladder ultrasound that showed findings consistent with a gallstones versus possible gallbladder polyp and possible cholecystitis. A urinalysis was obtained, but appears contaminated. She was her on IV Zosyn and admitted to the hospital for further evaluation. Since admission, the patient has undergone an MRCP that showed cholelithiasis with cholecystitis and possible duodenitis. Consulted and recommended a liver biopsy which occurred on December 13 that showed findings consistent with severe fibrosis and a chronic hepatitis pattern, but was negative for malignancy. Surgery was consulted and recommended holding off on surgery initially. Her LFTs and bilirubin levels remain elevated and her leukocytosis got worse so she was taken to the operating room on December [address] Nieto and underwent a laparoscopic cholecystectomy. Intraoperatively, the patient had about 1100 mL of ascites and findings consistent with cirrhosis noted. Additional workup for the patient's elevated LFTs included an JEFFERY that was normal, hepatitis profile that was negative, and antimitochondrial antibody testing that was normal. Her morning labs reveal a white blood cell count that is a little worse at 17.4 thousand as well as an acute kidney injury with serum creatinine of 1.45. Her total bili is down to 6.8, AST is 201, ALT is 164, and alkaline phosphatase is 553. She remains on IV Zosyn. We have been asked to evaluate and make further recommendations. During my exam today, the patient endorses the history as stated above. She states that for the 3 weeks prior to admission she was having severe epigastric pain that radiated to her entire abdomen with food. She states that she was to the point where she was eating only Jell-O and toast because of all she can tolerate. She reported severe nausea with the pain, but denied any vomiting. Her family states that she was jaundiced, but they did not realize it until today now that her skin color is back to normal. Her into her PCPs notes, the patient also had scleral icterus. She denied any fevers or chills or rigors. She denied any congestion, earache, or sore throat. She denied any chest pain, shortness of breath, or cough. She reported that the pain was sharp and stabbing. She states that the pain did radiate to her lower abdomen so she thought maybe she had a urinary tract infection and took about 3 days worth of Cipro that she had left over at home, but states that it did not help her pain. She denies any urinary complaints such as urinary frequency, dysuria, or blood in her urine. She denies pain elsewhere including her back or extremities. She denies any oral thrush or new skin lesions. She was recently treated with a topical cream for eczema by her job spotter. The patient lives at home with her and [place], [place]. She reports that she is a former smoker with a [id number] history. She quit about 4 years ago. She denies any alcohol use. She denies any drug use. She denies any recent travel. She does not have any pets or animals at home. CC: Nicole Christianson, BONILLA Past Med Surg Social Fam HX - Past Medical History Attestation: Yes The following information was validated with the patient. Source: patient, old records reviewed, nursing notes reviewed Medical history: diabetes (PO/Long-acting insulin), hyperlipidemia, hypertension Psychiatric history: no psych history - Past Surgical History Surgical History: cholecystectomy (Lap rosi 12/17/17), hysterectomy, orthopedic , other (Bilateral ankle ORIF) - Social History Smoking Status: Former smoker Smokeless Tobacco Status: No Alcohol use: none Drug use: none Current living situation: Home - Independent Activity Level: Independent ambulation Recent Out of Country Travel Within the Last 8 Weeks: No Exposure or Possible Exposure to Illness During Travel: No - Family History Mother Name: charlie Graff Living Status: Age at : 96 Cause of : [place] Hx Family Cardiac Disorders: Yes Hx Family GI Disorders: Yes Father Name: Karthik Graff Living Status: Age at : 80 Cause of : colon cancer Hx Family Cancer: Yes Infectious Disease-CN:Meds Aspirin Enteric Coated [Aspirin EC] 81 mg PO DAILY 12/10/17 [History] Atorvastatin [Lipitor] 10 mg PO HS 12/10/17 [History] Calcium Carbonate [Calcium] 600 mg PO DAILY 12/10/17 [History] Insulin NPH Hum/Reg Insulin Hm [Novolin 70-30 100 Unit/ml Vial] 26 unit SQ QPM 12/10/17 [History] Insulin NPH Hum/Reg Insulin Hm [Novolin 70-30 100 Unit/ml Vial] 46 unit SQ QAM 12/10/17 [History] Lisinopril [Zestril] 10 mg PO DAILY 12/10/17 [History] Vit A/C/E AC/Znox/Cupric Oxide [Eye Vitamin-Minerals Tablet] 1 each PO DAILY [History] glipiZIDE [Glucotrol] 5 mg PO BID 12/10/17 [History] 3 Allergy/AdvReac Type Severity Reaction Status Date / Time No Known Allergies Allergy Verified 12/10/17 16:30 All systems: reviewed and no additional remarkable complaints except as stated Exam - Constitutional Vitals: Temp Pulse Resp BP Pulse Ox 98.5 F 73 16 110/57 96 12/18/17 06:33 12/18/17 06:33 12/18/17 06:33 12/18/17 06:33 12/18/17 06:33 General appearance: cooperative, no acute distress, obese - Head Head exam: Present: atraumatic, normal inspection, normocephalic - Eye Eye exam: Present: EOMI, normal appearance, PERRL. Absent: sclera anicteric Pupils: Present: normal accommodation - ENT ENT exam: Present: mucous membranes dry - Neck Neck exam: Present: normal inspection - Respiratory Respiratory exam: Present: CTAB. Absent: rales, respiratory distress, rhonchi, wheezes - Cardiovascular Cardiovascular exam: Present: RRR, +S1, +S2 - GI/Abdominal GI/Abdominal exam: Present: normal bowel sounds, soft, tenderness (generalized) . Absent: distended Additional comments: Stab incisions x 4 with derma-sinha intact. No active drainage or erythema noted. SHIRA drain noted to the RUQ with serosanguinous drainage noted. - Extremities Exam Extremities exam: Present: pedal edema (1+ BLE). Absent: joint swelling, tenderness - Neurological Exam Neurological exam: Present: alert, oriented X3, no focal deficits - Psychiatric Psychiatric exam: Present: normal affect, normal mood - Skin Skin exam: Present: dry, intact, warm. Absent: normal color (Mild jaundice noted, improved per patient's family ) Infectious Disease CN: Results - Labs CBC & Chem 7: 12/18/17 02:35 12/18/17 02:33 Serology: Serology 12/17/17 12/11/17 Range/Units 17:00 14:40 Urine Color [place] A (Yellow) Urine Clarity Cloudy A (Clear) Urine pH 5.5 (5.0-8.0) pH Units Ur Specific [place] > 1.030 H (1.010-1.025) Urine Protein 30 H (Neg-Trace) mg/dL Urine Glucose (UA) 500 H (Normal) mg/dL Urine Ketones 15 H (Negative) mg/dL Urine Blood Moderate H (Negative) Urine Nitrite Positive A (Negative) Urine Bilirubin Large H (Negative) Urine Urobilinogen Normal (Normal) mg/dL Ur Leukocyte Esterase Moderate H (Negative) Urine Microscopic RBC 5-15 H (0-3) per hpf Urine Microscopic WBC 15-30 H (0-3) per hpf Ur Squamous Epith Cells Many H (None-Few) per lpf Urine Bacteria None Seen (None-Few) per hpf Urine Yeast Many H (None Seen) per hpf Ur Culture Indicated? NO. (NO) Hepatitis A IgM Ab Nonreactive (Nonreactive) Hep Bs Antigen Nonreactive (Nonreactive) Hep B Core IgM Ab Nonreactive (Nonreactive) Hepatitis C Ab Screen Nonreactive (Nonreactive) - VTE Documentation of Mechanical Device: Intermittent pneumatic compression device Consult Discharge Plan - Plan Referrals: Tiago Scott MD [Primary Care Provider] - - Attending Attestation I examined this patient and my medical decision-making was reviewed with the Resident Physician. I agree with the documented findings, disposition and treatment plan as described except to the extent set forth below. This is an addendum to original report dictated by Monie Martin CNP. Please refer to [facility] note for full details. Briefly patient is 72-year-old woman who was admitted here on the with severe abdominal pain and nausea but no vomiting. Patient was evaluated and was thought to have possible cholecystitis. Patient also had hyperbilirubinemia and elevated alkaline phosphatase AST and ALT. Patient underwent a biopsy of the liver which showed severe fibrosis and chronic hepatitis pattern but was negative for malignancy. Patient was started on Zosyn empirically. On December 17 patient was taken to surgery by Dr. nieto and she underwent a laparoscopic cholecystectomy. Intra-Op there was no signs of infection, no abscesses, no inflamed gallbladder or inflammation around the gallbladder. I did personally speak with Dr. nieto at length regarding his findings. Postop patient is healing up and was a concern for infection so consulted for further evaluation. On review of system patient denies any headache, no runny nose, no sinus pressure no earache no sore throat. Patient denies any chest pain or shortness of breath no cough. Patient denies any abdominal pain no nausea or vomiting no diarrhea no constipation. She denies any urinary symptoms. Patient denies any joint pain or rash. At this point I will not sure what is causing her leukocytosis. Could have been due to the liver issue and gallbladder issue. The gallbladder has been removed. Ideally treat for 24 hours after surgery and that has been done. I think it is reasonable to stop all antibiotics unobserved. The infection revealed esophagitis and then we will pursue it further. We will review of system and physical exam is unremarkable on the patient. Also might consider doing a peripheral smear if she continues to have the leukocytosis.
[2017-12-18] MEDS: Ringers Solution, Lactated 1,000 ML IVC SCH (13:41)
[2017-12-18] MEDS ORDERED: Insulin NPH/REG 70/30 100 UNIT/ML (x5UNIT) SQ ONE (14:29)
--- NOTE | 2017-12-18 14:45 | Event Note ---
Date of Encounter: 12/18/17 Time of Encounter: 14:32 Was asked by my Colleague Mago Perkins, MIGUE. to help in seeing this patient. Patient admitted with RUQ pain and found to have acute rosi. She is s/p Lap rosi by Dr. Nieto on 12/17. LFTs are starting to trend down but today noted to have worsening leukocytosis, worsening kidney function, and hyperglycemia with glucose in the 400s. Patient has a h/o diabetes and has not received basal insulin while here (not since her OR at least). She is afebrile and hemodynamically stable on RA. She is net + around 8 L since admits. A D5 1/2NS has been ordered which I am going to stop given her hyperglycemia. This has not been started yet. Stop lisinopril given due to JONATHON. Will consider a small dose of lasix 20 mg IV tomorrow if creatinine continues to worsen and consider a consult to nephrology. Patient again is net 8L. ID saw the patient for leukocytosis. No need to broaden abx. Will keep on zosyn today and check CBC in am. May stop abx tomorrow if WBC is better and no signs of infection. Will leave up to ID. Give 26 units of NPH now and evaluate for more tomorrow morning.
[2017-12-18] MEDS ORDERED: *HR* OxyCODONE Immed Rel 5 MG TABLET PO PRN (15:34)
--- NOTE | 2017-12-18 16:01 | General Surgery Progress Note ---
Date of Encounter: 12/18/17 Time of Encounter: 15:36 Subjective Narrative: General Surgery - POD #1 s/p laparoscopic cholecystectomy Patient feeling well, voicing no complaints. Patient denies pain; no nausea or vomiting. Afebrile, pulse 80, respirations 18, blood pressure 113/59. Still appears jaundiced but less intensely Lungs: Clear bilaterally; no obvious pain on deep inspiration Abdomen: Soft, port sites clean and dry. Yousif-Rosado drain - right upper quadrant - recorded drainage 575 mL however the drain opened and spilled the reservoir contents onto the patient's gown. Extremities: 2+ pitting edema extending to the thighs Laboratories: White count has increased to 17.4, likely response to surgery. Neutrophils 11.7% Hemoglobin 9.8 with hematocrit 30.3 (slightly diminished) but also may be reflective of administered perioperative fluids Electrolytes notable for a sodium of 132, potassium of 5.0, bicarbonate 19; BUN markedly increased to 35 and creatinine markedly increased 1.45 eGFR decreased to 35 Bilirubin has improved 6.8 (previously 8.1); AST 201 (previously 254) ALT 164 (previously 185); alkaline phosphatase 553 (previously 598 Liver biopsies: Chronic hepatitis, pattern of injury with moderate piecemeal necrosis and moderate lobular inflammation. Septal fibrosis and portal portal fibrosis septa with architectural distortion consistent with severe fibrosis described. The findings are nonspecific but indicate moderate necroinflammatory activity and severe fibrosis. Potential etiologies include viral hepatitis, drug-induced hepatitis, autoimmune hepatitis and primary biliary cirrhosis. The patient has history of known gallstones without obvious symptomatology since 2016. It is possible that this long-standing cholelithiasis may be a contributing factor to the patient's current hepatic Impression: Postoperative day 1, status post laparoscopic cholecystectomy. Acceptable post op status. Elevated leukocytosis and neutrophilia most likely related to response to surgery. This is expected to resolve as patient recovers from the procedure. Patient is clinically well/ improved since surgery but demonstrates significant deterioration of renal status. Little urine output is recorded since surgery. Increased dependent edema detected in both lower extremities consistent with 3rd spacing and significant positive fluid balance. Despite the apparent fluid excess - no noted respiratory symptoms. chronic hepatitis of undetermined etiology. Viral Hepatitis markers suggested per Pathology - unknown if these are pending. Patient has been on ATB/Zosyn since 12/11/2017 - will discontinue as no infectious source has been identified Objective Vital Signs - Last 8 Hours Temp Pulse Resp BP Pulse Ox 12/18/17 14:08 97.6 F 80 18 132/68 99 12/18/17 12:03 97.7 F 79 16 113/59 97 Intake and Output 12/17/17 12/18/17 12/18/17 23:59 07:59 15:59 Intake Total 1000 / 1000 560 / 560 Output Total 500 / 500 275 / 275 350 / 350 Balance -500 / -500 725 / 725 210 / 210 Intake: IV Fluids 1000 / 1000 100 / 100 Lactated Ringers 1,000 ML @ 75 400 / 400 mls/hr IVC .[id number] MELANIE Rx#: [id number] Zosyn 3.375 GM In 0.9 % Sodium 100 / 100 100 / 100 Chloride (Mini-Bag +) 100 ML @ 25 mls/hr IVPB Q8H MELANIE Rx#: [id number] Oral 460 / 460 Output: Urine 50 / 50 Wound Drainage 500 / 500 275 / 275 300 / 300 Right Lower Abdomen 500 / 500 275 / 275 300 / 300 Other: Meal Breakfast Percent of Meal Consumed 80% # Voids 1 1 Weight 94.914 kg 96.218 kg Blood Glucose* 325 359 389 Patient Weight 12/18/17 23:59 Weight 96.218 kg - Labs 12/18/17 02:35 12/18/17 02:33 Diabetes panel 12/18/17 Range/Units 02:33 Sodium 132 L (136-145) mEq/L Potassium 5.0 (3.5-5.1) mEq/L Chloride 107 (98-107) mEq/L Carbon Dioxide 19 L (23-29) mEq/L BUN 35 H (8-23) mg/dL Creatinine 1.45 H (0.60-1.20) mg/dL Glucose 401 H (70-105) mg/dL Calcium 8.1 L (8.6-10.3) mg/dL AST 201 H (13-39) Units/L ALT 164 H (7-52) Units/L Alkaline Phosphatase 553 H (34-104) Units/L Albumin 2.2 L (3.5-5.7) g/dL Calcium panel 12/18/17 Range/Units 02:33 Calcium 8.1 L (8.6-10.3) mg/dL Albumin 2.2 L (3.5-5.7) g/dL Pituitary panel 12/18/17 Range/Units 02:33 Sodium 132 L (136-145) mEq/L Potassium 5.0 (3.5-5.1) mEq/L Chloride 107 (98-107) mEq/L Carbon Dioxide 19 L (23-29) mEq/L BUN 35 H (8-23) mg/dL Creatinine 1.45 H (0.60-1.20) mg/dL Glucose 401 H (70-105) mg/dL Calcium 8.1 L (8.6-10.3) mg/dL Adrenal panel 12/18/17 Range/Units 02:33 Sodium 132 L (136-145) mEq/L Potassium 5.0 (3.5-5.1) mEq/L Chloride 107 (98-107) mEq/L Carbon Dioxide 19 L (23-29) mEq/L BUN 35 H (8-23) mg/dL Creatinine 1.45 H (0.60-1.20) mg/dL Glucose 401 H (70-105) mg/dL Calcium 8.1 L (8.6-10.3) mg/dL Total Bilirubin 6.8 H (0.3-1.0) mg/dL AST 201 H (13-39) Units/L ALT 164 H (7-52) Units/L Alkaline Phosphatase 553 H (34-104) Units/L Albumin 2.2 L (3.5-5.7) g/dL - VTE Documentation of Mechanical Device: Intermittent pneumatic compression device Consult Discharge Plan - Plan Referrals: Tiago Scott MD [Primary Care Provider] -
[2017-12-18] MEDS ORDERED: Furosemide 20 MG/2 ML VIAL IVP ONE (16:21)
[2017-12-19 04:23] LABS: Basophils # 0.1 K/mcL (0.0-0.2); Basophils % 0.3 %; Eosinophils # 0.2 K/mcL (0.0-0.6); Eosinophils % 1.3 %; Hematocrit 31.8 % (35.3-44.9); Hemoglobin 10.3 g/dL (11.5-15.4); Immature Granulocytes % 1.5 % (0-4); Lymphocytes # 8.2 K/mcL (0.6-4.6); Lymphocytes % 44.9 %; Mean Corpuscular HGB Conc 32.4 g/dL (31.6-35.5); Mean Corpuscular Hemoglobin 32.8 pg (28.0-33.3); Mean Corpuscular Volume 101.3 fL (83.0-100.0); Mean Platelet Volume 10.9 fL (9.4-12.4); Monocytes # 1.1 K/mcL (0.0-1.3); Neutrophils # 8.4 K/mcL (1.6-8.9); Nucleated Red Blood Cells 0.2 /100 WBC (0); Platelet Count 148 K/mcL (140-400); Red Blood Count 3.14 M/mcL (3.82-4.97); Red Cell Distribution Width 17.2 % (11.5-14.5)
[2017-12-19 04:41] LABS: Albumin 2.3 g/dL (3.5-5.7); Albumin/Globulin Ratio 0.7 (1.1-2.2); Bilirubin,Total 5.3 mg/dL (0.3-1.0); Calcium 8.2 mg/dL (8.6-10.3); Globulin 3.1 g/dL (2.4-3.5); Magnesium 2.2 mg/dL (1.6-2.6); Potassium 4.5 mEq/L (3.5-5.1); Total Protein 5.4 g/dL (6.4-8.9)
[2017-12-19 04:46] LABS: Anisocytosis 1+ (Not Present); Macrocytosis Present (Not Present); Platelet Estimate Normal (Normal)
[2017-12-19] MEDS: Insulin LISPRO 300 UNITS/3 ML VIAL SQ SCH ×4 (08:30→20:46)
[2017-12-19] MEDS: Pantoprazole 40 MG VIAL IVP SCH (08:31)
--- NOTE | 2017-12-19 09:50 | Internal Med Progress Note ---
Date of Encounter: 12/19/17 Time of Encounter: 09:48 - Assessment and plan (1) JONATHON (acute kidney injury) Current Visit: Yes Status: Acute Assessment and plan: The patient is not positive about 8 L. Creatinine improved somewhat with 20 mg of IV Lasix yesterday. We will give her another 20 mg IV this morning and 20 mg later tonight. Monitor kidney function and monitor I&O's. His kidney numbers worsen, we will ask nephrology to see the patient and get an ultrasound of the kidneys. Hold nephrotoxins other than Lasix. (2) Cholecystitis Current Visit: Yes Status: Acute Assessment and plan: Status post laparoscopic cholecystectomy on 12/[address] hardy. We will leave surgical management to him. LFTs are improving. Has a SHIRA drain in place. Continue pain control. Tolerating diet. The patient eventually will need to follow-up with the prefitter doors given findings of liver biopsy of chronic hepatitis of undetermined etiology. (3) HTN (hypertension) Current Visit: Yes Status: Acute Assessment and plan: Blood pressure stable. I am holding lisinopril. Qualifiers: Hypertension type: essential hypertension Qualified Code(s): I10 - Essential (primary) hypertension (4) Leukocytosis Current Visit: Yes Status: Acute Assessment and plan: Presumptive thought is that it is reactive after surgery. Continues to rise. Afebrile. The patient is off antibiotics and ID is following. We will leave antibiotics management to them. Cultures are negative. Her UA was done on showed positive nitrites and moderate leuk esterase. No bacteria were seen. Qualifiers: Leukocytosis type: unspecified Qualified Code(s): D72.829 - Elevated white blood cell count, unspecified (5) Thrombocytopenia Current Visit: Yes Status: Acute Assessment and plan: Improving now. The patient has multiple risk factors for DVTs. If okay with surgery I will add heparin subcutaneous. (6) Diabetes mellitus Current Visit: No Status: Chronic Assessment and plan: Glucose is better now. Still elevated in the 200s. We will resume the patient' s home regimen of Humulin 70/30. She takes 46 units in the morning as well as 26 units at night. Continue Accu-Cheks. Continue insulin sliding scale. Qualifiers: Diabetes mellitus type: type 2 Diabetes mellitus terminal operations manager insulin use: with snf use Diabetes mellitus complication status: without complication Qualified Code(s): E11.9 - Type 2 diabetes mellitus without complications; Z79.4 - [facility] (current) use of insulin; Z79.4 - terminal carman ( current) use of insulin; Z79.4 - terminal carman (current) use of insulin; Z79.4 - terminal carman (current) use of insulin (7) Acute blood loss as cause of postoperative anemia Current Visit: Yes Status: Acute Assessment and plan: This is expected postoperatively. Admission hemoglobin is 13.9. It is 10.3 today. We will continue to monitor. (8) DVT prophylaxis Current Visit: Yes Status: Acute Assessment and plan: SCDs - Subjective Interval history: Patient was seen and examined. No acute events. Says she feels better. She is on room air. Afebrile. Patient admitted with RUQ pain and found to have acute rosi. She is s/p Lap rosi by Dr. Hardy on 12/17. LFTs are starting to trend down noted to have worsening leukocytosis, worsening kidney function, and hyperglycemia with glucose in the 400s. She was transferred down to because of that. Given 20 mg IV Lasix yesterday with some response. Her glucose is in the 200s now and she did receive 26 units of her Humulin 70/30 yesterday. Patient has a h/o diabetes and has not received basal insulin while here (not since her OR at least). - Constitutional Vitals: Temp Pulse Resp BP Pulse Ox 97.8 F 88 16 142/67 96 12/19/17 07:03 12/19/17 07:03 12/19/17 07:03 12/19/17 07:03 12/19/17 07:03 General appearance: Present: cooperative, A&O X 3, pleasant, answers questions appropriately Exam: GEN: NAD CVS: RRR. S1, S2, No m/r/g RESP: CTAB ABD: Soft, mild right upper quadrant tenderness, ND, +BS a SHIRA drain noted. EXT: Anasarca. 2+ DP. No rashes NEURO: Nonfocal Internal Medicine: Result - Labs CBC & Chem 7: 12/19/17 04:04 12/19/17 04:04 Labs: Short CBC 12/19/17 Range/Units 04:04 WBC 18.2 H (4.3-11.1) K/mcL Hgb 10.3 L (11.5-15.4) g/dL Hct 31.8 L (35.3-44.9) % Plt Count 148 (140-400) K/mcL Neutrophils # 8.4 (1.6-8.9) K/mcL BMP 12/19/17 04:04 Sodium 132 L Potassium 4.5 Chloride 105 Carbon Dioxide 23 BUN 38 H Creatinine 1.25 H Glucose 202 H Calcium 8.2 L Liver Function 12/19/17 Range/Units 04:04 Total Bilirubin 5.3 H (0.3-1.0) mg/dL AST 185 H (13-39) Units/L ALT 151 H (7-52) Units/L Alkaline Phosphatase 540 H (34-104) Units/L Albumin 2.3 L (3.5-5.7) g/dL - ABG Interpretation ABG results: PT/INR, D-dimer PT 12.6 Seconds (9.4-12.1) H 12/16/17 05:31 - VTE Documentation of Mechanical Device: Intermittent pneumatic compression device Consult Discharge Plan - Plan Referrals: Tiago Scott MD [Primary Care Provider] -
--- NOTE | 2017-12-19 10:19 | Infectious Disease Progress No ---
Date of Encounter: 12/19/17 Time of Encounter: 10:17 - Assessment and Plan (1) Sepsis Current Visit: Yes Status: Acute The patient had two SIRS criteria on admission. Likely secondary to cholecystitis. Improved clinically, but the patient's WBC remains elevated. Acute worsening of WBC likely secondary to surgery. Clinically, the patient is improved. She has been afebrile. She was tachycardic post-op, but this has resolved. No blood cultures were drawn. No lactic acid was drawn. IV fluid management per the primary team. Qualifiers: Sepsis type: sepsis due to unspecified organism Qualified Code(s): A41.9 - Sepsis, unspecified organism (2) Leukocytosis Current Visit: Yes Status: Acute The patient has had leukocytosis since admission, initially with monocytosis. Likely secondary to cholecystitis. Worsening likely secondary to surgery. No left shift or bandemia noted. The patient has no other SIRS criteria. Repeat CBC in the morning. If the patient becomes febrile, recommend getting blood cultures x 2 sets. Consider checking peripheral smear. Qualifiers: Leukocytosis type: unspecified Qualified Code(s): D72.829 - Elevated white blood cell count, unspecified (3) Cholecystitis Current Visit: Yes Status: Acute Likely secondary to cholelithiasis. Causative organism unclear, but likely gram negative. Gallbladder UTS showed gallstones vs. gallbladder polyp. MRCP showed cholelithiasis and findings suggestive of acute cholecystitis and mild dilatation of the 2nd and 3rd segments of the duodenum with adjacent inflammatory stranding, likely related to the cholelithiais/cholecystitis or duodenitis. It did not show choledocolithiasis or biliary obstruction, but did show mild to moderate hepatic steatosis. General surgery consulted. Due to persistently elevated LFTs and leukocytosis, the patient was taken to the OR 12/17/17 and had a laparoscopic cholecystectomy by Dr. Nieto. Clinically, the patient has improved. LFTs and bilirubin levels are improving. Able to tolerate regular diet. Wound care, drain management, and activity restrictions per the general surgery team. Antibiotics discontinued. Pain management per the primary and surgery teams. (4) JONATHON (acute kidney injury) Current Visit: Yes Status: Acute Etiology unclear. Improved this morning. The patient is positive about 8 liters over the course of her hospital stay. Urine output has not been tracked. Continue to trend. Strict I's and O's. Dose-adjust antibiotics. Avoid nephrotoxins. (5) Chronic hepatitis Current Visit: Yes Status: Acute Etiology unclear, but possibly secondary to hepatic steatosis Patient reports mildly chronically elevated AST dating back to 2014 with elevated ALT and Alk Phos dating back to 2017. RUQ UTS done in 11/2015 showed gallstones, but no other abnormality. Status post liver biopsy 12/13/17 that showed a chronic hepatitis pattern of injury with moderate piecemeal necrosis and moderate lobular inflammation and septal fibrosis with siderosis grade 3 or 4, but was negative for malignancy. Hepatitis profile negative. Anti-mitochondrial antibody normal. JEFFERY normal. MELD score 23. GI consulted and following and plan to see the patient as an outpatient. (6) Cholelithiasis Current Visit: Yes Status: Acute Gallbladder UTS showed gallstones vs. gallbladder polyp. No gallstones were noted in the gallbladder after its removal. Status post lap rosi 12/17/[address] Nieto. Qualifiers: Cholelithiasis location: gallbladder Cholecystitis presence: with cholecystitis Cholecystitis acuity: acute and chronic Biliary obstruction: without biliary obstruction Qualified Code(s): K80.12 - Calculus of gallbladder with acute and chronic cholecystitis without obstruction (7) Conjugated hyperbilirubinemia Current Visit: Yes Status: Acute Presented with T Bili of 9.4 with jaundice. Likely multifactorial: chronic hepatitis + cholecystitis. MRCP did not show any ductal dilatation or obstruction. Improved since having her gallbladder removed 12/17/17. Continue to trend. (8) Elevated LFTs Current Visit: Yes Status: Acute Likely multifactorial: cholecystitis + chronic hepatitis. Admitting labs: AST 358, ALT 218, AP 826. Improved since gallbladder removed 12/18/17. Continue to trend. (9) Thrombocytopenia Current Visit: Yes Status: Resolved Etiology unclear: Lovenox vs. infection vs. other. No acute bleeding noted on exam. Resolved. Continue trend. (10) Hyponatremia Current Visit: Yes Status: Acute (11) HTN (hypertension) Current Visit: Yes Status: Acute Qualifiers: Hypertension type: essential hypertension Qualified Code(s): I10 - Essential (primary) hypertension (12) Diabetes mellitus Current Visit: No Status: Chronic Recommend aggressive glucose monitoring and control to promote wound healing and prevent wound infection. Management per the primary team. Qualifiers: Diabetes mellitus type: type 2 Diabetes mellitus intermodal dispatcher insulin use: with intermodal dispatcher use Diabetes mellitus complication status: without complication Qualified Code(s): E11.9 - Type 2 diabetes mellitus without complications; Z79.4 - [facility] (current) use of insulin; Z79.4 - intermodal dispatcher ( current) use of insulin; Z79.4 - intermodal dispatcher (current) use of insulin; Z79.4 - [facility] (current) use of insulin - Subjective Interval history: Patient seen and examined. No acute events noted overnight. Patient states she feels okay today, but is having some soreness around the SHIRA drain. States drainage around SHIRA drain has improved. Denies fevers, chills, or rigors. Denies headache, neck pain, or dizziness. Denies chest pain, shortness of breath, or cough. Denies nausea, vomiting, or diarrhea. Reports BM yesterday. Reports mild post-op pain, worse with movement and mainly at the surgical and drain sites. Denies urinary complaints and states her appetite is good. Denies oral thrush or skin lesions. Infect Dis PN-Objective Data - Labs CBC & Chem 7: 12/19/17 04:04 12/19/17 04:04 Labs: Laboratory Results - last 24 hr 12/18/17 12/18/17 12/18/17 07:15 12:06 16:04 WBC RBC Hgb Hct MCV MCH MCHC RDW Plt Count MPV Immature Gran % Seg Neutrophils % Lymphocytes % Monocytes % Eosinophils % Basophils % Neutrophils # Lymphocytes # Monocytes # Eosinophils # Basophils # Nucleated RBCs/100 WBC Platelet Estimate Anisocytosis Macrocytosis Sodium Potassium Chloride Carbon Dioxide BUN Creatinine Est GFR ( Amer) Est GFR (Non-Af Amer) BUN/Creatinine Ratio Glucose POC Glucose 359 H 389 H 311 H Calculated Osmolality Lactic Acid Calcium Phosphorus Magnesium Total Bilirubin AST ALT Alkaline Phosphatase Serum Total Protein Albumin Globulin Albumin/Globulin Ratio 12/18/17 12/19/17 12/19/17 19:55 04:04 04:04 WBC 18.2 H RBC 3.14 L Hgb 10.3 L Hct 31.8 L MCV 101.3 H MCH 32.8 MCHC 32.4 RDW 17.2 H Plt Count 148 MPV 10.9 Immature Gran % 1.5 Seg Neutrophils % 46.0 Lymphocytes % 44.9 Monocytes % 6.0 Eosinophils % 1.3 Basophils % 0.3 Neutrophils # 8.4 Lymphocytes # 8.2 H Monocytes # 1.1 Eosinophils # 0.2 Basophils # 0.1 Nucleated RBCs/100 WBC 0.2 H Platelet Estimate Normal Anisocytosis 1+ A Macrocytosis Present A Sodium 132 L Potassium 4.5 Chloride 105 Carbon Dioxide 23 BUN 38 H Creatinine 1.25 H Est GFR ( Amer) 51 L Est GFR (Non-Af Amer) 42 L BUN/Creatinine Ratio 30 H Glucose 202 H POC Glucose 263 H Calculated Osmolality 289 Lactic Acid Calcium 8.2 L Phosphorus Magnesium 2.2 Total Bilirubin 5.3 H AST 185 H ALT 151 H Alkaline Phosphatase 540 H Serum Total Protein 5.4 L Albumin 2.3 L Globulin 3.1 Albumin/Globulin Ratio 0.7 L 12/19/17 12/19/17 04:04 04:04 WBC RBC Hgb Hct MCV MCH MCHC RDW Plt Count MPV Immature Gran % Seg Neutrophils % Lymphocytes % Monocytes % Eosinophils % Basophils % Neutrophils # Lymphocytes # Monocytes # Eosinophils # Basophils # Nucleated RBCs/100 WBC Platelet Estimate Anisocytosis Macrocytosis Sodium Potassium Chloride Carbon Dioxide BUN Creatinine Est GFR ( Amer) Est GFR (Non-Af Amer) BUN/Creatinine Ratio Glucose POC Glucose Calculated Osmolality Lactic Acid 1.3 Calcium Phosphorus 3.0 Magnesium Total Bilirubin AST ALT Alkaline Phosphatase Serum Total Protein Albumin Globulin Albumin/Globulin Ratio Cultures: Serology 12/17/17 12/11/17 Range/Units 17:00 14:40 Urine Color [place] A (Yellow) Urine Clarity Cloudy A (Clear) Urine pH 5.5 (5.0-8.0) pH Units Ur Specific [place] > 1.030 H (1.010-1.025) Urine Protein 30 H (Neg-Trace) mg/dL Urine Glucose (UA) 500 H (Normal) mg/dL Urine Ketones 15 H (Negative) mg/dL Urine Blood Moderate H (Negative) Urine Nitrite Positive A (Negative) Urine Bilirubin Large H (Negative) Urine Urobilinogen Normal (Normal) mg/dL Ur Leukocyte Esterase Moderate H (Negative) Urine Microscopic RBC 5-15 H (0-3) per hpf Urine Microscopic WBC 15-30 H (0-3) per hpf Ur Squamous Epith Cells Many H (None-Few) per lpf Urine Bacteria None Seen (None-Few) per hpf Urine Yeast Many H (None Seen) per hpf Ur Culture Indicated? NO. (NO) Hepatitis A IgM Ab Nonreactive (Nonreactive) Hep Bs Antigen Nonreactive (Nonreactive) Hep B Core IgM Ab Nonreactive (Nonreactive) Hepatitis C Ab Screen Nonreactive (Nonreactive) Exam - Constitutional Vitals: Temp Pulse Resp BP Pulse Ox 97.8 F 88 16 142/67 96 12/19/17 07:03 12/19/17 07:03 12/19/17 07:03 12/19/17 07:03 12/19/17 07:03 General appearance: cooperative, no acute distress, obese - Head Head exam: Present: atraumatic, normal inspection, normocephalic - Eye Eye exam: Present: EOMI, normal appearance. Absent: sclera anicteric (Improved) Pupils: Present: normal accommodation - ENT ENT exam: Present: mucous membranes moist - Neck Neck exam: Present: normal inspection - Respiratory Respiratory exam: Present: CTAB. Absent: rales, respiratory distress, rhonchi, wheezes - Cardiovascular Cardiovascular exam: Present: RRR, +S1, +S2 - GI/Abdominal GI/Abdominal exam: Present: distended, normal bowel sounds, soft, tenderness ( Generalized) Additional comments: Surgical stab incisions x 4 with dermabond intact and wound edges approximated without drainage. SHIRA drain noted to the RUQ with serosanguinous drainage. - Extremities Exam Extremities exam: Present: pedal edema (2+ BLE). Absent: joint swelling, tenderness - Neurological Exam Neurological exam: Present: alert, oriented X3, no focal deficits - Psychiatric Psychiatric exam: Present: normal affect, normal mood - Skin Skin exam: Present: dry, intact, normal color, warm - VTE Documentation of Mechanical Device: Intermittent pneumatic compression device Consult Discharge Plan - Plan Referrals: Tiago Scott MD [Primary Care Provider] - - Attending Attestation I examined this patient and my medical decision-making was reviewed with the Resident Physician. I agree with the documented findings, disposition and treatment plan as described except to the extent set forth below.
[2017-12-19] MEDS: Insulin NPH/REG 70/30 100 UNIT/ML (x5UNIT) SQ SCH ×2 (10:29→17:12)
[2017-12-19] MEDS: Furosemide 20 MG/2 ML VIAL IVP SCH ×2 (10:33→20:46)
--- NOTE | 2017-12-19 12:26 | General Surgery Progress Note ---
Date of Encounter: 12/19/17 Time of Encounter: 12:20 Subjective Narrative: General Surgery - POD #2 The patient feeling well, remaining afebrile, hemodynamically stable Only complaint is that of pain at the drain site in the right upper anterior abdominal wall' Tolerating diet, no nausea or vomiting Lungs: Clear Abdomen: Soft with minimal tenderness around the drain site; port sites clean and intact. SHIRA output: 765 mL for calendar day 3; 200 mL so far today - fluid slightly bilious in color but most consistent with serous fluid/ascites Urine output - no significant Mounce recorded however patient reports frequent large urinary voids Laboratories: Persistent leukocytosis of 18.2 however neutrophilia has resolved. Monocyte count remains elevated at 8.2% Hemoglobin 10.3 with hematocrit 31.8; platelet count 148,000 Sodium 132 (unchanged) potassium 4.5, BUN 38, creatinine improved to 1.25 with resultant increase eGFR - 30 (previously 24) Bilirubin 5.3 (previously 6.8); AST 185, ALT 151, alkaline phosphatase 54 - all improved Operative pathology pending Impression: Postoperative day #2, status post laparoscopic cholecystectomy - acceptable postoperative status Clinically improved Persistent leukocytosis warrants continued observation SHIRA drainage consistent with hepatitis/ascites - hopefully will diminish as patient continues to recover/improved Renal status slightly improved Objective Vital Signs - Last 8 Hours Temp Pulse Resp BP Pulse Ox 12/19/17 11:19 97.4 F L 71 20 144/72 100 12/19/17 07:03 97.8 F 88 16 142/67 96 12/19/17 04:32 97.5 F L 69 18 148/68 98 Intake and Output 12/18/17 12/19/17 12/19/17 23:59 07:59 15:59 Intake Total 800 / 800 0 / 0 240 / 240 Output Total 90 / 90 100 / 100 100 / 100 Balance 710 / 710 -100 / -100 140 / 140 Intake: Oral 800 / 800 0 / 0 240 / 240 Output: Urine 0 / 0 0 / 0 Wound Drainage 90 / 90 100 / 100 100 / 100 Right Lower Abdomen 90 / 90 100 / 100 100 / 100 Other: Meal Breakfast Percent of Meal Consumed 75% # Voids 1 Weight 97.5 kg Blood Glucose* 263 207 267 Patient Weight 12/19/17 23:59 Weight 97.5 kg - Labs 12/19/17 04:04 12/19/17 04:04 Diabetes panel 12/19/17 Range/Units 04:04 Sodium 132 L (136-145) mEq/L Potassium 4.5 (3.5-5.1) mEq/L Chloride 105 (98-107) mEq/L Carbon Dioxide 23 (23-29) mEq/L BUN 38 H (8-23) mg/dL Creatinine 1.25 H (0.60-1.20) mg/dL Glucose 202 H (70-105) mg/dL Calcium 8.2 L (8.6-10.3) mg/dL AST 185 H (13-39) Units/L ALT 151 H (7-52) Units/L Alkaline Phosphatase 540 H (34-104) Units/L Albumin 2.3 L (3.5-5.7) g/dL Calcium panel 12/19/17 12/19/17 Range/Units 04:04 04:04 Calcium 8.2 L (8.6-10.3) mg/dL Phosphorus 3.0 (2.7-4.5) mg/dL Albumin 2.3 L (3.5-5.7) g/dL Pituitary panel 12/19/17 Range/Units 04:04 Sodium 132 L (136-145) mEq/L Potassium 4.5 (3.5-5.1) mEq/L Chloride 105 (98-107) mEq/L Carbon Dioxide 23 (23-29) mEq/L BUN 38 H (8-23) mg/dL Creatinine 1.25 H (0.60-1.20) mg/dL Glucose 202 H (70-105) mg/dL Calcium 8.2 L (8.6-10.3) mg/dL Adrenal panel 12/19/17 Range/Units 04:04 Sodium 132 L (136-145) mEq/L Potassium 4.5 (3.5-5.1) mEq/L Chloride 105 (98-107) mEq/L Carbon Dioxide 23 (23-29) mEq/L BUN 38 H (8-23) mg/dL Creatinine 1.25 H (0.60-1.20) mg/dL Glucose 202 H (70-105) mg/dL Calcium 8.2 L (8.6-10.3) mg/dL Total Bilirubin 5.3 H (0.3-1.0) mg/dL AST 185 H (13-39) Units/L ALT 151 H (7-52) Units/L Alkaline Phosphatase 540 H (34-104) Units/L Albumin 2.3 L (3.5-5.7) g/dL - VTE Documentation of Mechanical Device: Intermittent pneumatic compression device Consult Discharge Plan - Plan Referrals: Tiago Scott MD [Primary Care Provider] -
[2017-12-20 06:37] LABS: Albumin 2.2 g/dL (3.5-5.7); Albumin/Globulin Ratio 0.7 (1.1-2.2); Bilirubin,Direct 3.2 mg/dL (0.0-0.2); Bilirubin,Indirect 2.3 mg/dL (0.0-1.2); Bilirubin,Total 5.5 mg/dL (0.3-1.0); Globulin 3.3 g/dL (2.4-3.5); Total Protein 5.5 g/dL (6.4-8.9)
[2017-12-20 06:39] LABS: Albumin 2.2 g/dL (3.5-5.7); Albumin/Globulin Ratio 0.7 (1.1-2.2); Bilirubin,Total 5.4 mg/dL (0.3-1.0); Calcium 8.3 mg/dL (8.6-10.3); Globulin 3.3 g/dL (2.4-3.5); Potassium 4.7 mEq/L (3.5-5.1); Total Protein 5.5 g/dL (6.4-8.9)
[2017-12-20 06:42] LABS: Basophils # 0.1 K/mcL (0.0-0.2); Basophils % 0.4 %; Eosinophils # 0.2 K/mcL (0.0-0.6); Eosinophils % 1.3 %; Hematocrit 33.4 % (35.3-44.9); Hemoglobin 10.6 g/dL (11.5-15.4); Immature Granulocytes % 1.5 % (0-4); Lymphocytes # 7.1 K/mcL (0.6-4.6); Lymphocytes % 44.5 %; Mean Corpuscular HGB Conc 31.7 g/dL (31.6-35.5); Mean Corpuscular Hemoglobin 32.2 pg (28.0-33.3); Mean Corpuscular Volume 101.5 fL (83.0-100.0); Mean Platelet Volume 11.2 fL (9.4-12.4); Monocytes # 1.1 K/mcL (0.0-1.3); Monocytes % 7.2 %; Neutrophils # 7.2 K/mcL (1.6-8.9); Nucleated Red Blood Cells 0.3 /100 WBC (0); Platelet Count 172 K/mcL (140-400); Red Blood Count 3.29 M/mcL (3.82-4.97); Segmented Neutrophils % 45.1 %
[2017-12-20] MEDS: Pantoprazole 40 MG VIAL IVP SCH (08:17)
[2017-12-20] MEDS: Insulin NPH/REG 70/30 100 UNIT/ML (x5UNIT) SQ SCH ×2 (08:18→17:10)
[2017-12-20] MEDS: Furosemide 20 MG/2 ML VIAL IVP SCH ×2 (08:18→21:51)
--- NOTE | 2017-12-20 08:40 | Internal Med Progress Note ---
Date of Encounter: 12/20/17 Time of Encounter: 08:37 - Assessment and plan (1) JONATHON (acute kidney injury) Current Visit: Yes Status: Acute Assessment and plan: Diuresed about 3 L since yesterday. She is still about 5 L net positive. Creatinine again improved. Good urine output. We will continue to gently released with 20 mg IV Lasix twice a day. Monitor kidney function and monitor I&O's. If her kidney numbers worsen, we will ask nephrology to see the patient and get an ultrasound of the kidneys. Hold nephrotoxins other than Lasix. (2) Cholecystitis Current Visit: Yes Status: Acute Assessment and plan: Status post laparoscopic cholecystectomy on 12/[address] Nieto. We will leave surgical management to him. LFTs are a little worse today. Has a SHIRA drain in place with serosanguineous fluid. Continue pain control. Tolerating diet. The patient eventually will need to follow-up with the concreter given findings of liver biopsy of chronic hepatitis of undetermined etiology. (3) HTN (hypertension) Current Visit: Yes Status: Acute Assessment and plan: Blood pressure stable. I am holding lisinopril. Qualifiers: Hypertension type: essential hypertension Qualified Code(s): I10 - Essential (primary) hypertension (4) Leukocytosis Current Visit: Yes Status: Acute Assessment and plan: Presumptive thought is that it is reactive after surgery. Starting to come down today.. Afebrile. The patient is off antibiotics and ID is following. We will leave antibiotics management to them. Cultures are negative. Her UA was done on 12/17 showed positive nitrites and moderate leuk esterase. No bacteria were seen. Qualifiers: Leukocytosis type: unspecified Qualified Code(s): D72.829 - Elevated white blood cell count, unspecified (5) Thrombocytopenia Current Visit: Yes Status: Resolved Assessment and plan: Improving now. The patient has multiple risk factors for DVTs. If okay with surgery I will add heparin subcutaneous. (6) Diabetes mellitus Current Visit: No Status: Chronic Assessment and plan: Glucose is much better controlled. Continue with home regimen of Humulin 70/ 30. She takes 46 units in the morning as well as 26 units at night. Continue Accu-Cheks. Continue insulin sliding scale. 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 Admission hemoglobin is 13.9. It is 10.6 today. We will continue to monitor. (8) DVT prophylaxis Current Visit: Yes Status: Acute Assessment and plan: We will add heparin subcutaneous - Subjective Interval history: Patient was seen and examined. No acute events. Continues to diurese well. Diuresed about 3 L since yesterday. Tolerating diet. No abdominal pain that is significant. She is on room air. Afebrile. Patient admitted with RUQ pain and found to have acute rosi. She is s/p Lap rosi by Dr. Nieto on 12/17. LFTs are starting to trend down but are up compared to yesterday this morning. She was noted to have worsening leukocytosis, worsening kidney function, and hyperglycemia with glucose in the 400s. She was transferred down to because of that. - Constitutional Vitals: Temp Pulse Resp BP Pulse Ox 97.9 F 89 16 111/68 98 12/20/17 07:38 12/20/17 07:38 12/20/17 07:38 12/20/17 07:38 12/20/17 07:38 General appearance: Present: cooperative, A&O X 3, pleasant, answers questions appropriately Exam: GEN: NAD CVS: RRR. S1, S2, No m/r/g RESP: CTAB ABD: Soft, mild right upper quadrant tenderness, ND, +BS a SHIRA drain noted with serosanguineous fluid EXT: Anasarca. 2+ DP. No rashes NEURO: Nonfocal Internal Medicine: Result - Labs CBC & Chem 7: 12/20/17 04:00 12/20/17 04:00 Labs: Short CBC 12/20/17 Range/Units 04:00 WBC 15.9 H (4.3-11.1) K/mcL Hgb 10.6 L (11.5-15.4) g/dL Hct 33.4 L (35.3-44.9) % Plt Count 172 (140-400) K/mcL Neutrophils # 7.2 (1.6-8.9) K/mcL BMP 12/20/17 04:00 Sodium 133 L Potassium 4.7 Chloride 106 Carbon Dioxide 23 BUN 36 H Creatinine 1.16 Glucose 82 Calcium 8.3 L Liver Function 12/20/17 12/20/17 Range/Units 04:00 04:00 Total Bilirubin 5.4 H 5.5 H (0.3-1.0) mg/dL Direct Bilirubin 3.2 H (0.0-0.2) mg/dL AST 228 H 226 H (13-39) Units/L ALT 157 H 158 H (7-52) Units/L Alkaline Phosphatase 575 H 584 H (34-104) Units/L Albumin 2.2 L 2.2 L (3.5-5.7) g/dL - ABG Interpretation ABG results: PT/INR, D-dimer PT 12.6 Seconds (9.4-12.1) H 12/16/17 05:31 - VTE Documentation of Mechanical Device: Intermittent pneumatic compression device Consult Discharge Plan - Plan Referrals: Tiago Scott MD [Primary Care Provider] -
--- NOTE | 2017-12-20 08:42 | Infectious Disease Progress No ---
Date of Encounter: 12/20/17 Time of Encounter: 08:40 - Assessment and Plan (1) Sepsis Current Visit: Yes Status: Acute The patient had two SIRS criteria on admission. Likely secondary to cholecystitis. Improved clinically. WBC has started to trend down. Acute worsening of WBC likely secondary to surgery. Clinically, the patient is improved. She has been afebrile. She was tachycardic post-op, but this has resolved. No blood cultures were drawn. No lactic acid was drawn. IV fluid management per the primary team. Qualifiers: Sepsis type: sepsis due to unspecified organism Qualified Code(s): A41.9 - Sepsis, unspecified organism (2) Leukocytosis Current Visit: Yes Status: Acute The patient has had leukocytosis since admission, initially with monocytosis. Likely secondary to cholecystitis. Worsening likely secondary to surgery. No left shift or bandemia noted and her WBC has started to trend down. The patient has no other SIRS criteria. Repeat CBC in the morning. If the patient becomes febrile, recommend getting blood cultures x 2 sets. Qualifiers: Leukocytosis type: unspecified Qualified Code(s): D72.829 - Elevated white blood cell count, unspecified (3) Cholecystitis Current Visit: Yes Status: Acute Likely secondary to cholelithiasis. Causative organism unclear, but likely gram negative. Gallbladder UTS showed gallstones vs. gallbladder polyp. MRCP showed cholelithiasis and findings suggestive of acute cholecystitis and mild dilatation of the 2nd and 3rd segments of the duodenum with adjacent inflammatory stranding, likely related to the cholelithiais/cholecystitis or duodenitis. It did not show choledocolithiasis or biliary obstruction, but did show mild to moderate hepatic steatosis. General surgery consulted. Due to persistently elevated LFTs and leukocytosis, the patient was taken to the OR 12/17/17 and had a laparoscopic cholecystectomy by Dr. Nieto. Clinically, the patient has improved. LFTs and bilirubin levels are improving. Able to tolerate regular diet. Wound care, drain management, and activity restrictions per the general surgery team. Antibiotics discontinued. Pain management per the primary and surgery teams. (4) JONATHON (acute kidney injury) Current Visit: Yes Status: Acute Etiology unclear. Resolved. The patient is positive about 8 liters over the course of her hospital stay. Urine output adequate. Continue to trend. Strict I's and O's. Dose-adjust antibiotics. Avoid nephrotoxins. (5) Chronic hepatitis Current Visit: Yes Status: Acute Etiology unclear, but possibly secondary to hepatic steatosis Patient reports mildly chronically elevated AST dating back to 2014 with elevated ALT and Alk Phos dating back to 2017. RUQ UTS done in 11/2015 showed gallstones, but no other abnormality. Status post liver biopsy 12/13/17 that showed a chronic hepatitis pattern of injury with moderate piecemeal necrosis and moderate lobular inflammation and septal fibrosis with siderosis grade 3 or 4, but was negative for malignancy. Hepatitis profile negative. Anti-mitochondrial antibody normal. JEFFERY normal. MELD score 23. GI consulted and following and plan to see the patient as an outpatient. Still taking Ursodiol. I advised nursing to call GI and see if they recommend continuing this medication. (6) Cholelithiasis Current Visit: Yes Status: Acute Gallbladder UTS showed gallstones vs. gallbladder polyp. No gallstones were noted in the gallbladder after its removal. Status post lap rosi 12/17/[address] Nieto. Qualifiers: Cholelithiasis location: gallbladder Cholecystitis presence: with cholecystitis Cholecystitis acuity: acute and chronic Biliary obstruction: without biliary obstruction Qualified Code(s): K80.12 - Calculus of gallbladder with acute and chronic cholecystitis without obstruction (7) Conjugated hyperbilirubinemia Current Visit: Yes Status: Acute Presented with T Bili of 9.4 with jaundice. Likely multifactorial: chronic hepatitis + cholecystitis. MRCP did not show any ductal dilatation or obstruction. Improved since having her gallbladder removed 12/17/17. Continue to trend. (8) Elevated LFTs Current Visit: Yes Status: Acute Likely multifactorial: cholecystitis + chronic hepatitis. Admitting labs: AST 358, ALT 218, AP 826. Improved since gallbladder removed 12/18/17. Continue to trend. (9) Thrombocytopenia Current Visit: Yes Status: Resolved Etiology unclear: Lovenox vs. infection vs. other. No acute bleeding noted on exam. Resolved. Continue trend. (10) Hyponatremia Current Visit: Yes Status: Acute (11) HTN (hypertension) Current Visit: Yes Status: Acute Qualifiers: Hypertension type: essential hypertension Qualified Code(s): I10 - Essential (primary) hypertension (12) Diabetes mellitus Current Visit: No Status: Chronic Recommend aggressive glucose monitoring and control to promote wound healing and prevent wound infection. Management per the primary team. Qualifiers: Diabetes mellitus type: type 2 Diabetes mellitus intermediate insulin use: with terminal operator use Diabetes mellitus complication status: without complication Qualified Code(s): E11.9 - Type 2 diabetes mellitus without complications; Z79.4 - longterm (current) use of insulin; Z79.4 - longterm ( current) use of insulin; Z79.4 - intermediate designer (current) use of insulin; Z79.4 - intermediate designer (current) use of insulin - Subjective Interval history: Patient seen and examined sitting up in the bedside chair. No acute events noted overnight. Patient states she feels okay today, but is having some soreness around the SHIRA drain. States drainage around SHIRA drain has improved, but did have a large amount yesterday. Denies fevers, chills, or rigors. Denies headache, neck pain, or dizziness. Denies chest pain, shortness of breath, or cough. Denies nausea, vomiting, or diarrhea. Reports BM yesterday. Reports mild post-op pain, worse with movement and mainly at the drain site. Denies urinary complaints and states her appetite is good. Denies oral thrush or skin lesions. Infect Dis PN-Objective Data - Labs CBC & Chem 7: 12/20/17 04:00 12/20/17 04:00 Labs: Laboratory Results - last 24 hr 12/19/17 12/19/17 12/19/17 07:06 11:12 15:49 WBC RBC Hgb Hct MCV MCH MCHC RDW Plt Count MPV Immature Gran % Seg Neutrophils % Lymphocytes % Monocytes % Eosinophils % Basophils % Neutrophils # Lymphocytes # Monocytes # Eosinophils # Basophils # Nucleated RBCs/100 WBC Sodium Potassium Chloride Carbon Dioxide BUN Creatinine Est GFR ( Amer) Est GFR (Non-Af Amer) BUN/Creatinine Ratio Glucose POC Glucose 207 H 267 H 167 H Calculated Osmolality Calcium Magnesium Total Bilirubin Direct Bilirubin Indirect Bilirubin AST ALT Alkaline Phosphatase Serum Total Protein Albumin Globulin Albumin/Globulin Ratio 12/19/17 12/20/17 12/20/17 19:45 04:00 04:00 WBC 15.9 H RBC 3.29 L Hgb 10.6 L Hct 33.4 L MCV 101.5 H MCH 32.2 MCHC 31.7 RDW 18.0 H Plt Count 172 MPV 11.2 Immature Gran % 1.5 Seg Neutrophils % 45.1 Lymphocytes % 44.5 Monocytes % 7.2 Eosinophils % 1.3 Basophils % 0.4 Neutrophils # 7.2 Lymphocytes # 7.1 H Monocytes # 1.1 Eosinophils # 0.2 Basophils # 0.1 Nucleated RBCs/100 WBC 0.3 H Sodium 133 L Potassium 4.7 Chloride 106 Carbon Dioxide 23 BUN 36 H Creatinine 1.16 Est GFR ( Amer) 56 L Est GFR (Non-Af Amer) 46 L BUN/Creatinine Ratio 31 H Glucose 82 POC Glucose 201 H Calculated Osmolality 283 Calcium 8.3 L Magnesium 2.0 Total Bilirubin 5.4 H Direct Bilirubin Indirect Bilirubin AST 228 H ALT 157 H Alkaline Phosphatase 575 H Serum Total Protein 5.5 L Albumin 2.2 L Globulin 3.3 Albumin/Globulin Ratio 0.7 L 12/20/17 04:00 WBC RBC Hgb Hct MCV MCH MCHC RDW Plt Count MPV Immature Gran % Seg Neutrophils % Lymphocytes % Monocytes % Eosinophils % Basophils % Neutrophils # Lymphocytes # Monocytes # Eosinophils # Basophils # Nucleated RBCs/100 WBC Sodium Potassium Chloride Carbon Dioxide BUN Creatinine Est GFR ( Amer) Est GFR (Non-Af Amer) BUN/Creatinine Ratio Glucose POC Glucose Calculated Osmolality Calcium Magnesium Total Bilirubin 5.5 H Direct Bilirubin 3.2 H Indirect Bilirubin 2.3 H AST 226 H ALT 158 H Alkaline Phosphatase 584 H Serum Total Protein 5.5 L Albumin 2.2 L Globulin 3.3 Albumin/Globulin Ratio 0.7 L Cultures: Serology 12/17/17 12/11/17 Range/Units 17:00 14:40 Urine Color Sterling A (Yellow) Urine Clarity Cloudy A (Clear) Urine pH 5.5 (5.0-8.0) pH Units Ur Specific Burt > 1.030 H (1.010-1.025) Urine Protein 30 H (Neg-Trace) mg/dL Urine Glucose (UA) 500 H (Normal) mg/dL Urine Ketones 15 H (Negative) mg/dL Urine Blood Moderate H (Negative) Urine Nitrite Positive A (Negative) Urine Bilirubin Large H (Negative) Urine Urobilinogen Normal (Normal) mg/dL Ur Leukocyte Esterase Moderate H (Negative) Urine Microscopic RBC 5-15 H (0-3) per hpf Urine Microscopic WBC 15-30 H (0-3) per hpf Ur Squamous Epith Cells Many H (None-Few) per lpf Urine Bacteria None Seen (None-Few) per hpf Urine Yeast Many H (None Seen) per hpf Ur Culture Indicated? NO. (NO) Hepatitis A IgM Ab Nonreactive (Nonreactive) Hep Bs Antigen Nonreactive (Nonreactive) Hep B Core IgM Ab Nonreactive (Nonreactive) Hepatitis C Ab Screen Nonreactive (Nonreactive) Exam - Constitutional Vitals: Temp Pulse Resp BP Pulse Ox 97.9 F 89 16 111/68 98 12/20/17 07:38 12/20/17 07:38 12/20/17 07:38 12/20/17 07:38 12/20/17 07:38 General appearance: cooperative, no acute distress, obese - Head Head exam: Present: atraumatic, normal inspection, normocephalic - Eye Eye exam: Present: EOMI, normal appearance, PERRL, sclera anicteric Pupils: Present: normal accommodation - ENT ENT exam: Present: mucous membranes moist - Neck Neck exam: Present: normal inspection - Respiratory Respiratory exam: Present: CTAB. Absent: rales, respiratory distress, rhonchi, wheezes - Cardiovascular Cardiovascular exam: Present: RRR, +S1, +S2 - GI/Abdominal GI/Abdominal exam: Present: normal bowel sounds, soft, tenderness (RUQ drain site). Absent: distended Additional comments: Surgical stab incisions x 4 noted with dermabond. No erythema, warmth, or drainage noted. SHIRA drain noted to the RUQ with serous drainage noted. No drainage noted around the drain at this time. - Extremities Exam Extremities exam: Present: normal inspection, pedal edema (1+ BLE). Absent: joint swelling, tenderness - Neurological Exam Neurological exam: Present: alert, oriented X3, no focal deficits - Psychiatric Psychiatric exam: Present: normal affect, normal mood - Skin Skin exam: Present: dry, intact, normal color, warm - VTE Documentation of Mechanical Device: Intermittent pneumatic compression device Consult Discharge Plan - Plan Referrals: Tiago Scott MD [Primary Care Provider] - - Attending Attestation I examined this patient and my medical decision-making was reviewed with the Resident Physician. I agree with the documented findings, disposition and treatment plan as described except to the extent set forth below.
[2017-12-20] MEDS: Insulin LISPRO 300 UNITS/3 ML VIAL SQ SCH ×4 (08:51→21:51)
[2017-12-20] MEDS ORDERED: Insulin NPH/REG 70/30 100 UNIT/ML (x5UNIT) SQ SCH (09:00)
--- NOTE | 2017-12-20 12:30 | General Surgery Progress Note ---
Date of Encounter: 12/20/17 Time of Encounter: 12:10 Subjective Narrative: General Surgery - POD #3 Patient feeling well, voicing no complaints except for pain at the SHIRA drain site. Patient remains afebrile, most recently 87.8, pulse 86, respirations 16, blood pressure 117/69 Lungs: Clear bilaterally; no abdominal pain and deep inspiration Abdomen: Soft with active bowel sounds. Port sites clean and dry SHIRA drain - output approximately 500 mL serous fluid (ascites) for calendar day 12/19/17. 350 mL so far today Urine output 2900 mL in response to Lasix diuresis Operative pathology still pending Laboratories: White count has improved to 15.9, hemoglobin 10.6 with hematocrit 33.4 -Increased with diuresis; platelet count 172,000. Lymphocyte count has improved to 7.1%, differential continues to return to normal. Sodium 133; BUN 36, creatinine 1.16 - renal status improved Bilirubin has increased slightly to 5.5, with increase AST 226, ALT 158, AST 584 Impression: Postoperative day #3, status post laparoscopic cholecystectomy. Operative pathology pending Renal status improved with effective diuresis - BUN 36, creatinine 1.16; eGFR 46 Peripheral edema also improved with the effective diuresis Hyponatremia, 133 Chronic hepatitis - of undetermined etiology; ascites as a result Plan: Continue to monitor LFTs maintain SHIRA drain for now awaiting operative pathology results Objective Vital Signs - Last 8 Hours Temp Pulse Resp BP Pulse Ox 12/20/17 11:05 97.8 F 86 16 117/69 100 12/20/17 07:38 97.9 F 89 16 111/68 98 Intake and Output 12/19/17 12/20/17 12/20/17 23:59 07:59 15:59 Intake Total 240 / 240 Output Total 600 / 600 3150 / 3150 100 / 100 Balance -360 / -360 -3150 / -3150 -100 / -100 Intake: Oral 240 / 240 Output: Urine 550 / 550 900 / 900 Catheter 1999 / 1999 Wound Drainage 50 / 50 250 / 250 100 / 100 Right Lower Abdomen 50 / 50 250 / 250 100 / 100 Other: Meal Dinner Percent of Meal Consumed 50% # Voids 1 Weight 97.795 kg Blood Glucose* 201 74 173 Patient Weight 12/20/17 23:59 Weight 97.795 kg - Labs 12/20/17 04:00 12/20/17 04:00 Diabetes panel 12/20/17 12/20/17 Range/Units 04:00 04:00 Sodium 133 L (136-145) mEq/L Potassium 4.7 (3.5-5.1) mEq/L Chloride 106 (98-107) mEq/L Carbon Dioxide 23 (23-29) mEq/L BUN 36 H (8-23) mg/dL Creatinine 1.16 (0.60-1.20) mg/dL Glucose 82 (70-105) mg/dL Calcium 8.3 L (8.6-10.3) mg/dL AST 228 H 226 H (13-39) Units/L ALT 157 H 158 H (7-52) Units/L Alkaline Phosphatase 575 H 584 H (34-104) Units/L Albumin 2.2 L 2.2 L (3.5-5.7) g/dL Calcium panel 12/20/17 12/20/17 Range/Units 04:00 04:00 Calcium 8.3 L (8.6-10.3) mg/dL Albumin 2.2 L 2.2 L (3.5-5.7) g/dL Pituitary panel 12/20/17 Range/Units 04:00 Sodium 133 L (136-145) mEq/L Potassium 4.7 (3.5-5.1) mEq/L Chloride 106 (98-107) mEq/L Carbon Dioxide 23 (23-29) mEq/L BUN 36 H (8-23) mg/dL Creatinine 1.16 (0.60-1.20) mg/dL Glucose 82 (70-105) mg/dL Calcium 8.3 L (8.6-10.3) mg/dL Adrenal panel 12/20/17 12/20/17 Range/Units 04:00 04:00 Sodium 133 L (136-145) mEq/L Potassium 4.7 (3.5-5.1) mEq/L Chloride 106 (98-107) mEq/L Carbon Dioxide 23 (23-29) mEq/L BUN 36 H (8-23) mg/dL Creatinine 1.16 (0.60-1.20) mg/dL Glucose 82 (70-105) mg/dL Calcium 8.3 L (8.6-10.3) mg/dL Total Bilirubin 5.4 H 5.5 H (0.3-1.0) mg/dL AST 228 H 226 H (13-39) Units/L ALT 157 H 158 H (7-52) Units/L Alkaline Phosphatase 575 H 584 H (34-104) Units/L Albumin 2.2 L 2.2 L (3.5-5.7) g/dL - VTE Documentation of Mechanical Device: Intermittent pneumatic compression device Consult Discharge Plan - Plan Referrals: Tiago Scott MD [Primary Care Provider] -
[2017-12-20] MEDS: *HR* Heparin 5,000 UNIT/ML VIAL SQ SCH ×2 (15:33→21:52)
[2017-12-21 05:11] LABS: Basophils # 0.1 K/mcL (0.0-0.2); Basophils % 0.3 %; Eosinophils # 0.2 K/mcL (0.0-0.6); Eosinophils % 1.5 %; Hematocrit 31.1 % (35.3-44.9); Hemoglobin 10.1 g/dL (11.5-15.4); Immature Granulocytes % 1.2 % (0-4); Lymphocytes # 7.4 K/mcL (0.6-4.6); Lymphocytes % 48.1 %; Mean Corpuscular HGB Conc 32.5 g/dL (31.6-35.5); Mean Corpuscular Volume 101.6 fL (83.0-100.0); Mean Platelet Volume 10.9 fL (9.4-12.4); Monocytes # 1.2 K/mcL (0.0-1.3); Monocytes % 7.5 %; Neutrophils # 6.4 K/mcL (1.6-8.9); Nucleated Red Blood Cells 0.1 /100 WBC (0); Platelet Count 142 K/mcL (140-400); Red Blood Count 3.06 M/mcL (3.82-4.97); Red Cell Distribution Width 18.4 % (11.5-14.5); Segmented Neutrophils % 41.4 %
[2017-12-21 05:28] LABS: Albumin 2.1 g/dL (3.5-5.7); Albumin/Globulin Ratio 0.7 (1.1-2.2); Bilirubin,Total 5.4 mg/dL (0.3-1.0); Globulin 3.2 g/dL (2.4-3.5); Potassium 4.1 mEq/L (3.5-5.1); Total Protein 5.3 g/dL (6.4-8.9)
[2017-12-21 05:44] LABS: Platelet Estimate Slight Decrease (Normal); Polychromasia 1+ (Not Present); Reactive Lymphocytes Present (Not Present)
[2017-12-21 05:45] LABS: Anisocytosis 1+ (Not Present)
[2017-12-21] MEDS: *HR* Heparin 5,000 UNIT/ML VIAL SQ SCH ×3 (05:45→20:09)
--- NOTE | 2017-12-21 07:54 | Internal Med Progress Note ---
Date of Encounter: 12/22/17 Time of Encounter: 07:52 - Assessment and plan (1) JONATHON (acute kidney injury) Current Visit: Yes Status: Acute Assessment and plan: Diuresed about 6 L last 2 days. She is still about 2.5 L net positive. Creatinine a little worsened today. She creatinine at 1.22. We will hold IV Lasix today. Check labs in the morning. Avoid nephrotoxins. (2) Cholecystitis Current Visit: Yes Status: Acute (3) HTN (hypertension) Current Visit: Yes Status: Acute Assessment and plan: Blood pressure stable. I am holding lisinopril. Qualifiers: Hypertension type: essential hypertension Qualified Code(s): I10 - Essential (primary) hypertension (4) Leukocytosis Current Visit: Yes Status: Acute Assessment and plan: Presumptive thought is that it is reactive after surgery. Started to come down on 12/20. Today it is at 15.4 compared to 15.9 yesterday. Afebrile. The patient is off antibiotics and ID is following. We will leave antibiotics management to them. Cultures are negative. Her UA was done on 12/17 showed positive nitrites and moderate leuk esterase. No bacteria were seen. Qualifiers: Leukocytosis type: unspecified Qualified Code(s): D72.829 - Elevated white blood cell count, unspecified (5) Thrombocytopenia Current Visit: Yes Status: Resolved Assessment and plan: Resolved. (6) Diabetes mellitus Current Visit: No Status: Chronic Assessment and plan: Glucose is controlled again. Continue with home regimen of Humulin 70/30. She takes 46 units in the morning as well as 26 units at night. Continue Accu- Cheks. Continue insulin sliding scale. Qualifiers: Diabetes mellitus type: type 2 Diabetes mellitus remote computer terminal operator insulin use: with remote computer terminal operator use Diabetes mellitus complication status: without complication Qualified Code(s): E11.9 - Type 2 diabetes mellitus without complications; Z79.4 - care home (current) use of insulin; Z79.4 - care home ( current) use of insulin; Z79.4 - care home (current) use of insulin; Z79.4 - care home (current) use of insulin (7) Acute blood loss as cause of postoperative anemia Current Visit: Yes Status: Acute Assessment and plan: This is expected postoperatively. Admission hemoglobin is 13.9. It is 10.1 today. We will continue to monitor. (8) DVT prophylaxis Current Visit: Yes Status: Acute Assessment and plan: Heparin subcutaneous - Subjective Interval history: Patient was seen and examined. No acute events. Good urine output. Again diuresed about 3 L. She is only net about 2.5 L for the stay. She was about 8 L net + 8L since we started diuresis. Tolerating diet. No abdominal pain that is significant. She is on room air. Afebrile. Patient admitted with RUQ pain and found to have acute rosi. She is s/p Lap rosi by Dr. Nieto on 12/17. LFTs are starting to trend down but are up compared to yesterday this morning. She was noted to have worsening leukocytosis, worsening kidney function, and hyperglycemia with glucose in the 400s. She was transferred down to because of that. - Constitutional Vitals: Temp Pulse Resp BP Pulse Ox 98.1 F 86 16 146/69 98 12/21/17 03:29 12/21/17 06:46 12/21/17 06:46 12/21/17 06:46 12/21/17 06:46 General appearance: Present: cooperative, A&O X 3, pleasant, answers questions appropriately Exam: GEN: NAD CVS: RRR. S1, S2, No m/r/g RESP: CTAB ABD: Soft, mild right upper quadrant tenderness, ND, +BS a SHIRA drain noted with serosanguineous fluid EXT: Anasarca. 2+ DP. No rashes NEURO: Nonfocal Internal Medicine: Result - Labs CBC & Chem 7: 12/22/17 04:40 12/22/17 04:40 Labs: Short CBC 12/21/17 Range/Units 04:00 WBC 15.4 H (4.3-11.1) K/mcL Hgb 10.1 L (11.5-15.4) g/dL Hct 31.1 L (35.3-44.9) % Plt Count 142 (140-400) K/mcL Neutrophils # 6.4 (1.6-8.9) K/mcL BMP 12/21/17 04:00 Sodium 134 L Potassium 4.1 Chloride 102 Carbon Dioxide 26 BUN 35 H Creatinine 1.22 H Glucose 78 Calcium 8.0 L Liver Function 12/21/17 Range/Units 04:00 Total Bilirubin 5.4 H (0.3-1.0) mg/dL AST 196 H (13-39) Units/L ALT 140 H (7-52) Units/L Alkaline Phosphatase 533 H (34-104) Units/L Albumin 2.1 L (3.5-5.7) g/dL - ABG Interpretation ABG results: PT/INR, D-dimer PT 12.6 Seconds (9.4-12.1) H 12/16/17 05:31 - VTE Documentation of Mechanical Device: Intermittent pneumatic compression device Consult Discharge Plan - Plan Referrals: Tiago Scott MD [Primary Care Provider] - (WEB REQUEST SENT ON 12/21/17)
[2017-12-21] MEDS: Pantoprazole 40 MG VIAL IVP SCH (09:01)
[2017-12-21] MEDS: Insulin LISPRO 300 UNITS/3 ML VIAL SQ SCH ×4 (09:02→20:07)
--- NOTE | 2017-12-21 10:42 | General Surgery Progress Note ---
Date of Encounter: 12/21/17 Time of Encounter: 09:55 Subjective Patient reports: no new complaints Narrative: General Surgery - POD #4 Patient indicating that she is feeling well, voicing no new complaints. Still has pain at the SHIRA drainage site Remains afebrile, currently 98.1, pulse 86, respirations 16, blood pressure 146/69. Lungs: Clear Abdomen: Soft with tenderness around the SHIRA site however SHIRA site is clean and dry. Active bowel sounds; satisfactory appetite/oral intake. Port sites clean , intact, healing well SHIRA drainage: 500 mL recorder for 12/19/17; 700 mL, 12/20/17; 175 mL so far today Urine output: 3500 mL for the last 24 hours; 1400 mL so far today Operative pathology: Acute and chronic cholecystitis no cholelithiasis identified Labs: Persistent leukocytosis 15.4, hemoglobin 10.1, hematocrit 31.1; platelet count 142,000. Sodium continues to improve, 134, potassium 4.1; BUN 35, creatinine 1.22 - reflective of the diuresis Bilirubin 5.4, slowly trending downward; AST 196, ALT 140, alkaline phosphatase 533 - all trending downward. Impression: Postoperative day #4 status post laparoscopic cholecystectomy for acute and chronic cholecystitis. No cholelithiasis identified despite ultrasound findings of 2016 and more recently Chronic hepatitis/cirrhosis of undetermined etiology. Ascites due to chronic hepatitis/cirrhosis - appears to be diminishing per SHIRA drainage Peripheral edema significantly improved with diuresis Mild renal insufficiency due to the aggressive diuresis; Lasix has been discontinued. The renal function is expected to rebound Hyponatremia- no obvious symptoms; slowly resolving Objective Vital Signs - Last 8 Hours Temp Pulse Resp BP Pulse Ox 12/21/17 06:46 86 16 146/69 98 12/21/17 03:29 98.1 F 82 16 129/70 97 Intake and Output 12/20/17 12/21/17 12/21/17 23:59 07:59 15:59 Intake Total 0 / 0 0 / 0 360 / 360 Output Total 600 / 600 1500 / 1500 75 / 75 Balance -600 / -600 -1500 / -1500 285 / 285 Intake: Oral 0 / 0 0 / 0 360 / 360 Output: Urine 600 / 600 1400 / 1400 Wound Drainage 0 / 0 100 / 100 75 / 75 Right Lower Abdomen 0 / 0 100 / 100 75 / 75 Other: Meal Breakfast Percent of Meal Consumed 100% Weight 96.978 kg Blood Glucose* 137 72 Patient Weight 12/21/17 23:59 Weight 96.978 kg - Labs 12/21/17 04:00 12/21/17 04:00 Diabetes panel 12/21/17 Range/Units 04:00 Sodium 134 L (136-145) mEq/L Potassium 4.1 (3.5-5.1) mEq/L Chloride 102 (98-107) mEq/L Carbon Dioxide 26 (23-29) mEq/L BUN 35 H (8-23) mg/dL Creatinine 1.22 H (0.60-1.20) mg/dL Glucose 78 (70-105) mg/dL Calcium 8.0 L (8.6-10.3) mg/dL AST 196 H (13-39) Units/L ALT 140 H (7-52) Units/L Alkaline Phosphatase 533 H (34-104) Units/L Albumin 2.1 L (3.5-5.7) g/dL Calcium panel 12/21/17 Range/Units 04:00 Calcium 8.0 L (8.6-10.3) mg/dL Albumin 2.1 L (3.5-5.7) g/dL Pituitary panel 12/21/17 Range/Units 04:00 Sodium 134 L (136-145) mEq/L Potassium 4.1 (3.5-5.1) mEq/L Chloride 102 (98-107) mEq/L Carbon Dioxide 26 (23-29) mEq/L BUN 35 H (8-23) mg/dL Creatinine 1.22 H (0.60-1.20) mg/dL Glucose 78 (70-105) mg/dL Calcium 8.0 L (8.6-10.3) mg/dL Adrenal panel 12/21/17 Range/Units 04:00 Sodium 134 L (136-145) mEq/L Potassium 4.1 (3.5-5.1) mEq/L Chloride 102 (98-107) mEq/L Carbon Dioxide 26 (23-29) mEq/L BUN 35 H (8-23) mg/dL Creatinine 1.22 H (0.60-1.20) mg/dL Glucose 78 (70-105) mg/dL Calcium 8.0 L (8.6-10.3) mg/dL Total Bilirubin 5.4 H (0.3-1.0) mg/dL AST 196 H (13-39) Units/L ALT 140 H (7-52) Units/L Alkaline Phosphatase 533 H (34-104) Units/L Albumin 2.1 L (3.5-5.7) g/dL - VTE Documentation of Mechanical Device: Intermittent pneumatic compression device Consult Discharge Plan - Plan Referrals: Tiago Scott MD [Primary Care Provider] -
[2017-12-21] MEDS: Insulin NPH/REG 70/30 100 UNIT/ML (x5UNIT) SQ SCH ×2 (12:55→17:27)
[2017-12-21] MEDS: Sennosides/Docusate Sodium TABLET PO SCH (17:27)
[2017-12-22] MEDS: *HR* Heparin 5,000 UNIT/ML VIAL SQ SCH ×3 (04:30→22:15)
[2017-12-22 05:12] LABS: Hematocrit 34.6 % (35.3-44.9); Hemoglobin 11.4 g/dL (11.5-15.4); Immature Granulocytes % 1.6 % (0-4); Mean Corpuscular HGB Conc 32.9 g/dL (31.6-35.5); Mean Corpuscular Hemoglobin 33.3 pg (28.0-33.3); Mean Corpuscular Volume 101.2 fL (83.0-100.0); Mean Platelet Volume 10.9 fL (9.4-12.4); Platelet Count 161 K/mcL (140-400); Red Blood Count 3.42 M/mcL (3.82-4.97); Red Cell Distribution Width 19.2 % (11.5-14.5); Segmented Neutrophils % 44.7 %
[2017-12-22 05:13] LABS: Basophils # 0.1 K/mcL (0.0-0.2); Basophils % 0.5 %; Eosinophils # 0.2 K/mcL (0.0-0.6); Eosinophils % 1.2 %; Lymphocytes # 7.9 K/mcL (0.6-4.6); Monocytes # 1.2 K/mcL (0.0-1.3); Neutrophils # 7.9 K/mcL (1.6-8.9)
[2017-12-22 05:51] LABS: Platelet Estimate Normal (Normal); Toxic Granulation Present (Not Present)
[2017-12-22 06:09] LABS: Albumin 2.4 g/dL (3.5-5.7); Albumin/Globulin Ratio 0.7 (1.1-2.2); Bilirubin,Total 5.4 mg/dL (0.3-1.0); Calcium 8.4 mg/dL (8.6-10.3); Globulin 3.6 g/dL (2.4-3.5); Magnesium 2.2 mg/dL (1.6-2.6); Potassium 4.3 mEq/L (3.5-5.1)
[2017-12-22] MEDS: Insulin LISPRO 300 UNITS/3 ML VIAL SQ SCH ×4 (08:04→20:45)
[2017-12-22] MEDS: Insulin NPH/REG 70/30 100 UNIT/ML (x5UNIT) SQ SCH ×2 (08:27→17:10)
[2017-12-22] MEDS: Sennosides/Docusate Sodium TABLET PO SCH (08:27)
--- NOTE | 2017-12-22 09:09 | Internal Med Progress Note ---
Date of Encounter: 12/22/17 Time of Encounter: 09:07 - Assessment and plan (1) JONATHON (acute kidney injury) Current Visit: Yes Status: Acute Assessment and plan: Diuresed about 6 L last 3 days. She is still about 3 L net positive. Creatinine is stable since yesterday. Creatinine 1.24 today. 1.22 12/21. 1.05 on admission. Will hold lasix again. May need outpatient labs at [facility]. Check labs in the morning. Avoid nephrotoxins. (2) Cholecystitis Current Visit: Yes Status: Acute Assessment and plan: Status post laparoscopic cholecystectomy on 12/[address] Nieto. We will leave surgical management to him. LFTs are worsening somewhat. Has a SHIRA drain in place with serosanguineous fluid. Continue pain control. Tolerating diet. The patient eventually will need to follow-up with the physical science aide given findings of liver biopsy of chronic hepatitis of undetermined etiology. (3) HTN (hypertension) Current Visit: Yes Status: Acute Assessment and plan: Blood pressure stable. I am holding lisinopril. Qualifiers: Hypertension type: essential hypertension Qualified Code(s): I10 - Essential (primary) hypertension (4) Leukocytosis Current Visit: Yes Status: Acute Assessment and plan: Presumptive thought is that it is reactive after surgery. Started to come down on 12/20. Up to 17.6 today but afebrile. Been around 15k last couple of day. Going to start the patient on ceftiraxone. Repeat UA. ID is following but not available on weekend. Cultures are negative. Her UA was done on 12/17 showed positive nitrites and moderate leuk esterase. Qualifiers: Leukocytosis type: unspecified Qualified Code(s): D72.829 - Elevated white blood cell count, unspecified (5) Thrombocytopenia Current Visit: Yes Status: Resolved Assessment and plan: Resolved. (6) Diabetes mellitus Current Visit: No Status: Chronic Assessment and plan: Glucose is controlled again. Continue with home regimen of Humulin 70/30. She takes 46 units in the morning as well as 26 units at night. Continue Accu- Cheks. Continue insulin sliding scale. Qualifiers: Diabetes mellitus type: type 2 Diabetes mellitus manager intermediate insulin use: with longterm use Diabetes mellitus complication status: without complication Qualified Code(s): E11.9 - Type 2 diabetes mellitus without complications; Z79.4 - custodial (current) use of insulin; Z79.4 - custodial ( current) use of insulin; Z79.4 - custodial (current) use of insulin; Z79.4 - custodial (current) use of insulin (7) Acute blood loss as cause of postoperative anemia Current Visit: Yes Status: Acute Assessment and plan: This is expected postoperatively. Admission hemoglobin is 13.9. It is up to 11.4 today compared to 10.1 on 12/21. We will continue to monitor. (8) DVT prophylaxis Current Visit: Yes Status: Acute Assessment and plan: Heparin subcutaneous - Subjective Interval history: Patient was seen and examined. No acute events. Good urine output. No lasix yesterda. She is only net + about 3 L for the stay. She was about 8 L net + 8L since we started diuresis. Tolerating diet. No abdominal pain that is significant. She is on room air. Afebrile. Patient admitted with RUQ pain and found to have acute rosi. She is s/p Lap rosi by Dr. Nieto on 12/17. LFTs are starting to trend down but are up compared to yesterday this morning. She was noted to have worsening leukocytosis, worsening kidney function, and hyperglycemia with glucose in the 400s. She was transferred down to because of that. - Constitutional Vitals: Temp Pulse Resp BP Pulse Ox 97.8 F 80 16 145/60 99 12/22/17 06:35 12/22/17 06:35 12/22/17 06:35 12/22/17 06:35 12/22/17 06:35 General appearance: Present: cooperative, A&O X 3, pleasant, answers questions appropriately Exam: GEN: NAD CVS: RRR. S1, S2, No m/r/g RESP: CTAB ABD: Soft, mild right upper quadrant tenderness, ND, +BS a SHIRA drain noted with serosanguineous fluid EXT: Anasarca. 2+ DP. No rashes NEURO: Nonfocal Internal Medicine: Result - Labs CBC & Chem 7: 12/22/17 04:40 12/22/17 04:40 Labs: Short CBC 12/22/17 Range/Units 04:40 WBC 17.6 H (4.3-11.1) K/mcL Hgb 11.4 L (11.5-15.4) g/dL Hct 34.6 L (35.3-44.9) % Plt Count 161 (140-400) K/mcL Neutrophils # 7.9 (1.6-8.9) K/mcL BMP 12/22/17 04:40 Sodium 133 L Potassium 4.3 Chloride 102 Carbon Dioxide 24 BUN 33 H Creatinine 1.24 H Glucose 97 Calcium 8.4 L Liver Function 12/22/17 Range/Units 04:40 Total Bilirubin 5.4 H (0.3-1.0) mg/dL AST 199 H (13-39) Units/L ALT 147 H (7-52) Units/L Alkaline Phosphatase 580 H (34-104) Units/L Albumin 2.4 L (3.5-5.7) g/dL - ABG Interpretation ABG results: PT/INR, D-dimer PT 12.6 Seconds (9.4-12.1) H 12/16/17 05:31 - VTE Documentation of Mechanical Device: Intermittent pneumatic compression device Consult Discharge Plan - Plan Referrals: Tiago Scott MD [Primary Care Provider] - (WEB REQUEST SENT ON 12/21/17)
[2017-12-22] MEDS: cefTRIAXone 1,000 MG in Water for inj. (sterile) 20 ML 10 ML IVP SCH (11:44)
--- NOTE | 2017-12-22 12:19 | General Surgery Progress Note ---
Date of Encounter: 12/22/17 Time of Encounter: 11:55 Subjective Patient reports: no new complaints Narrative: General Surgery - POD #5 Patient indicates that she is feeling well; describes diminished upper abdominal pain which had previously been described as pain at the SHIRA drainage site Patient remains afebrile; most recently 97.7, pulse 83-90, respirations 16-17 , blood pressure 123/69 Lungs: Clear bilaterally no obvious abdominal pain with deep inspiration; SPO2 on room air 99-100% Abdomen: Soft, no obvious tenderness. Patient tolerating diet; no complaints of nausea or vomiting Rossy hepatic drainage continues to diminish - 700 mL for 12/20; 325 mL for 3; 300 mL so far today Laboratories: Leukocytosis has increased to 17.6; neutrophilia increased to 7.9% Hemoglobin 11.4, hematocrit 34.6 - increase following diuresis Hyponatremia persists but stable, 133; BUN 33, creatinine 1.24, eGFR 43 - renal status impaired but stable Total bilirubin 5.4, AST 199, ALT 147, alkaline phosphatase 580 - this values essentially stable from the day before. Impression: Postoperative day #5, status post laparoscopic cholecystectomy for acute and chronic cholecystitis Chronic hepatitis/cirrhosis of undetermined etiology - to be improving slowly Ascites secondary to the chronic hepatitis/cirrhosis also appears to be diminishing slowly Stable renal insufficiency Stable hyponatremia without obvious sequela Objective Vital Signs - Last 8 Hours Temp Pulse Resp BP Pulse Ox 12/22/17 10:23 97.7 F 90 17 123/69 100 12/22/17 06:35 97.8 F 80 16 145/60 99 12/22/17 04:20 98.2 F 83 16 137/76 97 Intake and Output 12/21/17 12/22/17 12/22/17 23:59 07:59 15:59 Intake Total 240 / 240 240 / 240 Output Total 100 / 100 50 / 50 750 / 750 Balance -100 / -100 190 / 190 -510 / -510 Intake: Oral 240 / 240 240 / 240 Output: Urine 500 / 500 Wound Drainage 100 / 100 50 / 50 250 / 250 Right Lower Abdomen 100 / 100 50 / 50 250 / 250 Other: Meal Cereal Breakfast Percent of Meal Consumed 100% Stool Size Large Stool Consistency loose loose Stool Color Brown # Voids 1 0 # Bowel Movements 1 1 1 Weight 93.44 kg Blood Glucose* 136 96 202 Patient Weight 12/22/17 23:59 Weight 93.44 kg - Labs 12/22/17 04:40 12/22/17 04:40 Diabetes panel 12/22/17 Range/Units 04:40 Sodium 133 L (136-145) mEq/L Potassium 4.3 (3.5-5.1) mEq/L Chloride 102 (98-107) mEq/L Carbon Dioxide 24 (23-29) mEq/L BUN 33 H (8-23) mg/dL Creatinine 1.24 H (0.60-1.20) mg/dL Glucose 97 (70-105) mg/dL Calcium 8.4 L (8.6-10.3) mg/dL AST 199 H (13-39) Units/L ALT 147 H (7-52) Units/L Alkaline Phosphatase 580 H (34-104) Units/L Albumin 2.4 L (3.5-5.7) g/dL Calcium panel 12/22/17 Range/Units 04:40 Calcium 8.4 L (8.6-10.3) mg/dL Albumin 2.4 L (3.5-5.7) g/dL Pituitary panel 12/22/17 Range/Units 04:40 Sodium 133 L (136-145) mEq/L Potassium 4.3 (3.5-5.1) mEq/L Chloride 102 (98-107) mEq/L Carbon Dioxide 24 (23-29) mEq/L BUN 33 H (8-23) mg/dL Creatinine 1.24 H (0.60-1.20) mg/dL Glucose 97 (70-105) mg/dL Calcium 8.4 L (8.6-10.3) mg/dL Adrenal panel 12/22/17 Range/Units 04:40 Sodium 133 L (136-145) mEq/L Potassium 4.3 (3.5-5.1) mEq/L Chloride 102 (98-107) mEq/L Carbon Dioxide 24 (23-29) mEq/L BUN 33 H (8-23) mg/dL Creatinine 1.24 H (0.60-1.20) mg/dL Glucose 97 (70-105) mg/dL Calcium 8.4 L (8.6-10.3) mg/dL Total Bilirubin 5.4 H (0.3-1.0) mg/dL AST 199 H (13-39) Units/L ALT 147 H (7-52) Units/L Alkaline Phosphatase 580 H (34-104) Units/L Albumin 2.4 L (3.5-5.7) g/dL - VTE Documentation of Mechanical Device: Intermittent pneumatic compression device Consult Discharge Plan - Plan Referrals: Tiago Scott MD [Primary Care Provider] - (WEB REQUEST SENT ON 12/21/17)
[2017-12-22 14:47] LABS: Bilirubin,Urine Small (Negative); Blood,Urine Negative (Negative); Clarity,Urine Cloudy (Clear); Color,Urine Orange (Yellow); Glucose,Urine (UA) 100 mg/dL (Normal); Ketones,Urine Negative (Negative); Leukocyte Esterase,Urine Small (Negative); Nitrite,Urine Negative (Negative); PH,Urine 5.5 pH Units (5.0-8.0); Protein,Urine Trace mg/dL (Neg-Trace); Specific Gravity,Urine 1.025 (1.010-1.025); Urobilinogen,Urine Normal (Normal)
[2017-12-22 14:50] LABS: Bacteria,Urine None Seen per hpf (None-Few); Hyaline Casts,Urine None Seen per lpf (None-Few); Squamous Epithelial Cell,Urine Many per lpf (None-Few)
[2017-12-22 15:07] LABS: RBC,Urine 0-3 per hpf (0-3); Yeast,Urine Few per hpf (None Seen)
[2017-12-23] MEDS: *HR* Heparin 5,000 UNIT/ML VIAL SQ SCH ×3 (04:36→21:41)
[2017-12-23 05:17] LABS: Basophils # 0.1 K/mcL (0.0-0.2); Basophils % 0.4 %; Eosinophils # 0.2 K/mcL (0.0-0.6); Eosinophils % 1.3 %; Hemoglobin 10.2 g/dL (11.5-15.4); Immature Granulocytes % 1.4 % (0-4); Lymphocytes # 9.2 K/mcL (0.6-4.6); Lymphocytes % 50.5 %; Mean Corpuscular HGB Conc 31.9 g/dL (31.6-35.5); Mean Corpuscular Hemoglobin 32.7 pg (28.0-33.3); Mean Corpuscular Volume 102.6 fL (83.0-100.0); Mean Platelet Volume 10.9 fL (9.4-12.4); Monocytes # 1.5 K/mcL (0.0-1.3); Nucleated Red Blood Cells 0.2 /100 WBC (0); Platelet Count 150 K/mcL (140-400); Red Blood Count 3.12 M/mcL (3.82-4.97); Red Cell Distribution Width 19.4 % (11.5-14.5); Segmented Neutrophils % 38.4 %
[2017-12-23 05:44] LABS: Alanine Aminotransferase 120 Units/L (7-52); Albumin/Globulin Ratio 0.6 (1.1-2.2); Alkaline Phosphatase 509 Units/L (34-104); Aspartate Amino Transferase 165 Units/L (13-39); BUN/Creatinine Ratio 27 (6-26); Bilirubin,Total 4.5 mg/dL (0.3-1.0); Blood Urea Nitrogen 28 mg/dL (8-23); Calcium 7.9 mg/dL (8.6-10.3); Carbon Dioxide 26 mEq/L (23-29); Chloride 108 mEq/L (98-107); Globulin 3.3 g/dL (2.4-3.5); Glucose 88 mg/dL (70-105); Magnesium 2.1 mg/dL (1.6-2.6); Osmolality,Calculated 289 (280-300); Potassium 4.4 mEq/L (3.5-5.1); Sodium 137 mEq/L (136-145); Total Protein 5.3 g/dL (6.4-8.9); eGFR For African Americans > 60 (> 60); eGFR For Non-African Americans 53 (> 60)
[2017-12-23 06:04] LABS: Anisocytosis 1+ (Not Present); Microcytosis Present (Not Present); Platelet Estimate Normal (Normal)
[2017-12-23] MEDS: cefTRIAXone 1,000 MG in Water for inj. (sterile) 20 ML 10 ML IVP SCH (09:15)
[2017-12-23] MEDS: Insulin LISPRO 300 UNITS/3 ML VIAL SQ SCH ×4 (09:17→21:40)
[2017-12-23] MEDS: Sennosides/Docusate Sodium TABLET PO SCH (09:18)
[2017-12-23] MEDS: Insulin NPH/REG 70/30 100 UNIT/ML (x5UNIT) SQ SCH ×2 (09:35→17:46)
--- NOTE | 2017-12-23 11:07 | Infectious Disease Progress No ---
Date of Encounter: 12/23/17 Time of Encounter: 11:04 - Assessment and Plan (1) Sepsis Current Visit: Yes Status: Acute The patient had two SIRS criteria on admission. Likely secondary to cholecystitis. Improved clinically. WBC back up over the weekend. Clinically, the patient is improved. She has been afebrile. She was tachycardic post-op, but this has resolved. She has no other SIRS criteria. Qualifiers: Sepsis type: sepsis due to unspecified organism Qualified Code(s): A41.9 - Sepsis, unspecified organism (2) Leukocytosis Current Visit: Yes Status: Acute The patient has had leukocytosis since admission, initially with monocytosis, but now with lymphocytic predominance. Likely secondary to cholecystitis and chronic hepatitis. Worsening likely secondary to surgery. No left shift or bandemia noted. Review of her previous labs reveal that the patient had unexplained leukocytosis back in 2014 as well. The patient has no other SIRS criteria. Repeat CBC in the morning. If the patient becomes febrile, recommend getting blood cultures x 2 sets. Get peripheral smear. Antibiotics were started by the primary team over the weekend. Not sure what we are treating. Recommend continued observation off antibiotics. Qualifiers: Leukocytosis type: unspecified Qualified Code(s): D72.829 - Elevated white blood cell count, unspecified (3) Cholecystitis Current Visit: Yes Status: Acute Likely secondary to cholelithiasis. Causative organism unclear, but likely gram negative. Gallbladder UTS showed gallstones vs. gallbladder polyp. MRCP showed cholelithiasis and findings suggestive of acute cholecystitis and mild dilatation of the 2nd and 3rd segments of the duodenum with adjacent inflammatory stranding, likely related to the cholelithiais/cholecystitis or duodenitis. It did not show choledocolithiasis or biliary obstruction, but did show mild to moderate hepatic steatosis. General surgery consulted. Due to persistently elevated LFTs and leukocytosis, the patient was taken to the OR 12/17/17 and had a laparoscopic cholecystectomy by Dr. Nieto. Clinically, the patient has improved. LFTs and bilirubin levels are improving. Able to tolerate regular diet. Wound care, drain management, and activity restrictions per the general surgery team. Pain management per the primary and surgery teams. (4) JONATHON (acute kidney injury) Current Visit: Yes Status: Resolved Etiology unclear. Resolved. The patient is positive about 8 liters over the course of her hospital stay. Urine output adequate. Continue to trend. Strict I's and O's. Dose-adjust antibiotics. Avoid nephrotoxins. (5) Chronic hepatitis Current Visit: Yes Status: Acute Etiology unclear, but possibly secondary to hepatic steatosis Patient reports mildly chronically elevated AST dating back to 2014 with elevated ALT and Alk Phos dating back to 2017. RUQ UTS done in 11/2015 showed gallstones, but no other abnormality. Status post liver biopsy 12/13/17 that showed a chronic hepatitis pattern of injury with moderate piecemeal necrosis and moderate lobular inflammation and septal fibrosis with siderosis grade 3 or 4, but was negative for malignancy. Hepatitis profile negative. Anti-mitochondrial antibody normal. JEFFERY normal. MELD score 23. GI consulted and following and plan to see the patient as an outpatient. Will check Hepatitis E antibody IgG and IgM. (6) Cholelithiasis Current Visit: Yes Status: Acute Gallbladder UTS showed gallstones vs. gallbladder polyp. No gallstones were noted in the gallbladder after its removal. Status post lap rosi 12/17/[address] Nieto. Qualifiers: Cholelithiasis location: gallbladder Cholecystitis presence: with cholecystitis Cholecystitis acuity: acute and chronic Biliary obstruction: without biliary obstruction Qualified Code(s): K80.12 - Calculus of gallbladder with acute and chronic cholecystitis without obstruction (7) Conjugated hyperbilirubinemia Current Visit: Yes Status: Acute Presented with T Bili of 9.4 with jaundice. Likely multifactorial: chronic hepatitis + cholecystitis. MRCP did not show any ductal dilatation or obstruction. Improved since having her gallbladder removed 12/17/17. Continue to trend. (8) Elevated LFTs Current Visit: Yes Status: Acute Likely multifactorial: cholecystitis + chronic hepatitis. Admitting labs: AST 358, ALT 218, AP 826. Improved since gallbladder removed 12/18/17. Continue to trend. (9) Thrombocytopenia Current Visit: Yes Status: Resolved Etiology unclear: Lovenox vs. infection vs. other. No acute bleeding noted on exam. Resolved. Continue trend. (10) Hyponatremia Current Visit: Yes Status: Acute (11) HTN (hypertension) Current Visit: Yes Status: Acute Qualifiers: Hypertension type: essential hypertension Qualified Code(s): I10 - Essential (primary) hypertension (12) Diabetes mellitus Current Visit: No Status: Chronic Recommend aggressive glucose monitoring and control to promote wound healing and prevent wound infection. Management per the primary team. Qualifiers: Diabetes mellitus type: type 2 Diabetes mellitus snf insulin use: with long term care phlebotomist use Diabetes mellitus complication status: without complication Qualified Code(s): E11.9 - Type 2 diabetes mellitus without complications; Z79.4 - FPC (current) use of insulin; Z79.4 - FPC ( current) use of insulin; Z79.4 - long term care phlebotomist (current) use of insulin; Z79.4 - FPC (current) use of insulin - Subjective Interval history: Patient seen and examined sitting up in the bedside chair. Weekend notes reviewed. No acute events noted overnight. Patient states she feels well today, but is still having some soreness around the SHIRA drain. States drainage from SHIRA drain has improved. Denies fevers, chills, or rigors. Denies headache, neck pain , or dizziness. Denies congestion, earache, sore throat, or nasal drainage. Denies chest pain, shortness of breath, or cough. Denies nausea, vomiting, or diarrhea. She reports loose stool a couple of days ago after she took a laxative , but that has resolved. Reports BM yesterday. Reports mild post-op pain, worse with movement and mainly at the drain site. Denies urinary complaints and states her appetite is good. Denies oral thrush or skin lesions. Infect Dis PN-Objective Data - Labs CBC & Chem 7: 12/23/17 04:50 12/23/17 04:50 Labs: Laboratory Results - last 24 hr 12/21/17 12/21/17 12/21/17 16:18 19:45 23:41 WBC RBC Hgb Hct MCV MCH MCHC RDW Plt Count MPV Immature Gran % Seg Neutrophils % Lymphocytes % Monocytes % Eosinophils % Basophils % Neutrophils # Lymphocytes # Monocytes # Eosinophils # Basophils # Nucleated RBCs/100 WBC Platelet Estimate Anisocytosis Microcytosis Sodium Potassium Chloride Carbon Dioxide BUN Creatinine Est GFR ( Amer) Est GFR (Non-Af Amer) BUN/Creatinine Ratio Glucose POC Glucose 269 H 136 H 57 L Calculated Osmolality Calcium Magnesium Total Bilirubin AST ALT Alkaline Phosphatase Serum Total Protein Albumin Globulin Albumin/Globulin Ratio Urine Color Urine Clarity Urine pH Ur Specific [place] Urine Protein Urine Glucose (UA) Urine Ketones Urine Blood Urine Nitrite Urine Bilirubin Urine Urobilinogen Ur Leukocyte Esterase Urine Microscopic RBC Urine Microscopic WBC Ur Squamous Epith Cells Urine Bacteria Hyaline Casts Urine Yeast Ur Culture Indicated? 12/22/17 12/22/17 12/22/17 00:36 07:58 11:54 WBC RBC Hgb Hct MCV MCH MCHC RDW Plt Count MPV Immature Gran % Seg Neutrophils % Lymphocytes % Monocytes % Eosinophils % Basophils % Neutrophils # Lymphocytes # Monocytes # Eosinophils # Basophils # Nucleated RBCs/100 WBC Platelet Estimate Anisocytosis Microcytosis Sodium Potassium Chloride Carbon Dioxide BUN Creatinine Est GFR ( Amer) Est GFR (Non-Af Amer) BUN/Creatinine Ratio Glucose POC Glucose 122 H 96 H 202 H Calculated Osmolality Calcium Magnesium Total Bilirubin AST ALT Alkaline Phosphatase Serum Total Protein Albumin Globulin Albumin/Globulin Ratio Urine Color Urine Clarity Urine pH Ur Specific [place] Urine Protein Urine Glucose (UA) Urine Ketones Urine Blood Urine Nitrite Urine Bilirubin Urine Urobilinogen Ur Leukocyte Esterase Urine Microscopic RBC Urine Microscopic WBC Ur Squamous Epith Cells Urine Bacteria Hyaline Casts Urine Yeast Ur Culture Indicated? 12/22/17 12/22/17 12/22/17 14:29 15:51 20:31 WBC RBC Hgb Hct MCV MCH MCHC RDW Plt Count MPV Immature Gran % Seg Neutrophils % Lymphocytes % Monocytes % Eosinophils % Basophils % Neutrophils # Lymphocytes # Monocytes # Eosinophils # Basophils # Nucleated RBCs/100 WBC Platelet Estimate Anisocytosis Microcytosis Sodium Potassium Chloride Carbon Dioxide BUN Creatinine Est GFR ( Amer) Est GFR (Non-Af Amer) BUN/Creatinine Ratio Glucose POC Glucose 128 H 189 H Calculated Osmolality Calcium Magnesium Total Bilirubin AST ALT Alkaline Phosphatase Serum Total Protein Albumin Globulin Albumin/Globulin Ratio Urine Color [place] A Urine Clarity Cloudy A Urine pH 5.5 Ur Specific [place] 1.025 Urine Protein Trace Urine Glucose (UA) 100 H Urine Ketones Negative Urine Blood Negative Urine Nitrite Negative Urine Bilirubin Small H Urine Urobilinogen Normal Ur Leukocyte Esterase Small H Urine Microscopic RBC 0-3 Urine Microscopic WBC 3-5 H Ur Squamous Epith Cells Many H Urine Bacteria None Seen Hyaline Casts None Seen Urine Yeast Few H Ur Culture Indicated? NO. 12/23/17 12/23/17 12/23/17 00:08 04:50 04:50 WBC 18.2 H RBC 3.12 L Hgb 10.2 L Hct 32.0 L MCV 102.6 H MCH 32.7 MCHC 31.9 RDW 19.4 H Plt Count 150 MPV 10.9 Immature Gran % 1.4 Seg Neutrophils % 38.4 Lymphocytes % 50.5 Monocytes % 8.0 Eosinophils % 1.3 Basophils % 0.4 Neutrophils # 7.0 Lymphocytes # 9.2 H Monocytes # 1.5 H Eosinophils # 0.2 Basophils # 0.1 Nucleated RBCs/100 WBC 0.2 H Platelet Estimate Normal Anisocytosis 1+ A Microcytosis Present A Sodium 137 Potassium 4.4 Chloride 108 H Carbon Dioxide 26 BUN 28 H Creatinine 1.02 Est GFR ( Amer) > 60 Est GFR (Non-Af Amer) 53 L BUN/Creatinine Ratio 27 H Glucose 88 POC Glucose 121 H Calculated Osmolality 289 Calcium 7.9 L Magnesium 2.1 Total Bilirubin 4.5 H AST 165 H ALT 120 H Alkaline Phosphatase 509 H Serum Total Protein 5.3 L Albumin 2.0 L Globulin 3.3 Albumin/Globulin Ratio 0.6 L Urine Color Urine Clarity Urine pH Ur Specific [place] Urine Protein Urine Glucose (UA) Urine Ketones Urine Blood Urine Nitrite Urine Bilirubin Urine Urobilinogen Ur Leukocyte Esterase Urine Microscopic RBC Urine Microscopic WBC Ur Squamous Epith Cells Urine Bacteria Hyaline Casts Urine Yeast Ur Culture Indicated? 12/23/17 07:16 WBC RBC Hgb Hct MCV MCH MCHC RDW Plt Count MPV Immature Gran % Seg Neutrophils % Lymphocytes % Monocytes % Eosinophils % Basophils % Neutrophils # Lymphocytes # Monocytes # Eosinophils # Basophils # Nucleated RBCs/100 WBC Platelet Estimate Anisocytosis Microcytosis Sodium Potassium Chloride Carbon Dioxide BUN Creatinine Est GFR ( Amer) Est GFR (Non-Af Amer) BUN/Creatinine Ratio Glucose POC Glucose 83 Calculated Osmolality Calcium Magnesium Total Bilirubin AST ALT Alkaline Phosphatase Serum Total Protein Albumin Globulin Albumin/Globulin Ratio Urine Color Urine Clarity Urine pH Ur Specific [place] Urine Protein Urine Glucose (UA) Urine Ketones Urine Blood Urine Nitrite Urine Bilirubin Urine Urobilinogen Ur Leukocyte Esterase Urine Microscopic RBC Urine Microscopic WBC Ur Squamous Epith Cells Urine Bacteria Hyaline Casts Urine Yeast Ur Culture Indicated? Cultures: Serology 12/22/17 12/17/17 12/11/17 Range/Units 14:29 17:00 14:40 Urine Color [place] A [place] A (Yellow) Urine Clarity Cloudy A Cloudy A (Clear) Urine pH 5.5 5.5 (5.0-8.0) pH Units Ur Specific [place] 1.025 > 1.030 H (1.010-1.025) Urine Protein Trace 30 H (Neg-Trace) mg/dL Urine Glucose (UA) 100 H 500 H (Normal) mg/dL Urine Ketones Negative 15 H (Negative) mg/dL Urine Blood Negative Moderate H (Negative) Urine Nitrite Negative Positive A (Negative) Urine Bilirubin Small H Large H (Negative) Urine Urobilinogen Normal Normal (Normal) mg/dL Ur Leukocyte Esterase Small H Moderate H (Negative) Urine Microscopic RBC 0-3 5-15 H (0-3) per hpf Urine Microscopic WBC 3-5 H 15-30 H (0-3) per hpf Ur Squamous Epith Cells Many H Many H (None-Few) per lpf Urine Bacteria None Seen None Seen (None-Few) per hpf Hyaline Casts None Seen (None-Few) per lpf Urine Yeast Few H Many H (None Seen) per hpf Ur Culture Indicated? NO. NO. (NO) Hepatitis A IgM Ab Nonreactive (Nonreactive) Hep Bs Antigen Nonreactive (Nonreactive) Hep B Core IgM Ab Nonreactive (Nonreactive) Hepatitis C Ab Screen Nonreactive (Nonreactive) Exam - Constitutional Vitals: Temp Pulse Resp BP Pulse Ox 97.8 F 87 17 150/67 97 12/23/17 07:17 12/23/17 07:17 12/23/17 07:17 12/23/17 07:17 12/23/17 07:17 General appearance: average body habitus, cooperative, no acute distress - Head Head exam: Present: atraumatic, normal inspection, normocephalic - Eye Eye exam: Present: EOMI, normal appearance, PERRL, sclera anicteric Pupils: Present: normal accommodation - ENT ENT exam: Present: mucous membranes moist - Neck Neck exam: Present: normal inspection - Respiratory Respiratory exam: Present: CTAB. Absent: rales, respiratory distress, rhonchi, wheezes - Cardiovascular Cardiovascular exam: Present: RRR, +S1, +S2 - GI/Abdominal GI/Abdominal exam: Present: normal bowel sounds, soft, tenderness (RUQ). Absent : distended Additional comments: Surgical stab incisions x 4 with dermabond intact and wound edges well- approximated. SHIRA drain noted to the RUQ with small amount of serous drainage noted. - Extremities Exam Extremities exam: Present: pedal edema (Trace BLE). Absent: joint swelling, tenderness - Neurological Exam Neurological exam: Present: alert, oriented X3, no focal deficits - Psychiatric Psychiatric exam: Present: normal affect, normal mood - Skin Skin exam: Present: dry, intact, normal color, warm - VTE Documentation of Mechanical Device: Intermittent pneumatic compression device Consult Discharge Plan - Plan Referrals: Tiago Scott MD [Primary Care Provider] - (WEB REQUEST SENT ON 12/21/17) - Attending Attestation I examined this patient and my medical decision-making was reviewed with the Resident Physician. I agree with the documented findings, disposition and treatment plan as described except to the extent set forth below. Patient is clinically doing well. She has no complaints other than being sore from surgical site. Patient denies any URI symptoms no nausea or vomiting good appetite as good bowel movements no diarrhea. No urinary symptoms. At this point I spoke with the GI team to reevaluate Pathology report from surgery noted We will check viral hepatitis panel including hepatitis E, F, G
--- NOTE | 2017-12-23 11:50 | Internal Med Progress Note ---
Date of Encounter: 12/23/17 Time of Encounter: 11:48 - Assessment and plan (1) Goals of care, counseling/discussion Current Visit: Yes Status: Acute Assessment and plan: Spoke to Dr. Nieto who would like to hold the patient at least another day given elevation in her white count. We will not discharge until also services are clearing the patient for discharge. (2) JONATHON (acute kidney injury) Current Visit: Yes Status: Resolved Assessment and plan: Diuresed well this admission. I would like to diurese her more however given her kidney function I felt on diuresis the last couple days. Her creatinine is better today. We will continue to monitor without diuresing. I believe she will be able to self diurese as she ambulates more. Creatinine 1.05 on admission and she is at 1.02 today. Will hold lasix again. May need outpatient labs at [place]. Check labs in the morning. Avoid nephrotoxins. (3) Cholecystitis Current Visit: Yes Status: Acute Assessment and plan: Status post laparoscopic cholecystectomy on 12/[address] Nieto. We will leave surgical management to him. LFTs are improving. Has a SHIRA drain in place with serosanguineous fluid. Continue pain control. Tolerating diet. The patient eventually will need to follow-up with the gas plumbing inspector given findings of liver biopsy of chronic hepatitis of undetermined etiology. (4) HTN (hypertension) Current Visit: Yes Status: Acute Assessment and plan: Blood pressure stable. I am holding lisinopril for now. Qualifiers: Hypertension type: essential hypertension Qualified Code(s): I10 - Essential (primary) hypertension (5) Leukocytosis Current Visit: Yes Status: Acute Assessment and plan: Presumptive thought is that it is reactive after surgery. Worse today. Afebrile. Been around 15k last couple of days. Started the patient on empiric ceftriaxone however her cultures have been negative. She has a dirty urine but she has no symptoms. Will stop antibiotics as ID do not seem to be in agreement with starting antibiotics. Her white count went up despite antibiotics. Although this was only one dose. Her UA was done on 12/17 showed positive nitrites and moderate leuk esterase. Qualifiers: Leukocytosis type: unspecified Qualified Code(s): D72.829 - Elevated white blood cell count, unspecified (6) Thrombocytopenia Current Visit: Yes Status: Resolved Assessment and plan: Resolved. (7) Diabetes mellitus Current Visit: No Status: Chronic Assessment and plan: Glucose is controlled again. Continue with home regimen of Humulin 70/30. She takes 46 units in the morning as well as 26 units at night. Continue Accu- Cheks. Continue insulin sliding scale. Qualifiers: Diabetes mellitus type: type 2 Diabetes mellitus intermodal customer service insulin use: with intermodal customer service use Diabetes mellitus complication status: without complication Qualified Code(s): E11.9 - Type 2 diabetes mellitus without complications; Z79.4 - USP (current) use of insulin; Z79.4 - USP ( current) use of insulin; Z79.4 - vermin exterminator (current) use of insulin; Z79.4 - vermin exterminator (current) use of insulin (8) Acute blood loss as cause of postoperative anemia Current Visit: Yes Status: Acute Assessment and plan: This is expected postoperatively. Admission hemoglobin is 13.9. It is at 10.2 today . We will continue to monitor. (9) DVT prophylaxis Current Visit: Yes Status: Acute Assessment and plan: Heparin subcutaneous - Subjective Interval history: Patient was seen and examined. No acute events. Remains afebrile. Leukocytosis worse today. Good urine output. No lasix last 2 days. Tolerating diet. No abdominal pain that is significant. She is on room air. Afebrile. Patient admitted with RUQ pain and found to have acute rosi. She is s/p Lap rosi by Dr. Nieto on 12/17. LFTs are starting to trend down but are up compared to yesterday this morning. She was noted to have worsening leukocytosis, worsening kidney function, and hyperglycemia with glucose in the 400s. She was transferred down to because of that. - Constitutional Vitals: Temp Pulse Resp BP Pulse Ox 97.8 F 87 17 150/67 97 12/23/17 07:17 12/23/17 07:17 12/23/17 07:17 12/23/17 07:17 12/23/17 07:17 General appearance: Present: cooperative, A&O X 3, pleasant, answers questions appropriately Internal Medicine: Result - Labs CBC & Chem 7: 12/23/17 04:50 12/23/17 04:50 Labs: Short CBC 12/23/17 Range/Units 04:50 WBC 18.2 H (4.3-11.1) K/mcL Hgb 10.2 L (11.5-15.4) g/dL Hct 32.0 L (35.3-44.9) % Plt Count 150 (140-400) K/mcL Neutrophils # 7.0 (1.6-8.9) K/mcL BMP 12/23/17 04:50 Sodium 137 Potassium 4.4 Chloride 108 H Carbon Dioxide 26 BUN 28 H Creatinine 1.02 Glucose 88 Calcium 7.9 L Liver Function 12/23/17 Range/Units 04:50 Total Bilirubin 4.5 H (0.3-1.0) mg/dL AST 165 H (13-39) Units/L ALT 120 H (7-52) Units/L Alkaline Phosphatase 509 H (34-104) Units/L Albumin 2.0 L (3.5-5.7) g/dL Urine 12/22/17 Range/Units 14:29 Urine Color [place] A (Yellow) Urine Clarity Cloudy A (Clear) Urine pH 5.5 (5.0-8.0) pH Units Ur Specific [place] 1.025 (1.010-1.025) Urine Protein Trace (Neg-Trace) mg/dL Urine Glucose (UA) 100 H (Normal) mg/dL - ABG Interpretation ABG results: PT/INR, D-dimer PT 12.6 Seconds (9.4-12.1) H 12/16/17 05:31 - VTE Documentation of Mechanical Device: Intermittent pneumatic compression device Consult Discharge Plan - Plan Referrals: Tiago Scott MD [Primary Care Provider] - (WEB REQUEST SENT ON 12/21/17)
--- NOTE | 2017-12-23 12:08 | General Surgery Progress Note ---
Date of Encounter: 12/23/17 Time of Encounter: 11:20 Subjective Patient reports: no new complaints Narrative: General Surgery - POD # 6 Patient feeling well, voicing no complaints. No complaints of upper abdominal pain Patient anxious to be discharged home however leukocytosis continues to worsen Despite increasing leukocytosis, patient remains afebrile, currently 98.9, hemodynamically stable with pulse 89, respirations 17, blood pressure 153/65. Lungs: Clear, no abdominal pain on deep inspiration Abdomen: Soft, nontender. Active bowel sounds Perihepatic drainage- 325 mL for 12/21/17; 350 mL for 12/22/17; 23 mL so far today. [place] empty to my examination Labs: White count has increased 18.2 as noted; hemoglobin 10.2 with hematocrit 32.0. Platelet count 150,000. Lymphocytes have increased to 9.2%, monocytes 1.5% Sodium was corrected to 137, potassium 4.4, chloride 108, BUN 28, creatinine 1.02 (BUN/creatinine markedly improved) Total bilirubin 4.5, AST 165, ALT 120, alkaline phosphatase 509 - all improved Impression: Postoperative day #6, status post laparoscopic cholecystectomy for acute and chronic cholecystitis - doing well postop Chronic hepatitis/cirrhosis of undetermined etiology - continues to improve Ascites secondary to the chronic hepatitis/cirrhosis also appears improved/ diminished Renal status improved Hyponatremia corrected Progressive leukocytosis of undetermined etiology; continue to monitor. Discussed with Dr Florentino Objective Vital Signs - Last 8 Hours Temp Pulse Resp BP Pulse Ox 12/23/17 11:51 98.9 F 89 17 153/65 96 12/23/17 07:17 97.8 F 87 17 150/67 97 Intake and Output 12/22/17 12/23/17 12/23/17 23:59 07:59 15:59 Intake Total 120 / 120 120 / 120 360 / 360 Output Total 50 / 50 550 / 550 Balance 70 / 70 -430 / -430 337 / 337 Intake: Oral 120 / 120 120 / 120 360 / 360 Output: Urine 550 / 550 Wound Drainage 50 / 50 Right Lower Abdomen 50 / 50 Other: Meal Breakfast Percent of Meal Consumed 100% # Voids 1 1 Blood Glucose* 189 83 278 - Labs 12/23/17 04:50 12/23/17 04:50 Diabetes panel 12/23/17 Range/Units 04:50 Sodium 137 (136-145) mEq/L Potassium 4.4 (3.5-5.1) mEq/L Chloride 108 H (98-107) mEq/L Carbon Dioxide 26 (23-29) mEq/L BUN 28 H (8-23) mg/dL Creatinine 1.02 (0.60-1.20) mg/dL Glucose 88 (70-105) mg/dL Calcium 7.9 L (8.6-10.3) mg/dL AST 165 H (13-39) Units/L ALT 120 H (7-52) Units/L Alkaline Phosphatase 509 H (34-104) Units/L Albumin 2.0 L (3.5-5.7) g/dL Calcium panel 12/23/17 Range/Units 04:50 Calcium 7.9 L (8.6-10.3) mg/dL Albumin 2.0 L (3.5-5.7) g/dL Pituitary panel 12/23/17 Range/Units 04:50 Sodium 137 (136-145) mEq/L Potassium 4.4 (3.5-5.1) mEq/L Chloride 108 H (98-107) mEq/L Carbon Dioxide 26 (23-29) mEq/L BUN 28 H (8-23) mg/dL Creatinine 1.02 (0.60-1.20) mg/dL Glucose 88 (70-105) mg/dL Calcium 7.9 L (8.6-10.3) mg/dL Adrenal panel 12/23/17 Range/Units 04:50 Sodium 137 (136-145) mEq/L Potassium 4.4 (3.5-5.1) mEq/L Chloride 108 H (98-107) mEq/L Carbon Dioxide 26 (23-29) mEq/L BUN 28 H (8-23) mg/dL Creatinine 1.02 (0.60-1.20) mg/dL Glucose 88 (70-105) mg/dL Calcium 7.9 L (8.6-10.3) mg/dL Total Bilirubin 4.5 H (0.3-1.0) mg/dL AST 165 H (13-39) Units/L ALT 120 H (7-52) Units/L Alkaline Phosphatase 509 H (34-104) Units/L Albumin 2.0 L (3.5-5.7) g/dL - VTE Documentation of Mechanical Device: Intermittent pneumatic compression device Consult Discharge Plan - Plan Referrals: Tiago Scott MD [Primary Care Provider] - (WEB REQUEST SENT ON 12/21/17)
--- NOTE | 2017-12-23 15:29 | Gastroenterology Progress Note ---
<Austin Brooke - Last Filed: 12/23/17 15:29> Date of Encounter: 12/23/17 Time of Encounter: 15:25 - Assessment and plan (1) Conjugated hyperbilirubinemia Current Visit: Yes Status: Acute Assessment and plan: Patient with 8.3 total bilirubin level (direct bilirubin 5.1, indirect bilirubin 3.2) on admission Liver biopsy revealed chronic hepatitis pattern of injury with moderate piecemeal necrosis and moderate lobular inflammation (hepatocellular damage), and septal fibrosis with portal-portal fibrous septa with architectural distortion (severe fibrosis). Siderosis Grade 3 of 4. Negative for malignancy. Patient underwent laparoscopic cholecystectomy Total bilirubin and LFTs remain elevated but are improving Given negative JEFFERY, negative Anti-mitochondrial antibody, and negative liver biopsy results for primary biliary cholangitis, patient's LFT elevation is consistent with drug induced hepatitis s/p outpatient course of Cipro for recurrent UTI Patient has persistent leukocytosis s/p cholecystectomy, agree with discontinuing antibiotics and Ursodiol at this time and checking viral hepatitis panel including Hepatitis E, F, G Patient is stable for outpatient management from a GI perspective Please scheduled follow up appointment in GI clinic within 1-2 weeks upon discharge - Time Spent With Patient Total time spent is greater than 50% in coordination of care (as documented) at patient's floor/unit and/or counseling patient: - Subjective Interval history: Patient seen and examined sitting up in the bedside chair. Patient denies any new c/o and reports improving post-op pain. She denies fever, chills, worsening abd pain, N/V/D/C and is tolerating PO intake without difficulty. She reports no further drainage from SHIRA drain. - Constitutional Vitals: Temp Pulse Resp BP Pulse Ox 98.9 F 89 17 153/65 96 12/23/17 11:51 12/23/17 11:51 12/23/17 11:51 12/23/17 11:51 12/23/17 11:51 General appearance: Present: cooperative, A&O X 3, no acute distress, answers questions appropriately - Head Head exam: Present: atraumatic, normocephalic - Eye Eye exam: Present: normal appearance, scleral icterus (improving) - Neck Neck exam general surgery: Present: normal inspection, trachea midline - Respiratory Respiratory exam: Present: CTAB - Cardiovascular Cardiovascular exam: Present: RRR, +S1, +S2 - GI/Abdominal GI/Abdominal exam: Present: normal bowel sounds, soft, tenderness (RUQ at SHIRA site, surgical dressing C/D/I), no peritoneal signs. Absent: distended, guarding, hepatomegaly - Rectal Rectal exam: Present: deferred - Extremities Exam Extremities exam: Present: warm - Neurological Exam Neurological exam: Present: no focal deficits - Psychiatric Psychiatric exam: Present: normal affect, normal mood - Skin Skin exam: Present: dry, intact, normal color (decreased jaundice), warm Results - Labs CBC & Chem 7: 12/23/17 04:50 12/23/17 04:50 Labs: Last Result Calcium 7.9 mg/dL (8.6-10.3) L 12/23/17 04:50 Triglycerides 99 mg/dL (< 150) 12/11/17 06:12 Entire Visit Hgb 10.2 g/dL (11.5-15.4) L 12/23/17 04:50 Hct 32.0 % (35.3-44.9) L 12/23/17 04:50 PT 12.6 Seconds (9.4-12.1) H 12/16/17 05:31 Total Bilirubin 4.5 mg/dL (0.3-1.0) H 12/23/17 04:50 AST 165 Units/L (13-39) H 12/23/17 04:50 ALT 120 Units/L (7-52) H 12/23/17 04:50 Amylase 43 Units/L (29-103) 12/10/17 17:10 Lipase 24 Units/L (11-82) 12/10/17 17:10 - ABG ABG results: PT/INR, D-dimer PT 12.6 Seconds (9.4-12.1) H 12/16/17 05:31 - VTE Documentation of Mechanical Device: Intermittent pneumatic compression device Consult Discharge Plan - Plan Referrals: Tiago Scott MD [Primary Care Provider] - (WEB REQUEST SENT ON 12/21/17) <Josephine Garza - Last Filed: 12/23/17 17:47> Date of Encounter: 12/23/17 - Time Spent With Patient Total time spent is greater than 50% in coordination of care (as documented) at patient's floor/unit and/or counseling patient: - Constitutional Vitals: Temp Pulse Resp BP Pulse Ox 98.2 F 97 17 153/71 98 12/23/17 16:59 12/23/17 16:59 12/23/17 16:59 12/23/17 16:59 12/23/17 16:59 Results - Labs CBC & Chem 7: 12/23/17 04:50 12/23/17 04:50 Labs: Last Result Calcium 7.9 mg/dL (8.6-10.3) L 12/23/17 04:50 Triglycerides 99 mg/dL (< 150) 12/11/17 06:12 Entire Visit Hgb 10.2 g/dL (11.5-15.4) L 12/23/17 04:50 Hct 32.0 % (35.3-44.9) L 12/23/17 04:50 PT 12.6 Seconds (9.4-12.1) H 12/16/17 05:31 Total Bilirubin 4.5 mg/dL (0.3-1.0) H 12/23/17 04:50 AST 165 Units/L (13-39) H 12/23/17 04:50 ALT 120 Units/L (7-52) H 12/23/17 04:50 Amylase 43 Units/L (29-103) 12/10/17 17:10 Lipase 24 Units/L (11-82) 12/10/17 17:10 - ABG ABG results: PT/INR, D-dimer PT 12.6 Seconds (9.4-12.1) H 12/16/17 05:31 - Attending Attestation I have personally performed a face to face evaluation on this patient. I have reviewed and agree with the care plan. History and Exam by me shows: Patient with abnormal LFTs with cholestasis most probably due to medication induced. Currently not on ursodiol. LFTs are slowly improving. Follow-up LFTs as an outpatient with a follow-up with GI.
[2017-12-24] MEDS: *HR* Heparin 5,000 UNIT/ML VIAL SQ SCH ×2 (06:08→14:46)
[2017-12-24] MEDS: Insulin LISPRO 300 UNITS/3 ML VIAL SQ SCH ×2 (07:08→11:57)
[2017-12-24] MEDS: Sennosides/Docusate Sodium TABLET PO SCH (07:36)
[2017-12-24] MEDS: Insulin NPH/REG 70/30 100 UNIT/ML (x5UNIT) SQ SCH (07:38)
--- NOTE | 2017-12-24 10:23 | Infectious Disease Progress No ---
Date of Encounter: 12/24/17 Time of Encounter: 10:21 - Assessment and Plan (1) Sepsis Current Visit: Yes Status: Acute The patient had two SIRS criteria on admission. Likely secondary to cholecystitis. Improved clinically. WBC back up over the weekend. Clinically, the patient is improved. She has been afebrile. She was tachycardic post-op, but this has resolved. She has no other SIRS criteria. Re-check labs. Qualifiers: Sepsis type: sepsis due to unspecified organism Qualified Code(s): A41.9 - Sepsis, unspecified organism (2) Leukocytosis Current Visit: Yes Status: Acute The patient has had leukocytosis since admission, initially with monocytosis, but now with lymphocytic predominance. Likely secondary to cholecystitis and chronic hepatitis. Worsening likely secondary to surgery. No left shift or bandemia noted. Review of her previous labs reveal that the patient had unexplained leukocytosis back in 2014 as well. The patient has no other SIRS criteria. Repeat CBC. If the patient becomes febrile, recommend getting blood cultures x 2 sets. Peripheral smear is pending. Recommend continued observation off antibiotics. Qualifiers: Leukocytosis type: unspecified Qualified Code(s): D72.829 - Elevated white blood cell count, unspecified (3) Cholecystitis Current Visit: Yes Status: Resolved Likely secondary to cholelithiasis. Causative organism unclear, but likely gram negative. Gallbladder UTS showed gallstones vs. gallbladder polyp. MRCP showed cholelithiasis and findings suggestive of acute cholecystitis and mild dilatation of the 2nd and 3rd segments of the duodenum with adjacent inflammatory stranding, likely related to the cholelithiais/cholecystitis or duodenitis. It did not show choledocolithiasis or biliary obstruction, but did show mild to moderate hepatic steatosis. General surgery consulted. Due to persistently elevated LFTs and leukocytosis, the patient was taken to the OR 12/17/17 and had a laparoscopic cholecystectomy by Dr. Nieto. Clinically, the patient has improved. LFTs and bilirubin levels are improving. Able to tolerate regular diet. Wound care, drain management, and activity restrictions per the general surgery team. Pain management per the primary and surgery teams. (4) JONATHON (acute kidney injury) Current Visit: Yes Status: Resolved Etiology unclear. Resolved. The patient is positive about 8 liters over the course of her hospital stay. Urine output adequate. Continue to trend. Strict I's and O's. Dose-adjust antibiotics. Avoid nephrotoxins. (5) Chronic hepatitis Current Visit: Yes Status: Acute Etiology unclear, but possibly secondary to hepatic steatosis Patient reports mildly chronically elevated AST dating back to 2014 with elevated ALT and Alk Phos dating back to 2017. RUQ UTS done in 11/2015 showed gallstones, but no other abnormality. Status post liver biopsy 12/13/17 that showed a chronic hepatitis pattern of injury with moderate piecemeal necrosis and moderate lobular inflammation and septal fibrosis with siderosis grade 3 or 4, but was negative for malignancy. Hepatitis profile negative. Anti-mitochondrial antibody normal. JEFFERY normal. MELD score 23. GI consulted and following and plan to see the patient as an outpatient. Will check Hepatitis E antibody IgG and IgM. Discussed hepatitis G testing with lab and unable to perform. (6) Cholelithiasis Current Visit: Yes Status: Acute Gallbladder UTS showed gallstones vs. gallbladder polyp. No gallstones were noted in the gallbladder after its removal. Status post lap rosi 12/17/[address] Nieto. Qualifiers: Cholelithiasis location: gallbladder Cholecystitis presence: with cholecystitis Cholecystitis acuity: acute and chronic Biliary obstruction: without biliary obstruction Qualified Code(s): K80.12 - Calculus of gallbladder with acute and chronic cholecystitis without obstruction (7) Conjugated hyperbilirubinemia Current Visit: Yes Status: Acute Presented with T Bili of 9.4 with jaundice. Likely multifactorial: chronic hepatitis + cholecystitis. MRCP did not show any ductal dilatation or obstruction. Improved since having her gallbladder removed 12/17/17. Continue to trend. (8) Elevated LFTs Current Visit: Yes Status: Acute Likely multifactorial: cholecystitis + chronic hepatitis. Admitting labs: AST 358, ALT 218, AP 826. Improved since gallbladder removed 12/18/17. Continue to trend. (9) Thrombocytopenia Current Visit: Yes Status: Resolved Etiology unclear: Lovenox vs. infection vs. other. No acute bleeding noted on exam. Resolved. Continue trend. (10) Hyponatremia Current Visit: Yes Status: Acute (11) HTN (hypertension) Current Visit: Yes Status: Acute Qualifiers: Hypertension type: essential hypertension Qualified Code(s): I10 - Essential (primary) hypertension (12) Diabetes mellitus Current Visit: No Status: Chronic Recommend aggressive glucose monitoring and control to promote wound healing and prevent wound infection. Management per the primary team. Qualifiers: Diabetes mellitus type: type 2 Diabetes mellitus intermediate insulin use: with intermediate use Diabetes mellitus complication status: without complication Qualified Code(s): E11.9 - Type 2 diabetes mellitus without complications; Z79.4 - bed bug exterminator (current) use of insulin; Z79.4 - correction ( current) use of insulin; Z79.4 - correction (current) use of insulin; Z79.4 - correction (current) use of insulin - Subjective Interval history: Patient seen and examined sitting up in the bedside chair. No acute events noted overnight. Patient states she feels well today, but is still having some soreness around the SHIRA drain. States drainage from SHIRA drain has improved. Denies fevers, chills, or rigors. Denies headache, neck pain, or dizziness. Denies congestion, earache, sore throat, or nasal drainage. Denies chest pain, shortness of breath, or cough. Denies nausea, vomiting, or diarrhea, but states she has been getting some reflux associated with eating. She reports loose stool a couple of days ago after she took a laxative, but that has resolved. Reports BM yesterday. Reports mild post-op pain, worse with movement and mainly at the drain site. Denies urinary complaints and states her appetite is good. Denies oral thrush or skin lesions. Infect Dis PN-Objective Data - Labs CBC & Chem 7: 12/24/17 09:20 12/24/17 09:20 Labs: Laboratory Results - last 24 hr 12/23/17 12/23/17 12/23/17 11:11 13:33 15:20 Smear Path Review See Below POC Glucose 278 H 260 H Cultures: Serology 12/22/17 12/17/17 12/11/17 Range/Units 14:29 17:00 14:40 Urine Color Enloe A Enloe A (Yellow) Urine Clarity Cloudy A Cloudy A (Clear) Urine pH 5.5 5.5 (5.0-8.0) pH Units Ur Specific Yoder 1.025 > 1.030 H (1.010-1.025) Urine Protein Trace 30 H (Neg-Trace) mg/dL Urine Glucose (UA) 100 H 500 H (Normal) mg/dL Urine Ketones Negative 15 H (Negative) mg/dL Urine Blood Negative Moderate H (Negative) Urine Nitrite Negative Positive A (Negative) Urine Bilirubin Small H Large H (Negative) Urine Urobilinogen Normal Normal (Normal) mg/dL Ur Leukocyte Esterase Small H Moderate H (Negative) Urine Microscopic RBC 0-3 5-15 H (0-3) per hpf Urine Microscopic WBC 3-5 H 15-30 H (0-3) per hpf Ur Squamous Epith Cells Many H Many H (None-Few) per lpf Urine Bacteria None Seen None Seen (None-Few) per hpf Hyaline Casts None Seen (None-Few) per lpf Urine Yeast Few H Many H (None Seen) per hpf Ur Culture Indicated? NO. NO. (NO) Hepatitis A IgM Ab Nonreactive (Nonreactive) Hep Bs Antigen Nonreactive (Nonreactive) Hep B Core IgM Ab Nonreactive (Nonreactive) Hepatitis C Ab Screen Nonreactive (Nonreactive) Exam - Constitutional Vitals: Temp Pulse Resp BP Pulse Ox 98.0 F 89 17 152/62 98 12/24/17 08:07 12/24/17 08:07 12/24/17 08:07 12/24/17 08:07 12/24/17 08:07 General appearance: cooperative, no acute distress, obese - Head Head exam: Present: atraumatic, normal inspection, normocephalic - Eye Eye exam: Present: EOMI, normal appearance, PERRL Pupils: Present: normal accommodation - ENT ENT exam: Present: mucous membranes moist - Neck Neck exam: Present: normal inspection - Respiratory Respiratory exam: Present: CTAB. Absent: rales, respiratory distress, rhonchi, wheezes - Cardiovascular Cardiovascular exam: Present: RRR, +S1, +S2 - GI/Abdominal GI/Abdominal exam: Present: normal bowel sounds, soft, tenderness (RUQ). Absent : distended Additional comments: Surgical stab incisions x 4 with dermabond intact and wound edges well- approximated. SHIRA drain with small amount of serous drainage. - Extremities Exam Extremities exam: Absent: joint swelling, pedal edema, tenderness - Neurological Exam Neurological exam: Present: alert, oriented X3, no focal deficits - Psychiatric Psychiatric exam: Present: normal affect, normal mood - Skin Skin exam: Present: dry, intact, normal color, warm - VTE Documentation of Mechanical Device: Intermittent pneumatic compression device Consult Discharge Plan - Plan Referrals: Tiago Scott MD [Primary Care Provider] - (WEB REQUEST SENT ON 12/21/17) - Attending Attestation I examined this patient and my medical decision-making was reviewed with the Resident Physician. I agree with the documented findings, disposition and treatment plan as described except to the extent set forth below.
[2017-12-24 10:34] LABS: Hematocrit 33.4 % (35.3-44.9); Hemoglobin 10.6 g/dL (11.5-15.4); Mean Corpuscular HGB Conc 31.7 g/dL (31.6-35.5); Mean Corpuscular Hemoglobin 33.4 pg (28.0-33.3); Mean Corpuscular Volume 105.4 fL (83.0-100.0); Monocytes # 1.4 K/mcL (0.0-1.3); Platelet Count 169 K/mcL (140-400); Red Blood Count 3.17 M/mcL (3.82-4.97); Red Cell Distribution Width 18.9 % (11.5-14.5)
[2017-12-24 10:48] LABS: Alanine Aminotransferase 112 Units/L (7-52); Albumin 2.3 g/dL (3.5-5.7); Albumin/Globulin Ratio 0.7 (1.1-2.2); Alkaline Phosphatase 527 Units/L (34-104); Aspartate Amino Transferase 150 Units/L (13-39); BUN/Creatinine Ratio 28 (6-26); Bilirubin,Total 4.6 mg/dL (0.3-1.0); Blood Urea Nitrogen 29 mg/dL (8-23); Carbon Dioxide 24 mEq/L (23-29); Chloride 101 mEq/L (98-107); Globulin 3.2 g/dL (2.4-3.5); Glucose 271 mg/dL (70-105); Magnesium 2.1 mg/dL (1.6-2.6); Osmolality,Calculated 285 (280-300); Potassium 4.1 mEq/L (3.5-5.1); Sodium 130 mEq/L (136-145); Total Protein 5.5 g/dL (6.4-8.9); eGFR For African Americans > 60 (> 60); eGFR For Non-African Americans 53 (> 60)
[2017-12-24 10:49] LABS: Albumin 2.3 g/dL (3.5-5.7); Albumin/Globulin Ratio 0.7 (1.1-2.2); Bilirubin,Direct 2.4 mg/dL (0.0-0.2); Bilirubin,Indirect 2.2 mg/dL (0.0-1.2); Bilirubin,Total 4.6 mg/dL (0.3-1.0); Globulin 3.2 g/dL (2.4-3.5); Total Protein 5.5 g/dL (6.4-8.9)
[2017-12-24 10:53] LABS: Lymphocytes # 6.2 K/mcL (0.6-4.6); Neutrophils # 9.6 K/mcL (1.6-8.9); Platelet Estimate Normal (Normal)
[2017-12-24 11:47] VITALS: BP 148/79
--- NOTE | 2017-12-24 14:57 | Discharge Summary ---
Orders not resulted at time of discharge: Pending orders 12/23/17 14:11 Miscellaneous Lab Test Routine 12/25/17 04:00 Complete Blood Count [HEME] AM 0400 Comprehensive Metabolic Panel AM 0400 Magnesium AM 0400 Date of Encounter: 12/24/17 Time of Encounter: 14:54 - Discharge Diagnosis (1) HTN (hypertension) Priority: Secondary Status: Acute Qualifiers: Hypertension type: essential hypertension Qualified Code(s): I10 - Essential (primary) hypertension (2) Leukocytosis Priority: Primary Status: Acute Qualifiers: Leukocytosis type: unspecified Qualified Code(s): D72.829 - Elevated white blood cell count, unspecified (3) Diabetes mellitus Priority: Secondary Status: Chronic Qualifiers: Diabetes mellitus type: type 2 Diabetes mellitus care home insulin use: with intermediate teacher use Diabetes mellitus complication status: without complication Qualified Code(s): E11.9 - Type 2 diabetes mellitus without complications; Z79.4 - termite technician (current) use of insulin; Z79.4 - termite technician ( current) use of insulin; Z79.4 - detention (current) use of insulin; Z79.4 - detention (current) use of insulin (4) Acute blood loss as cause of postoperative anemia Priority: Primary Status: Acute Hospital course: Ms. Schrader is a 72 year old female with past medical history of hypertension, hyperlipidemia, and diabetes. Patient had been experiencing right upper quadrant pain and epigastric pain and jaundice. Found to have elevated LFTs and bilirubin levels. Gallbladder ultrasound showed gallstone versus gallbladder polyps. Surgery was consulted patient was admitted for further evaluation. Dr. Nieto did see the patient on the floor and recommended GI consult first for an MRCP was done and showed Cholelithiasis and findings suggestive of acute cholecystitis. There was inflammatory stranding as well as dilatation of the second and third portions of the duodenum. Mild hepatic steatosis was described. GI and Dr. Nieto felt the patient is best to get a liver biopsy given her overall picture which she underwent. The patient did not undergo a lap rosi till we had some prelim report on the pathology of the biopsy. Pathology results came back as Chronic hepatitis pattern of injury with moderate piecemeal necrosis and moderate lobular inflammation (hepatocellular damage); and septal fibrosis with portal-portal fibrous septa. The patient proceeded with a lap rosi on 12/17 with no complications intraoperatively. Post op, the patient developed JONATHON, leukocytosis but no fever, and hyperglycemia. She had thrombocytopenia as well. The patient was resuscitated with IV fluids initially and was net +8 L during her stay. Because of that I ended up diuresing the patient with her kidney function recovering. I stopped diuresing the patient with her kidney function started to worsen again and I held her Lasix. With holding the Lasix her kidney function normalized. I did not diuresis anymore despite patient being that +3 L at discharge. I believe the patient will be able to self diurese with ambulation after discharge. Patient' s hyperglycemia was resolved by restarting the patient's insulin regimen. The patient WBC count continued to climb up and at its max was 18.2. Despite no fever she continued to have elevated white count. We consulted with infectious disease who recommended against any antibiotics as they did not see a reason for it. The patient's white count remained elevated at discharge 17.1. She was afebrile and hemodynamically stable. The patient was discharged on 12/24 with follow-up with general surgery Dr. Nieto on 12/27. She is to obtain a CBC with differential as well as a CMP prior to seeing Dr. Nieto. The patient will need to see GI also in 1-2 weeks for the chronic hepatitis found on the biopsy. Her pathology from the laparoscopic cholecystectomy showed acute and chronic cholecystitis. No calculi were seen. - Time Spent with Patient Total time spent providing and/or coordinating discharge services: Greater than 30 minutes - Discharge Medications Home Medications: Aspirin Enteric Coated [Aspirin EC] 81 mg PO DAILY 12/10/17 [History] Atorvastatin [Lipitor] 10 mg PO HS 12/10/17 [History] Calcium Carbonate [Calcium] 600 mg PO DAILY 12/10/17 [History] Insulin NPH Hum/Reg Insulin Hm [Novolin 70-30 100 Unit/ml Vial] 26 unit SQ QPM 12/10/17 [History] Insulin NPH Hum/Reg Insulin Hm [Novolin 70-30 100 Unit/ml Vial] 46 unit SQ QAM 12/10/17 [History] Lisinopril [Zestril] 10 mg PO DAILY 12/10/17 [History] Vit A/C/E AC/Znox/Cupric Oxide [Eye Vitamin-Minerals Tablet] 1 each PO DAILY [History] glipiZIDE [Glucotrol] 5 mg PO BID 12/10/17 [History] Allergies/Adverse Reactions: 3 Allergy/AdvReac Type Severity Reaction Status Date / Time No Known Allergies Allergy Verified 12/10/17 16:30 Date of admission: 12/11/17 03:17 Primary care physician: Tiago Scott MD Consults: 12/11/17 11:13 Consult to Gastroenterology [CONS] Routine Consulting Provider: [facility] Reason for Consult: elevated LFT cholelithiasis Time Notified: 11:15 Call Completed: Yes 12/18/17 08:32 Consult to Infectious Diseases [CONS] Routine Consulting Provider: [facility] [place] Reason for Consult: Leukocytosis Time Notified: 08:33 Call Completed: Yes - Constitutional Vitals: Temp Pulse Resp BP Pulse Ox 98.9 F 84 18 148/79 99 12/24/17 11:28 12/24/17 11:28 12/24/17 11:28 12/24/17 11:28 12/24/17 11:28 General appearance: Present: cooperative, A&O X 3, pleasant, answers questions appropriately Exam: GEN: NAD CVS: RRR. S1, S2, No m/r/g RESP: CTAB ABD: Soft, mild right upper quadrant tenderness, ND, +BS a SHIRA drain noted with serosanguineous fluid EXT: Anasarca. 2+ DP. No rashes NEURO: Nonfocal - Patient Status Disposition: Home, Self-Care Condition: Fair Overall status at discharge: patient is progressing back to baseline - Ambulatory Orders Ambulatory Orders: Complete Blood Count [HEME] Time Frame: 12/27/17, Facility: [facility], Location: Lab Comprehensive Metabolic Panel [CHEM] Time Frame: 12/27/17, Facility: [facility], Location: Lab - Discharge Instructions Instructions: [facility] (DC), [facility] (GEN) Follow Up With: Tiago Scott MD [Primary Care Provider] - (WEB REQUEST SENT ON 12/21/17) Mian Nieto MD [Non-Partnered Physician] - (Needs to see Dr. Nieto on Wednesday 12/27) Josephine Garza MD [Partnered Physician] - (1-2 weeks) Additional Instructions: Call to make an appointment to see Dr. Nieto on 12/27 Get labs in the morning on 12/27 Make an appointment to see GI. They want to see you in 1-2 weeks - Diet and Activity Activity: increase activity as tolerated Diet: diabetic diet - VTE Documentation of Mechanical Device: Intermittent pneumatic compression device
== END 2017-12-24 15:16 | disposition home or self-care (01) | DRG 854 ==
LOC: EMEROO 15:59 → 3BNU 15:59 → 2ANU 12-18 13:40
PROVIDERS: ADMIT Internal Medicine Cardiovascular Disease; ATTEND Registered Nurse
PROC: IRLIVER (2017-12-13 11:15)

== ENCOUNTER 2017-12-30 08:35 | Observation (INO) ==
--- NOTE | 2017-12-30 08:56 | Emergency Department Note ---
Disposition Clinical Impression: Anasarca, Elevated LFTs Disposition: Admitted As Inpatient Condition: Undetermined General Adult HPI - General Chief complaint: ED General Medical Stated complaint: swollen all over Time Seen by Provider: 12/30/17 08:43 Source: patient Mode of arrival: private vehicle Limitations: no limitations Nursing Notes Reviewed: Yes Vital Signs Reviewed: Yes - History of Present Illness HPI Narrative: 72-year-old patient who is status post cholecystectomy on 12/17 presents to the emergency department for evaluation of generalized edema. Patient states that on 12/10 tooth admitted here for cholecystitis which resulted in a cholecystectomy on 12/17 and she was discharged from the hospital on 12/24. She states after that she started having some generalized edema, she saw Dr. alberts her surgeon on this day as well who prescribed Lasix for her to take. She states she took the Lasix on Saturday and Saturday without much effectiveness but has not had any since that she has not had it. She states generalized edema to her abdomen, bilateral lower extremities is increasing. States she is short of breath with exertion, she is having a little bit of a "stitch" type pain to her left chest that is intermittent. She denies fever, chills, coughing, nausea, vomiting, diarrhea, constipation. She has a medical history that includes diabetes type 2, hypertension, acute kidney injury, hyper bilirubinemia--due to the cholecystitis. Onset (ago): day(s) Location: abdomen, lower extremity Radiation: non-radiation Pain Severity: moderate Pain Scale: 5 Quality: aching Consistency: constant Improves with: medication Worsens with: nothing Associated symptoms: Reports: other (See HPI) Treatments Prior to Arrival: other (lasix use) - Related Data Home Medications Medication Instructions Recorded Confirmed Aspirin Enteric Coated [Aspirin EC] 81 mg PO DAILY 12/10/17 12/30/17 Atorvastatin [Lipitor] 10 mg PO HS 12/10/17 12/30/17 Calcium Carbonate [Calcium] 600 mg PO DAILY 12/10/17 12/30/17 Insulin NPH Hum/Reg Insulin Hm 26 unit SQ QPM 12/10/17 12/30/17 [Novolin 70-30 100 Unit/ml Vial] Insulin NPH Hum/Reg Insulin Hm 46 unit SQ QAM 12/10/17 12/30/17 [Novolin 70-30 100 Unit/ml Vial] Lisinopril [Zestril] 10 mg PO DAILY 12/10/17 12/30/17 Vit A/C/E AC/Znox/Cupric Oxide 1 each PO DAILY 12/10/17 12/30/17 [Eye Vitamin-Minerals Tablet] glipiZIDE [Glucotrol] 5 mg PO BID 12/10/17 12/30/17 Allergies Allergy/AdvReac Type Severity Reaction Status Date / Time No Known Allergies Allergy Verified 12/30/17 08:39 All systems ED: reviewed and negative except as stated. Review of Systems: As Per HPI Past Medical History - Past Medical History Medical history: Reports: diabetes, hyperlipidemia, hypertension Surgical history: Reports: cholecystectomy (Lap rosi 12/17/17), hysterectomy, orthopedic, other (Bilateral ankle ORIF) Psychiatric history: Reports: no psych history - Social History Smoking Status: Former smoker Smokeless Tobacco Status: No Alcohol use: Reports: none Drug use: Reports: none Physical Exam - General Limitations: no limitations General appearance: alert, in no apparent distress - Head Head exam: atraumatic, normocephalic, normal inspection - Eye Eye exam: Present: normal appearance, PERRL, EOMI, scleral icterus - ENT ENT exam: normal exam, normal oropharynx, mucous membranes moist - Neck Neck exam: Present: normal inspection, full ROM, trachea midline - Chest Chest inspection: Present: normal inspection, symmetric chest wall rise - Respiratory Respiratory exam: Present: normal lung sounds bilaterally - Cardiovascular Cardiovascular exam: Present: regular rate, normal rhythm, normal heart sounds, other (ascites, BLE 2+ pitting edema) - Abdominal Exam Abdominal exam: Present: soft, tenderness, normal bowel sounds, incision, other (ascitic) Abdominal tenderness: Present: RUQ, RLQ, LUQ, LLQ, epigastrium - Expanded Lower Extremity Exam Neurovascular/Tendon exam: Absent: pulse deficit, motor deficit, sensory deficit , tendon deficit Gait: observed and normal - Back Exam Back exam: Present: normal inspection, full ROM. Absent: tenderness - Neurological Exam Neurological exam: Present: alert, oriented X3 - Psychiatric Psychiatric exam: Present: normal affect, normal mood - Skin Skin exam: Present: warm, dry, intact, other (slightly jaundiced) Course Course Narrative: 72-year-old patient who is status post cholecystectomy on 12/17 presents to the emergency department for evaluation of generalized edema. Patient states that on 12/10 tooth admitted here for cholecystitis which resulted in a cholecystectomy on 12/17 and she was discharged from the hospital on 12/24. She states after that she started having some generalized edema, she saw Dr. alberts her surgeon on this day as well who prescribed Lasix for her to take. She states she took the Lasix on Saturday and Saturday without much effectiveness but has not had any since that she has not had it. She states generalized edema to her abdomen, bilateral lower extremities is increasing. States she is short of breath with exertion, she is having a little bit of a "stitch" type pain to her left chest that is intermittent. She denies fever, chills, coughing, nausea, vomiting, diarrhea, constipation. She has a medical history that includes diabetes type 2, hypertension, acute kidney injury, hyper bilirubinemia--due to the cholecystitis. Well-hydrated, obese female in no apparent distress. Skin slightly jaundiced, slight sclerae icterus, respirations are easy and even. Abdomen ascitic, surgical puncture wounds to the umbilicus, upper quadrants; drain wound under old dry dressing that is open with erythemic circumferential area without drainage. Bilateral lower extremities 2+ pitting edema Abdominal workup, troponin, chest x-ray, CT abdomen and pelvis Concern for surgical sepsis, liver failure, cirrhosis, acute hepatitis - Reevaluation(s) Reevaluation #1: Labs with elevated LFTs, GFR 50, leukocytosis; CT abdomen and pelvis shows cirrhosis and ascites. Non-surgical emergency we page the hospitalist for admission; hospitals except the patient. Anasarca, elevated liver function tests, cirrhosis No change in physical assessment, vital signs remained stable during ED visit. Time: 12:14 Vital Signs Temperature 97.8 F 12/30/17 08:39 Pulse Rate 98 12/30/17 08:39 Respiratory Rate 20 12/30/17 08:39 Blood Pressure 147/72 12/30/17 08:39 O2 Sat by Pulse Oximetry 98 12/30/17 08:39 Temperature 98.5 F 12/30/17 14:33 Pulse Rate 83 12/30/17 14:33 Respiratory Rate 15 12/30/17 14:33 Blood Pressure 125/68 12/30/17 14:33 O2 Sat by Pulse Oximetry 99 12/30/17 14:33 Oxygen Delivery Oxygen Delivery Room Air Medical Decision Making - MDM Narrative Medical decision making narrative: This documentation is done with the assistance of Dragon dictation. Despite efforts made to ensure accuracy, there may be inaccuracies in design engineer agricultural equipment or spelling and typographical errors. I have personally performed a face to face evaluation on this patient. I have reviewed and agree with the care plan. History and Exam by me shows: Patient was sent in by her surgeon Dr. Nieto. She has had swelling in lower extremities and abdomen. Has a postsurgical patient here without a new complication. Evaluation here shows anasarca pattern. Low albumin. Elevated LFTs which she has had before. Admission with hospitalist and consult surgery. Patient's in agreement with this plan. - Medical Records Medical records reviewed: Yes I reviewed the patient's medical records. - Lab Data Lab results reviewed: Yes I reviewed the patient's lab results. Result diagrams: 12/30/17 09:01 12/30/17 09:01 Lab Results 12/30/17 12/30/17 12/30/17 Range/Units 08:51 09:01 09:01 WBC 14.4 H (4.3-11.1) K/mcL RBC 3.50 L (3.82-4.97) M/mcL Hgb 12.1 (11.5-15.4) g/dL Hct 37.6 (35.3-44.9) % MCV 107.4 H (83.0-100.0) fL MCH 34.6 H (28.0-33.3) pg MCHC 32.2 (31.6-35.5) g/dL RDW 18.6 H (11.5-14.5) % Plt Count 238 (140-400) K/mcL MPV 10.4 (9.4-12.4) fL Immature Gran % 0.6 (0-4) % Seg Neutrophils % 51.9 % Lymphocytes % 35.6 % Monocytes % 8.8 % Eosinophils % 2.5 % Basophils % 0.6 % Neutrophils # 7.5 (1.6-8.9) K/mcL Lymphocytes # 5.1 H (0.6-4.6) K/mcL Monocytes # 1.3 (0.0-1.3) K/mcL Eosinophils # 0.4 (0.0-0.6) K/mcL Basophils # 0.1 (0.0-0.2) K/mcL Nucleated RBCs/100 WBC 0.1 H (0) /100 WBC Immature Plt Fraction 1.9 (1.1-6.1) % PT 11.5 (9.4-12.1) Seconds INR 1.1 APTT 34.0 (26.0-36.0) Seconds Sodium 134 L (136-145) mEq/L Potassium 4.4 (3.5-5.1) mEq/L Chloride 102 (98-107) mEq/L Carbon Dioxide 26 (23-29) mEq/L BUN 26 H (8-23) mg/dL Creatinine 1.07 (0.60-1.20) mg/dL Est GFR ( Amer) > 60 (> 60) Est GFR (Non-Af Amer) 50 L (> 60) BUN/Creatinine Ratio 24 (6-26) Glucose 101 (70-105) mg/dL Calculated Osmolality 283 (280-300) Calcium 8.3 L (8.6-10.3) mg/dL Total Bilirubin 3.7 H (0.3-1.0) mg/dL Direct Bilirubin 1.7 H (0.0-0.2) mg/dL Indirect Bilirubin 2.0 H (0.0-1.2) mg/dL AST 176 H (13-39) Units/L ALT 112 H (7-52) Units/L Alkaline Phosphatase 507 H (34-104) Units/L Troponin I < 0.03 (< 0.04) ng/mL B-Natriuretic Peptide (Less than 100) pg/mL Serum Total Protein 6.3 L (6.4-8.9) g/dL Albumin 2.7 L (3.5-5.7) g/dL Globulin 3.6 H (2.4-3.5) g/dL Albumin/Globulin Ratio 0.8 L (1.1-2.2) Lipase 42 (11-82) Units/L 12/30/17 Range/Units 09:30 WBC (4.3-11.1) K/mcL RBC (3.82-4.97) M/mcL Hgb (11.5-15.4) g/dL Hct (35.3-44.9) % MCV (83.0-100.0) fL MCH (28.0-33.3) pg MCHC (31.6-35.5) g/dL RDW (11.5-14.5) % Plt Count (140-400) K/mcL MPV (9.4-12.4) fL Immature Gran % (0-4) % Seg Neutrophils % % Lymphocytes % % Monocytes % % Eosinophils % % Basophils % % Neutrophils # (1.6-8.9) K/mcL Lymphocytes # (0.6-4.6) K/mcL Monocytes # (0.0-1.3) K/mcL Eosinophils # (0.0-0.6) K/mcL Basophils # (0.0-0.2) K/mcL Nucleated RBCs/100 WBC (0) /100 WBC Immature Plt Fraction (1.1-6.1) % PT (9.4-12.1) Seconds INR APTT (26.0-36.0) Seconds Sodium (136-145) mEq/L Potassium (3.5-5.1) mEq/L Chloride (98-107) mEq/L Carbon Dioxide (23-29) mEq/L BUN (8-23) mg/dL Creatinine (0.60-1.20) mg/dL Est GFR ( Amer) (> 60) Est GFR (Non-Af Amer) (> 60) BUN/Creatinine Ratio (6-26) Glucose (70-105) mg/dL Calculated Osmolality (280-300) Calcium (8.6-10.3) mg/dL Total Bilirubin (0.3-1.0) mg/dL Direct Bilirubin (0.0-0.2) mg/dL Indirect Bilirubin (0.0-1.2) mg/dL AST (13-39) Units/L ALT (7-52) Units/L Alkaline Phosphatase (34-104) Units/L Troponin I (< 0.04) ng/mL B-Natriuretic Peptide 48 (Less than 100) pg/mL Serum Total Protein (6.4-8.9) g/dL Albumin (3.5-5.7) g/dL Globulin (2.4-3.5) g/dL Albumin/Globulin Ratio (1.1-2.2) Lipase (11-82) Units/L - Radiology Data Radiology results reviewed: Yes I reviewed the patient's radiology results.
[2017-12-30 09:17] LABS: Basophils # 0.1 K/mcL (0.0-0.2); Basophils % 0.6 %; Eosinophils # 0.4 K/mcL (0.0-0.6); Eosinophils % 2.5 %; Hematocrit 37.6 % (35.3-44.9); Hemoglobin 12.1 g/dL (11.5-15.4); Immature Granulocytes % 0.6 % (0-4); Immature Platelets 1.9 % (1.1-6.1); Lymphocytes # 5.1 K/mcL (0.6-4.6); Lymphocytes % 35.6 %; Mean Corpuscular HGB Conc 32.2 g/dL (31.6-35.5); Mean Corpuscular Hemoglobin 34.6 pg (28.0-33.3); Mean Corpuscular Volume 107.4 fL (83.0-100.0); Mean Platelet Volume 10.4 fL (9.4-12.4); Monocytes # 1.3 K/mcL (0.0-1.3); Monocytes % 8.8 %; Neutrophils # 7.5 K/mcL (1.6-8.9); Nucleated Red Blood Cells 0.1 /100 WBC (0); Platelet Count 238 K/mcL (140-400); Red Cell Distribution Width 18.6 % (11.5-14.5); Segmented Neutrophils % 51.9 %
[2017-12-30 09:21] LABS: INR 1.1; Prothrombin Time 11.5 Seconds (9.4-12.1)
[2017-12-30 09:37] LABS: Troponin I < 0.03 ng/mL (< 0.04)
[2017-12-30 09:38] LABS: BUN/Creatinine Ratio 24 (6-26); Blood Urea Nitrogen 26 mg/dL (8-23); Carbon Dioxide 26 mEq/L (23-29); Chloride 102 mEq/L (98-107); Glucose 101 mg/dL (70-105); Potassium 4.4 mEq/L (3.5-5.1); Sodium 134 mEq/L (136-145); eGFR For African Americans > 60 (> 60); eGFR For Non-African Americans 50 (> 60)
[2017-12-30 09:39] LABS: Alanine Aminotransferase 112 Units/L (7-52); Albumin 2.7 g/dL (3.5-5.7); Albumin/Globulin Ratio 0.8 (1.1-2.2); Alkaline Phosphatase 507 Units/L (34-104); Aspartate Amino Transferase 176 Units/L (13-39); Bilirubin,Direct 1.7 mg/dL (0.0-0.2); Bilirubin,Total 3.7 mg/dL (0.3-1.0); Calcium 8.3 mg/dL (8.6-10.3); Globulin 3.6 g/dL (2.4-3.5); Lipase 42 Units/L (11-82); Osmolality,Calculated 283 (280-300); Total Protein 6.3 g/dL (6.4-8.9)
--- NOTE | 2017-12-30 12:18 | Internal Med History&Physical ---
Date of Encounter: 12/30/17 Time of Encounter: 11:00 Assessment and Plan (1) Ascites of liver Current visit: Yes Status: Acute Patient with abdominal and bilateral lower extremity edema in addition to scleral icterus and elevated transaminases on labs. CT of the abdomen showed cirrhosis with moderate amount of ascites. Will consult IR for paracentesis as well as GI for management of hepatitis. Will also start patient on diuretic therapy with spironolactone and furosemide (2) Chronic hepatitis Current visit: No Status: Acute Will consult GI as above and appreciate recommendations (3) Conjugated hyperbilirubinemia Current visit: No Status: Acute Secondary to and management as above (4) Elevated LFTs Current visit: No Status: Acute Secondary to and management as above (5) Diabetes mellitus Current visit: No Status: Chronic Will continue home insulin regimen in addition to ANDREA inhibitor and statin Qualifiers: Diabetes mellitus type: type 2 Diabetes mellitus computer terminal operator insulin use: with computer terminal operator use Diabetes mellitus complication status: without complication Qualified Code(s): E11.9 - Type 2 diabetes mellitus without complications; Z79.4 - intermediate (current) use of insulin; Z79.4 - watermelon inspector ( current) use of insulin; Z79.4 - intermediate (current) use of insulin; Z79.4 - watermelon inspector (current) use of insulin (6) DVT prophylaxis Current visit: No Status: Acute Subcutaneous heparin Internal Medicine - H&P: HPI Chief complaint: Abdominal distention/lower extremity swelling Admitted From: Home Plans for Post Hospital Care: Home History of present illness: Patient is a 72-year-old female with past medical history significant for diabetes hypertension and obesity with recent cholecystectomy on 12/17/17 who presents to the ER on 12/30/17 due to abdominal and lower extremity swelling. Patient reports that her symptoms started approximately 3 weeks ago when she noticed that her abdomen began to swell and she developed lower extremity edema. Patient had a recent cholecystectomy on 12/17/17 and reports afterwards of experiencing elevated transaminases and swelling. At that time, GI was consulted for conjugated hyperbilirubinemia and a liver biopsy revealed chronic hepatitis pattern of injury with moderate piecemeal necrosis and moderate lobular inflammation (hepatocellular damage), and septal fibrosis with portal-portal fibrous septa with architectural distortion (severe fibrosis). Siderosis Grade 3 of 4. Negative for malignancy. She was to follow- up with GI as an outpatient however his symptoms have not improved and return to the ER for further evaluation. In the ER, patient found to have elevated transaminases with an AST 112, AST 176 , alk phosphatase 507, total bilirubin 3.7, direct bilirubin 1.7 and indirect bilirubin 2.0. CT abdomen/pelvis was done which showed cirrhosis with moderate amount of ascites. Patient also had lower extremity swelling on exam and with scleral icterus. She will be admitted to medical surgical floor for further evaluation. Past Med Surg Social Fam HX - Past Medical History Medical history: diabetes, hyperlipidemia, hypertension Psychiatric history: no psych history - Past Surgical History Surgical History: cholecystectomy (Lap rosi 12/17/17), hysterectomy, orthopedic , other (Bilateral ankle ORIF) - Social History Smoking Status: Former smoker Smokeless Tobacco Status: No Alcohol use: none Drug use: none - Family History Mother Living Status: Hx Family Cardiac Disorders: Yes Hx Family GI Disorders: Yes Father Living Status: Hx Family Cancer: Yes Internal Medicine - H&P: Meds Aspirin Enteric Coated [Aspirin EC] 81 mg PO DAILY 12/10/17 [History] Atorvastatin [Lipitor] 10 mg PO HS 12/10/17 [History] Calcium Carbonate [Calcium] 600 mg PO DAILY 12/10/17 [History] Insulin NPH Hum/Reg Insulin Hm [Novolin 70-30 100 Unit/ml Vial] 26 unit SQ QPM 12/10/17 [History] Insulin NPH Hum/Reg Insulin Hm [Novolin 70-30 100 Unit/ml Vial] 46 unit SQ QAM 12/10/17 [History] Lisinopril [Zestril] 10 mg PO DAILY 12/10/17 [History] Vit A/C/E AC/Znox/Cupric Oxide [Eye Vitamin-Minerals Tablet] 1 each PO DAILY [History] glipiZIDE [Glucotrol] 5 mg PO BID 12/10/17 [History] 3 Allergy/AdvReac Type Severity Reaction Status Date / Time No Known Allergies Allergy Verified 12/30/17 08:39 All Systems PM: A 10-system review of systems was performed and is negative for pertinent findings except as documented above in the HPI. - Constitutional Vitals: Temp Pulse Resp BP Pulse Ox 97.8 F 81 20 122/60 100 12/30/17 08:39 12/30/17 10:30 12/30/17 11:08 12/30/17 11:08 12/30/17 10:30 General appearance: Present: A&O X 3, no acute distress - Head Head exam: Present: normocephalic - Eye Eye exam: Present: scleral icterus - ENT ENT exam: Present: mucous membranes moist - Respiratory Respiratory exam: Present: CTAB. Absent: accessory muscle use, rales, rhonchi, wheezes - Cardiovascular Cardiovascular exam: Present: RRR, +S1, +S2. Absent: diastolic murmur, gallop, rubs, systolic murmur - GI/Abdominal GI/Abdominal exam: Present: distended, soft - Expanded GI/Abdominal Exam GI/Abdominal exam expanded: Present: ascites - Expanded Lower Extremities Exam Lower Leg exam: Present: swelling (Bilateral lower extremity edema up to knees) - Neurological Exam Neurological exam: Present: oriented X3 - Psychiatric Psychiatric exam: Present: normal mood - Skin Skin exam: Present: normal color Internal Med - H&P Results - Labs CBC & Chem 7: 12/30/17 09:01 12/30/17 09:01
[2017-12-30] MEDS ORDERED: Naloxone 0.4 MG/ML INJ IVP PRN (12:49)
[2017-12-30] MEDS ORDERED: *HR* Dextrose 50 % in Water (Syg) 50 ML SYRINGE ONE (13:04)
[2017-12-30] MEDS: Furosemide 40 MG TABLET PO SCH (13:18)
[2017-12-30] MEDS: *HR* Heparin 5,000 UNIT/ML VIAL SQ SCH ×2 (13:18→20:46)
--- NOTE | 2017-12-30 13:22 | Gastroenterology Consult Note ---
Date of Encounter: 12/30/17 Time of Encounter: 13:13 - Assessment and plan (1) Ascites Current Visit: Yes Status: Acute Assessment and plan: Patient with abdominal distention and lower extremity swelling despite home diuretic use During recent 2 week hospitalization due to acute cholecystitis, patient underwent laparoscopic cholecystectomy on 12/17/17 and had a liver biopsy. Pathology results revealed chronic hepatitis pattern of injury with moderate piecemeal necrosis and moderate lobular inflammation (hepatocellular damage), and septal fibrosis with portal-portal fibrous septa with architectural distortion (severe fibrosis). Siderosis Grade 3 of 4. Negative for malignancy. Post operative RUQ SHIRA drain was pulled during follow up appointment with surgeon on 12/27/17. Labs revealed elevated transaminases with an AST 112, AST 176, alk phosphatase 507, total bilirubin 3.7, direct bilirubin 1.7 and indirect bilirubin 2.0. CT abdomen/pelvis was done which showed cirrhosis with moderate amount of ascites. Abnormal LFTs with cholestasis most likely medication induced. Currently not on Ursodiol. LFTs are slowly improving Agree with Aldactone/ Lasix diureis Anticipate paracentesis Qualifiers: Ascites type: other type Qualified Code(s): R18.8 - Other ascites - Time Spent With Patient Total time spent is greater than 50% in coordination of care (as documented) at patient's floor/unit and/or counseling patient: GI History of Present Illness - Data of Consult Patient: known to practice within the last 3 years Consult date: 12/30/17 Requesting Physician: Pura Mcdonnell MD - Consult Narrative Reason for consult: Liver cirrhosis with ascites History of present illness: Ms. Schrader is a 72 year old female with a past medical history of hypertension, hyperlipidemia, diabetes and recent 2 week hospitalization due to acute cholecystitis who presented to the ED due to abdominal distention and lower extremity swelling despite home diuretic use. During last hospitalization, patient underwent laparoscopic cholecystectomy on 12/17/17 for acute cholecystitis and had a liver biopsy. Pathology results revealed chronic hepatitis pattern of injury with moderate piecemeal necrosis and moderate lobular inflammation (hepatocellular damage), and septal fibrosis with portal- portal fibrous septa with architectural distortion (severe fibrosis). Siderosis Grade 3 of 4. Negative for malignancy. She was scheduled to follow-up with GI as an outpatient, however her symptoms worsened and she returned to the ER for further evaluation. She reports abdominal fullness, shortness of breath, leg edema, and difficulty moving due to abd distension. She reports her RUQ SHIRA drain was pulled during follow up appointment with surgeon on 12/27/17. Patient denies any fevers, chills, nausea, vomiting, chest pain, or anorexia. Labs revealed elevated transaminases with an AST 112, AST 176, alk phosphatase 507, total bilirubin 3.7, direct bilirubin 1.7 and indirect bilirubin 2.0. CT abdomen /pelvis was done which showed cirrhosis with moderate amount of ascites. Patient is scheduled to have a paracentesis. Colonoscopy: Normal Colonoscopy in 2007 EGD: Denies Past Med Surg Social Fam HX - Past Medical History Medical history: diabetes, hyperlipidemia, hypertension Psychiatric history: no psych history - Past Surgical History Surgical History: cholecystectomy (Lap rosi 12/17/17), hysterectomy, orthopedic , other (Bilateral ankle ORIF) - Social History Smoking Status: Former smoker Smokeless Tobacco Status: No Alcohol use: none Drug use: none - Family History Mother Living Status: Hx Family Cardiac Disorders: Yes Hx Family GI Disorders: Yes Father Living Status: Hx Family Cancer: Yes - Gastrointestinal Gastrointestinal: Present: abdominal pain, bloating. Absent: change in bowel habits, coffee ground emesis, constipation, diarrhea, dyspepsia, hematemesis, melena, nausea, vomiting - Constitutional Constitutional: weight gain, no anorexia, no fatigue, no fever(s), no weight loss - EENT Nose, mouth and throat: Absent: dysphagia, sore throat - Cardiovascular Cardiovascular ROS: Absent: chest pain, irregular heart rhythm - Respiratory Respiratory IM: Present: dyspnea, wheezing. Absent: cough, hemoptysis - Genitourinary Genitourinary: Absent: change in color, Urinary frequency - Neurological ROS Neurological GI: Absent: confusion, dizziness, headache(s), weakness - Hematologic/Lymphatic Hematologic/Lymphatic pediatric: Present: as per HPI. Absent: easy bleeding - Musculoskeletal Musculoskeletal ROS GI: Absent: back pain, joint swelling - Integumentary Integumentary GI: Absent: jaundice, pruritis, rash - Psychiatric ROS Psychiatric GI: Absent: anxiety, depression - Endocrine Endocrine IM: Absent: cold intolerance, fatigue, heat intolerance - Constitutional Vitals: Temp Pulse Resp BP Pulse Ox 97.8 F 81 20 122/60 100 12/30/17 08:39 12/30/17 10:30 04/02/18 11:08 12/30/17 11:08 12/30/17 10:30 General appearance: Present: cooperative, A&O X 3, no acute distress, answers questions appropriately - Head Head exam: Present: atraumatic, normocephalic - Eye Eye exam: Present: normal appearance, scleral icterus (mild). Absent: sclera anicteric - ENT ENT exam: Present: mucous membranes moist, normal oropharynx - Neck Neck exam general surgery: Present: normal inspection, trachea midline - Respiratory Respiratory exam: Present: decreased breath sounds (bilaterally). Absent: rales , respiratory distress - Cardiovascular Cardiovascular exam: Present: RRR, +S1, +S2 - GI/Abdominal GI/Abdominal exam: Present: distended, normal bowel sounds, soft, no peritoneal signs. Absent: guarding, tenderness - Expanded GI/Abdominal Exam GI/Abdominal exam expanded: Present: heel tap sign - Rectal Rectal exam: Present: deferred - Extremities Exam Extremities exam: Present: pedal edema (2+), warm - Neurological Exam Neurological exam: Present: oriented X3, no focal deficits - Psychiatric Psychiatric exam: Present: normal affect, normal mood - Skin Skin exam: Present: dry, intact (laproscopic surgical incistions C/D/I), normal color, warm Results - Labs CBC & Chem 7: 12/30/17 09:01 12/30/17 09:01 Labs: Last Result Calcium 8.3 mg/dL (8.6-10.3) L 12/30/17 09:01 Troponin I < 0.03 ng/mL (< 0.04) 12/30/17 09:01 Entire Visit Hgb 12.1 g/dL (11.5-15.4) 12/30/17 09:01 Hct 37.6 % (35.3-44.9) 12/30/17 09:01 PT 11.5 Seconds (9.4-12.1) 12/30/17 08:51 Total Bilirubin 3.7 mg/dL (0.3-1.0) H 12/30/17 09:01 AST 176 Units/L (13-39) H 12/30/17 09:01 ALT 112 Units/L (7-52) H 12/30/17 09:01 Lipase 42 Units/L (11-82) 12/30/17 09:01 - ABG ABG results: PT/INR, D-dimer PT 11.5 Seconds (9.4-12.1) 12/30/17 08:51 - Impressions ITS Impressions Abdomen/Pelvis CT 12/30/17 09:38 IMPRESSION: 1. Cirrhosis with moderate amount of ascites. D/ / Asim Nunes MD / Asim Nunes MD Interpreting Provider: Asim Nunes MD Consult Discharge Plan - Plan Referrals: Tiago Scott MD [Primary Care Provider] -
--- NOTE | 2017-12-30 14:49 | Electrocardiograph Report ---
[place] [id number] Test Date: 2017-12-30 Pat Name: Leah Schrader Department: 102 Room: 3A24 Gender: F Sewer: : 1945 Requested By: Sada Donahue Order Number: [id number] Reading MD: Bautista Bazzi Measurements Intervals [place] Rate: 79 P: 50 IN: 172 QRS: 40 QRSD: 89 T: 47 QT: 342 QTc: 376 Interpretive Statements SINUS RHYTHM WITH PVCS BASELINE ARTIFACT Electronically Signed On 12-30-2017 14:48:18 EDT by Bautista Bazzi
--- NOTE | 2017-12-30 15:23 | IR Procedure Note ---
Date of procedure: 12/30/17 Consent Obtained: Verbal consent Timeout: Correct patient and procedure verified, Correct site verified, Time out performed, Skin prep completed Indications: ascites Procedure Performed: paracentesis Was there an buyer assistant present: No Site/Technique: left abdomen Results/Findings: ascites Estimated blood loss (cc): 0 Complications: None; Tolerated procedure well Post Procedure Treatment Plan: monitor Specimen: fluid
[2017-12-30 16:55] LABS: Total Protein,Peritoneal Fluid < 3.0 g/dL (No Ref Range)
[2017-12-30 16:58] LABS: Appearance of Body Fluid Cloudy (Clear); Source of Body Fluid Paracentesis of hepa; Volume of Body Fluid 60 mL
--- NOTE | 2017-12-30 17:42 | General Surgery Consult Note ---
Date of Encounter: 12/30/17 Time of Encounter: 17:16 History of Present Illness Consult date: 12/30/17 Requesting physician: Lee Pleitez History of present illness: 72-year-old admitted after presenting to [facility] ED at my instructions for further evaluation of abdominal bloating and severe peripheral edema. Patient's pertinent medical history include hospital admission, 12/10/17, after presenting to [facility] ED with several week history of right upper quadrant and epigastric abdominal pain with nausea. At the time of presentation, the patient described quite cholestyramine extremely dark urine. Bilirubin was markedly abnormal at 8.3 increasing to 9.4 shortly after admission. AST 358, ALT 218, alkaline phosphatase 256. In addition to surgical evaluation, the patient was evaluated by gastroenterology. The patient ultimately underwent a percutaneous liver biopsy by interventional radiology showing chronic hepatitis with moderate piecemeal necrosis and moderate lobular inflammation ( hepatocellular damage); septal fibrosis with portal portal fibrous septa and architectural distortion consistent with severe fibrosis. 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 The etiology of this hepatic injury was not determined. The patient's hospital course continued to be one of waxing and waning status, including intermittent leukocytosis as well as abdominal pain. The concomitant presence of acute and chronic cholecystitis/cholelithiasis was a complicating factor. The patient ultimately underwent a laparoscopic cholecystectomy on 12/17/17, which was accomplished without incident. Pathology showed acute and chronic cholecystitis, no calculi identified. The patient was ultimately discharged home on 12/24/17 and seen as an outpatient in my office, . At that time the patient was stable but noted significant increase in peripheral edema. Outpatient blood work demonstrated a white count of 12.8 which was diminished from 17.1, hemoglobin was stable at 10.8 with hematocrit 34.1. Electrolytes were stable, BUN 27, creatinine 0.91. Total bilirubin had fallen to 3.5, AST 163, ALT 108, and alkaline phosphatase 445 (at the time of discharge, 12/24/2017, bilirubin was 4.6, AST 151, ALT 113, alkaline phosphatase 529). Over the last few days the patient increased abdominal distention as well as significant worsening of peripheral edema/third spacing. The patient contacted co telephonically early this morning with these complaints and was instructed to present to the emergency department for further evaluation and subsequent admission. Past medical history: Cirrhosis/chronic hepatitis of undetermined etiology as described above; diabetes, hypertension, hyperlipidemia. Surgical history: Hysterectomy in the remote past; percutaneous liver biopsy, ; laparoscopic cholecystectomy, 12/17/17. Hospital course: Patient presented to the [facility] ED as instructed. Labs and CT were completed. These were reviewed. The CT demonstrated peritoneal fluid without obvious abscess, no evidence of bowel obstruction, normal-appearing appendix and scattered diverticulosis. Mild circumferential wall thickening of the ascending colon is felt to be likely due to a combination of underdistention and the surrounding intraperitoneal fluid. The patient was referred to interventional radiology for a paracentesis. This was successfully completed removing approximately 2500 mL from the peritoneal cavity. Aggressive diuresis with Lasix and spironolactone has been initiated - the patient describes a brisk response with copious urine output, however, no urine output has yet been recorded by the nursing staff. On my examination, the patient appears mildly jaundiced but in no acute distress. The patient is afebrile at 98.5, pulse 83, respirations 15, blood pressure 125/68; SPO2 on room air 99% Lungs are clear to auscultation; there was no abdominal pain on deep inspiration Abdomen was soft, distended but nontender. Bowel sounds were present. Laparoscopic port sites were intact and healing well There was no elicited rebound. Impression: Chronic hepatitis with moderate piecemeal necrosis and moderate lobular inflammation (hepatocellular damage) along with septal fibrosis and portal portal fibrous septa and architectural distortion consistent with severe fibrosis. Acute and chronic cholecystitis Hyperbilirubinemia related to the chronic hepatitis/cirrhosis - bilirubin elevated but improved, 3.7, since initial presentation on 12/10/2017 Ascites also related to the chronic hepatitis cirrhosis Diabetes mellitus Hypertension Hyperlipidemia No acute surgical disease identified however I will follow along with you and be available for surgical intervention should the need arise. Recommendations: Per my discussion with Dr. Pleitez and subsequently the patient and her family , referral to a Testing Manager will be made during this hospitalization. This will likely require transfer to a [facility], once her medical status has stabilized. Past Med Surg Social Fam HX - Past Medical History Medical history: diabetes, hyperlipidemia, hypertension Psychiatric history: no psych history - Past Surgical History Surgical History: cholecystectomy (Lap rosi 12/17/17), hysterectomy, orthopedic , other (Bilateral ankle ORIF) - Social History Smoking Status: Former smoker Smokeless Tobacco Status: No Alcohol use: none Drug use: none - Family History Mother Living Status: Hx Family Cardiac Disorders: Yes Hx Family GI Disorders: Yes Father Living Status: Hx Family Cancer: Yes Medications and Allergies Aspirin Enteric Coated [Aspirin EC] 81 mg PO DAILY 12/10/17 [History] Atorvastatin [Lipitor] 10 mg PO HS 12/10/17 [History] Calcium Carbonate [Calcium] 600 mg PO DAILY 12/10/17 [History] Insulin NPH Hum/Reg Insulin Hm [Novolin 70-30 100 Unit/ml Vial] 26 unit SQ QPM 12/10/17 [History] Insulin NPH Hum/Reg Insulin Hm [Novolin 70-30 100 Unit/ml Vial] 46 unit SQ QAM 12/10/17 [History] Lisinopril [Zestril] 10 mg PO DAILY 12/10/17 [History] Vit A/C/E AC/Znox/Cupric Oxide [Eye Vitamin-Minerals Tablet] 1 each PO DAILY [History] glipiZIDE [Glucotrol] 5 mg PO BID 12/10/17 [History] 3 Allergy/AdvReac Type Severity Reaction Status Date / Time No Known Allergies Allergy Verified 12/30/17 08:39 Review of Systems All systems PM: The remainder of the systems were reviewed and are negative General Surgery Exam Initial Vital Signs Temp Pulse Resp BP Pulse Ox 97.8 F 98 20 147/72 98 12/30/17 08:39 12/30/17 08:39 12/30/17 08:39 12/30/17 08:39 12/30/17 08:39 Exam Initial Vital Signs Temp Pulse Resp BP Pulse Ox 97.8 F 98 20 147/72 98 12/30/17 08:39 12/30/17 08:39 12/30/17 08:39 12/30/17 08:39 12/30/17 08:39 Results - Labs 12/30/17 09:01 12/30/17 09:01 Abnormal lab results WBC 14.4 K/mcL (4.3-11.1) H 12/30/17 09:01 RBC 3.50 M/mcL (3.82-4.97) L 12/30/17 09:01 MCV 107.4 fL (83.0-100.0) H 12/30/17 09:01 MCH 34.6 pg (28.0-33.3) H 12/30/17 09:01 RDW 18.6 % (11.5-14.5) H 12/30/17 09:01 Lymphocytes # 5.1 K/mcL (0.6-4.6) H 12/30/17 09:01 Nucleated RBCs/100 WBC 0.1 /100 WBC (0) H 12/30/17 09:01 Sodium 134 mEq/L (136-145) L 12/30/17 09:01 BUN 26 mg/dL (8-23) H 12/30/17 09:01 Est GFR (Non-Af Amer) 50 (> 60) L 12/30/17 09:01 POC Glucose 98 mg/dL (58-89) H 12/30/17 16:33 Calcium 8.3 mg/dL (8.6-10.3) L 12/30/17 09:01 Total Bilirubin 3.7 mg/dL (0.3-1.0) H 12/30/17 09:01 Direct Bilirubin 1.7 mg/dL (0.0-0.2) H 12/30/17 09:01 Indirect Bilirubin 2.0 mg/dL (0.0-1.2) H 12/30/17 09:01 AST 176 Units/L (13-39) H 12/30/17 09:01 ALT 112 Units/L (7-52) H 12/30/17 09:01 Alkaline Phosphatase 507 Units/L (34-104) H 12/30/17 09:01 Serum Total Protein 6.3 g/dL (6.4-8.9) L 12/30/17 09:01 Albumin 2.7 g/dL (3.5-5.7) L 12/30/17 09:01 Globulin 3.6 g/dL (2.4-3.5) H 12/30/17 09:01 Albumin/Globulin Ratio 0.8 (1.1-2.2) L 12/30/17 09:01 Fluid Appearance Cloudy (Clear) A 12/30/17 15:00 All other labs normal. Consult Discharge Plan - Plan Referrals: Tiago Scott MD [Primary Care Provider] -
[2017-12-30] MEDS: Insulin NPH/REG 70/30 100 UNIT/ML (x5UNIT) SQ SCH (17:53)
[2017-12-31 05:52] LABS: Basophils # 0.1 K/mcL (0.0-0.2); Basophils % 0.6 %; Eosinophils # 0.3 K/mcL (0.0-0.6); Eosinophils % 2.8 %; Hematocrit 30.4 % (35.3-44.9); Hemoglobin 9.8 g/dL (11.5-15.4); Immature Granulocytes % 0.4 % (0-4); Lymphocytes # 5.5 K/mcL (0.6-4.6); Mean Corpuscular HGB Conc 32.2 g/dL (31.6-35.5); Mean Corpuscular Hemoglobin 34.3 pg (28.0-33.3); Mean Corpuscular Volume 106.3 fL (83.0-100.0); Mean Platelet Volume 10.9 fL (9.4-12.4); Monocytes # 1.1 K/mcL (0.0-1.3); Monocytes % 9.8 %; Neutrophils # 4.4 K/mcL (1.6-8.9); Platelet Count 139 K/mcL (140-400); Red Blood Count 2.86 M/mcL (3.82-4.97); Red Cell Distribution Width 18.5 % (11.5-14.5); Segmented Neutrophils % 38.4 %
[2017-12-31 06:10] LABS: Albumin/Globulin Ratio 0.7 (1.1-2.2); Bilirubin,Direct 1.3 mg/dL (0.0-0.2); Bilirubin,Indirect 1.7 mg/dL (0.0-1.2)
[2017-12-31 06:11] LABS: BUN/Creatinine Ratio 26 (6-26); Blood Urea Nitrogen 28 mg/dL (8-23); Calcium 7.8 mg/dL (8.6-10.3); Carbon Dioxide 24 mEq/L (23-29); Chloride 107 mEq/L (98-107); Glucose 68 mg/dL (70-105); Osmolality,Calculated 284 (280-300); Potassium 4.4 mEq/L (3.5-5.1); Sodium 135 mEq/L (136-145); eGFR For African Americans > 60 (> 60); eGFR For Non-African Americans 50 (> 60)
--- NOTE | 2017-12-31 08:03 | Gastroenterology Progress Note ---
<Austin Brooke - Last Filed: 12/31/17 16:56> Date of Encounter: 12/31/17 Time of Encounter: 08:03 - Assessment and plan (1) Ascites Status: Acute Assessment and plan: Patient with abdominal distention and lower extremity swelling despite home diuretic use. During recent 2 week hospitalization due to acute cholecystitis, patient underwent laparoscopic cholecystectomy on 12/17/17 and had a liver biopsy. Pathology results revealed chronic hepatitis pattern of injury with moderate piecemeal necrosis and moderate lobular inflammation (hepatocellular damage), and septal fibrosis with portal-portal fibrous septa with architectural distortion (severe fibrosis). Siderosis Grade 3 of 4. Negative for malignancy. Post operative RUQ SHIRA drain was pulled during follow up appointment with surgeon on 12/27/17. CT abdomen/pelvis without contrast was done which showed cirrhosis with moderate amount of ascites. Patient underwent paracentesis 12/30/17 yielding approximately 2500 mL ascites fluid LFTs are slowly improving Continue Aldactone/ Lasix diureis Differential includes subacute or chronic Budd-Chiari syndrome Will obtain RUQ Doppler ultrasonography to exclude concurrent portal or splenic vein thrombosis (patient must be NPO for 8 hours prior to ultrasound). Qualifiers: Ascites type: other type Qualified Code(s): R18.8 - Other ascites - Time Spent With Patient Total time spent is greater than 50% in coordination of care (as documented) at patient's floor/unit and/or counseling patient: - Subjective Interval history: Patient seen and examined. Patient reports feeling much improved following paracentesis yesterday. She reports ambulating without difficulty and tolerating PO intake. Patient denies and new c/o at this time. - Constitutional Vitals: Temp Pulse Resp BP Pulse Ox 97.8 F 80 16 122/66 98 12/31/17 05:19 12/31/17 05:19 12/31/17 05:19 12/31/17 05:19 12/31/17 05:19 General appearance: Present: cooperative, A&O X 3, no acute distress, answers questions appropriately - Head Head exam: Present: atraumatic, normocephalic - Eye Eye exam: Present: normal appearance, scleral icterus (mild) - ENT ENT exam: Present: mucous membranes moist, normal oropharynx - Neck Neck exam general surgery: Present: normal inspection, trachea midline - Respiratory Respiratory exam: Present: CTAB - Cardiovascular Cardiovascular exam: Present: RRR, +S1, +S2 - GI/Abdominal GI/Abdominal exam: Present: normal bowel sounds, soft, no peritoneal signs. Absent: distended, tenderness - Expanded GI/Abdominal Exam GI/Abdominal exam expanded: Absent: ascites - Rectal Rectal exam: Present: deferred - Extremities Exam Extremities exam: Present: pedal edema (1+), warm - Neurological Exam Neurological exam: Present: oriented X3, no focal deficits - Psychiatric Psychiatric exam: Present: normal affect, normal mood - Skin Skin exam: Present: dry, intact, normal color, warm Results - Labs CBC & Chem 7: 12/31/17 04:15 12/31/17 04:15 Labs: Last Result Calcium 7.8 mg/dL (8.6-10.3) L 12/31/17 04:15 Troponin I < 0.03 ng/mL (< 0.04) 12/30/17 09:01 Peritoneal Tot Protein < 3.0 g/dL (No Ref Range) 12/30/17 15:38 Peritoneal Albumin < 1.5 g/dL (No Ref Range) 12/30/17 15:38 Entire Visit Hgb 9.8 g/dL (11.5-15.4) L D 12/31/17 04:15 Hct 30.4 % (35.3-44.9) L 12/31/17 04:15 PT 11.5 Seconds (9.4-12.1) 12/30/17 08:51 Total Bilirubin 3.0 mg/dL (0.3-1.0) H 12/31/17 04:15 AST 119 Units/L (13-39) H 12/31/17 04:15 ALT 81 Units/L (7-52) H 12/31/17 04:15 Lipase 42 Units/L (11-82) 12/30/17 09:01 - ABG ABG results: PT/INR, D-dimer PT 11.5 Seconds (9.4-12.1) 12/30/17 08:51 - Impressions ITS Impressions Paracentesis Ultrasound 12/30/17 00:00 IMPRESSION: Successful ultrasound guided paracentesis. D/ / Saundra Farris MD / Saundra Farris MD Interpreting Provider: Saundra Farris MD Abdomen/Pelvis CT 12/30/17 09:38 IMPRESSION: 1. Cirrhosis with moderate amount of ascites. D/ / Asim Nunes MD / Asim Nunes MD Interpreting Provider: Asim Nunes MD Consult Discharge Plan - Plan Instructions: Diabetes Mellitus Type 2 in Adults (DC), Sepsis (DC), Chronic Hypertension (DC), Anemia (GEN) Referrals: Tiago Scott MD [Primary Care Provider] - 01/07/18 2:15 pm Prescriptions: Furosemide [Lasix] 40 mg PO DAILY #30 tablet Spironolactone [Aldactone] 100 mg PO DAILY #60 tablet <Tj Koehler - Last Filed: 01/15/18 13:12> Date of Encounter: 12/31/17 - Time Spent With Patient Total time spent is greater than 50% in coordination of care (as documented) at patient's floor/unit and/or counseling patient: - Constitutional Vitals: Temp Pulse Resp BP Pulse Ox 98.1 F 83 16 117/70 93 01/02/18 10:29 01/02/18 10:29 01/02/18 10:29 01/02/18 10:29 01/02/18 10:29 Results - Labs CBC & Chem 7: 01/02/18 04:45 01/02/18 04:45 Labs: Last Result Calcium 7.8 mg/dL (8.6-10.3) L 01/02/18 04:45 Troponin I < 0.03 ng/mL (< 0.04) 12/30/17 09:01 Peritoneal Tot Protein < 3.0 g/dL (No Ref Range) 12/30/17 15:38 Peritoneal Albumin < 1.5 g/dL (No Ref Range) 12/30/17 15:38 Urine Opiates Screen Negative ng/mL ([id number]) 01/01/18 11:08 Entire Visit Hgb 10.2 g/dL (11.5-15.4) L 01/02/18 04:45 Hct 31.9 % (35.3-44.9) L 01/02/18 04:45 PT 11.5 Seconds (9.4-12.1) 12/30/17 08:51 Total Bilirubin 2.5 mg/dL (0.3-1.0) H 01/02/18 04:45 AST 111 Units/L (13-39) H 01/02/18 04:45 ALT 76 Units/L (7-52) H 01/02/18 04:45 Lipase 42 Units/L (11-82) 12/30/17 09:01 - ABG ABG results: PT/INR, D-dimer PT 11.5 Seconds (9.4-12.1) 12/30/17 08:51 - Attending Attestation I examined this patient and my medical decision-making was reviewed with the Resident Physician. I agree with the documented findings, disposition and treatment plan as described except to the extent set forth below.
[2017-12-31] MEDS: *HR* Heparin 5,000 UNIT/ML VIAL SQ SCH ×3 (08:19→22:18)
[2017-12-31] MEDS: Insulin NPH/REG 70/30 100 UNIT/ML (x5UNIT) SQ SCH ×2 (08:20→20:01)
[2017-12-31] MEDS: Aspirin Enteric Coated 81 MG Tablet PO SCH (08:20)
[2017-12-31] MEDS: Furosemide 40 MG TABLET PO SCH (08:20)
--- NOTE | 2017-12-31 12:40 | Internal Med Progress Note ---
Date of Encounter: 12/31/17 Time of Encounter: 12:38 - Assessment and plan (1) Elevated LFTs Current Visit: Yes Status: Acute Assessment and plan: Transaminitis in a patient with known chronic hepatitis,(etiology of hepatitis is unknown, no viral panel) Possibly due to acute insult following the cholecystectomy. However, her transaminitis is improving. Continue to monitor. (2) Diabetes mellitus Current Visit: Yes Status: Chronic Assessment and plan: Continue current insulin therapy. Monitor fingersticks before meals at bedtime. Diabetic diet. Qualifiers: Diabetes mellitus type: type 2 Diabetes mellitus mcfp insulin use: with mcfp use Diabetes mellitus complication status: without complication Qualified Code(s): E11.9 - Type 2 diabetes mellitus without complications; Z79.4 - laborer marine terminal (current) use of insulin; Z79.4 - assisted ( current) use of insulin; Z79.4 - assisted (current) use of insulin; Z79.4 - assisted (current) use of insulin (3) DVT prophylaxis Current Visit: Yes Status: Acute Assessment and plan: Subcutaneous heparin. (4) Conjugated hyperbilirubinemia Current Visit: Yes Status: Acute Assessment and plan: Improving, Continue to monitor. (5) Chronic hepatitis Current Visit: Yes Status: Chronic Assessment and plan: Chronic hepatitis with moderate piecemeal necrosis and moderate lobular inflammation (hepatocellular damage) along with septal fibrosis and portal portal fibrous septa and architectural distortion consistent with severe fibrosis-per pathology, patient with no knwon etiology GI is following. Patient needs to be followed by a police liaison. Since patient is improving, we will consider possibly for outpatient was transferred to [facility]. I will discuss with the surgeon regarding this. (6) Ascites Current Visit: Yes Status: Acute Assessment and plan: Due to decompensated liver cirrhosis. Status post paracentesis, peritoneal fluid was negative for spontaneous bacterial peritonitis. Continue to monitor. Qualifiers: Ascites type: other type Qualified Code(s): R18.8 - Other ascites - Time Spent With Patient Total time spent is greater than 50% in coordination of care (as documented) at patient's floor/unit and/or counseling patient: - Subjective Interval history: 72 F admitted and being managed for Decompensated liver cirrhosis with acute on chronic hepatitis picture, as well as hyperbilirubunemia, ascites. She has no new complains She also had pedal edema on arrival and has been started on diuretics, she is s/ p paracentensis 12/30/17 yielding approximately 2500 mL ascites fluid, no SBP She reports she is clinically feeling better Her CBC looks diluted this morning, with decrease in all the cell lines, we will repeat a.m, and continue to monitor Surgery eval noted and appreciated - Constitutional Vitals: Temp Pulse Resp BP Pulse Ox 98.1 F 88 16 115/68 99 12/31/17 11:21 12/31/17 11:21 12/31/17 11:21 12/31/17 11:21 12/31/17 11:21 General appearance: Present: A&O X 3, no acute distress, obese - Head Head exam: Present: atraumatic - Eye Eye exam: Present: scleral icterus, conjuntiva pink - ENT ENT exam: Present: mucous membranes moist - Neck Neck exam general surgery: Present: normal inspection - Respiratory Respiratory exam: Present: CTAB - Cardiovascular Cardiovascular exam: Present: RRR, +S1, +S2 - GI/Abdominal GI/Abdominal exam: Present: normal bowel sounds, soft, no peritoneal signs. Absent: tenderness - Extremities Exam Extremities exam: Present: pedal edema (3+ bilateral piting pedal edema) - Neurological Exam Neurological exam: Present: alert, CN II-XII intact, oriented X3, no focal deficits. Absent: pronater drift, facial droop, speech deficit - Skin Skin exam: Present: dry, intact Internal Medicine: Result - Labs CBC & Chem 7: 12/31/17 04:15 12/31/17 04:15 Labs: Short CBC 12/31/17 Range/Units 04:15 WBC 11.5 H (4.3-11.1) K/mcL Hgb 9.8 L D (11.5-15.4) g/dL Hct 30.4 L (35.3-44.9) % Plt Count 139 L (140-400) K/mcL Neutrophils # 4.4 (1.6-8.9) K/mcL BMP 12/31/17 04:15 Sodium 135 L Potassium 4.4 Chloride 107 Carbon Dioxide 24 BUN 28 H Creatinine 1.07 Glucose 68 L Calcium 7.8 L Liver Function 12/31/17 Range/Units 04:15 Total Bilirubin 3.0 H (0.3-1.0) mg/dL Direct Bilirubin 1.3 H (0.0-0.2) mg/dL AST 119 H (13-39) Units/L ALT 81 H (7-52) Units/L Alkaline Phosphatase 390 H (34-104) Units/L Albumin 2.0 L (3.5-5.7) g/dL - ABG Interpretation ABG results: PT/INR, D-dimer PT 11.5 Seconds (9.4-12.1) 12/30/17 08:51 Consult Discharge Plan - Plan Referrals: Tiago Scott MD [Primary Care Provider] -
[2017-12-31] MEDS ORDERED: *HR* Dextrose 50 % in Water (Syg) 50 ML SYRINGE IVP PRN (15:03)
[2017-12-31] MEDS ORDERED: Dextrose Gel 15 GM/37.5 ML TUBE PO PRN ×2 (15:03)
[2017-12-31] MEDS ORDERED: D5% in Water 1,000 ML IVC PRN (15:03)
--- NOTE | 2017-12-31 15:18 | General Surgery Progress Note ---
Date of Encounter: 12/31/17 Time of Encounter: 14:50 Subjective Patient reports: feels better Narrative: General Surgery - the patient is feeling better Afebrile, currently 98.1, pulse 88, respirations 16, blood pressure 115/68 Abdominal "bloating" diminished; no tenderness, active bowel sounds Laboratories: White count is improved to 11.5, hemoglobin 9.8 with hematocrit 30.4; platelet count 139,000. Total bilirubin is diminished at 3.0, AST has improved to 119, ALT 181, alkaline phosphatase 390 - likely response to paracentesis Urine output approximately 1000 mL since initiating furosemide/spironolactone therapy 3+ pitting dependent edema persists in both lower extremities. Impression: improved status following paracentesis. Recommendations - continue diuresis; continue to monitor renal and hepatic status. Objective Vital Signs - Last 8 Hours Temp Pulse Resp BP Pulse Ox 12/31/17 11:21 98.1 F 88 16 115/68 99 Intake and Output 12/30/17 12/31/17 12/31/17 23:59 07:59 15:59 Intake Total 0 / 0 0 / 0 720 / 720 Output Total 400 / 400 300 / 300 300 / 300 Balance -400 / -400 -300 / -300 420 / 420 Intake: Oral 0 / 0 0 / 0 720 / 720 Output: Urine 400 / 400 300 / 300 300 / 300 Other: Meal Lunch Percent of Meal Consumed 100% Blood Glucose* 125 85 140 - Labs 12/31/17 04:15 12/31/17 04:15 Diabetes panel 12/31/17 12/31/17 Range/Units 04:15 04:15 Sodium 135 L (136-145) mEq/L Potassium 4.4 (3.5-5.1) mEq/L Chloride 107 (98-107) mEq/L Carbon Dioxide 24 (23-29) mEq/L BUN 28 H (8-23) mg/dL Creatinine 1.07 (0.60-1.20) mg/dL Glucose 68 L (70-105) mg/dL Calcium 7.8 L (8.6-10.3) mg/dL AST 119 H (13-39) Units/L ALT 81 H (7-52) Units/L Alkaline Phosphatase 390 H (34-104) Units/L Albumin 2.0 L (3.5-5.7) g/dL Calcium panel 12/31/17 12/31/17 Range/Units 04:15 04:15 Calcium 7.8 L (8.6-10.3) mg/dL Albumin 2.0 L (3.5-5.7) g/dL Pituitary panel 12/31/17 Range/Units 04:15 Sodium 135 L (136-145) mEq/L Potassium 4.4 (3.5-5.1) mEq/L Chloride 107 (98-107) mEq/L Carbon Dioxide 24 (23-29) mEq/L BUN 28 H (8-23) mg/dL Creatinine 1.07 (0.60-1.20) mg/dL Glucose 68 L (70-105) mg/dL Calcium 7.8 L (8.6-10.3) mg/dL Adrenal panel 12/31/17 12/31/17 Range/Units 04:15 04:15 Sodium 135 L (136-145) mEq/L Potassium 4.4 (3.5-5.1) mEq/L Chloride 107 (98-107) mEq/L Carbon Dioxide 24 (23-29) mEq/L BUN 28 H (8-23) mg/dL Creatinine 1.07 (0.60-1.20) mg/dL Glucose 68 L (70-105) mg/dL Calcium 7.8 L (8.6-10.3) mg/dL Total Bilirubin 3.0 H (0.3-1.0) mg/dL AST 119 H (13-39) Units/L ALT 81 H (7-52) Units/L Alkaline Phosphatase 390 H (34-104) Units/L Albumin 2.0 L (3.5-5.7) g/dL Consult Discharge Plan - Plan Referrals: Tiago Scott MD [Primary Care Provider] -
--- NOTE | 2018-01-01 08:19 | Gastroenterology Progress Note ---
<Austin Brooke - Last Filed: 01/01/18 10:26> Date of Encounter: 01/01/18 Time of Encounter: 08:17 - Assessment and plan (1) Ascites Status: Acute Assessment and plan: Patient with abdominal distention and lower extremity swelling despite home diuretic use. During recent 2 week hospitalization due to acute cholecystitis, patient underwent laparoscopic cholecystectomy on 12/17/17 and had a liver biopsy. Pathology results revealed chronic hepatitis pattern of injury with moderate piecemeal necrosis and moderate lobular inflammation (hepatocellular damage), and septal fibrosis with portal-portal fibrous septa with architectural distortion (severe fibrosis). Siderosis Grade 3 of 4. Negative for malignancy. Post operative RUQ SHIRA drain was pulled during follow up appointment with surgeon on 12/27/17. CT abdomen/pelvis without contrast was done which showed cirrhosis with moderate amount of ascites. Patient underwent paracentesis 12/30/17 yielding approximately 2500 mL ascites fluid LFTs are slowly improving Continue Aldactone/ Lasix diureis Differential includes subacute or chronic Budd-Chiari syndrome. Consider RUQ Doppler ultrasonography to exclude concurrent portal or splenic vein thrombosis. Patient refused RUQ ultrasound this AM and would like to follow up with master technician in [place]. Qualifiers: Ascites type: other type Qualified Code(s): R18.8 - Other ascites - Time Spent With Patient Total time spent is greater than 50% in coordination of care (as documented) at patient's floor/unit and/or counseling patient: - Subjective Interval history: Patient seen and examined. Patient reports feeling improved and denies and new c /o at this time. Patient refused RUQ ultrasound this AM and would like to follow up with master technician in [place]. - Constitutional Vitals: Temp Pulse Resp BP Pulse Ox 98.1 F 84 18 122/74 98 01/01/18 07:28 01/01/18 07:28 01/01/18 07:28 01/01/18 07:28 01/01/18 07:28 General appearance: Present: cooperative, A&O X 3, no acute distress, answers questions appropriately - Head Head exam: Present: atraumatic, normocephalic - Eye Eye exam: Present: normal appearance, sclera anicteric - ENT ENT exam: Present: mucous membranes moist, normal oropharynx - Neck Neck exam general surgery: Present: normal inspection, trachea midline - Respiratory Respiratory exam: Present: CTAB - Cardiovascular Cardiovascular exam: Present: RRR, +S1, +S2 - GI/Abdominal GI/Abdominal exam: Present: distended, normal bowel sounds, soft, no peritoneal signs - Rectal Rectal exam: Present: deferred - Extremities Exam Extremities exam: Present: pedal edema, warm - Neurological Exam Neurological exam: Present: oriented X3, no focal deficits - Psychiatric Psychiatric exam: Present: normal affect, normal mood - Skin Skin exam: Present: dry, intact, normal color, warm Results - Labs CBC & Chem 7: 01/01/18 09:00 01/01/18 09:00 Labs: Last Result Calcium 7.8 mg/dL (8.6-10.3) L 12/31/17 04:15 Troponin I < 0.03 ng/mL (< 0.04) 12/30/17 09:01 Peritoneal Tot Protein < 3.0 g/dL (No Ref Range) 12/30/17 15:38 Peritoneal Albumin < 1.5 g/dL (No Ref Range) 12/30/17 15:38 Entire Visit Hgb 9.8 g/dL (11.5-15.4) L D 12/31/17 04:15 Hct 30.4 % (35.3-44.9) L 12/31/17 04:15 PT 11.5 Seconds (9.4-12.1) 12/30/17 08:51 Total Bilirubin 3.0 mg/dL (0.3-1.0) H 12/31/17 04:15 AST 119 Units/L (13-39) H 12/31/17 04:15 ALT 81 Units/L (7-52) H 12/31/17 04:15 Lipase 42 Units/L (11-82) 12/30/17 09:01 - ABG ABG results: PT/INR, D-dimer PT 11.5 Seconds (9.4-12.1) 12/30/17 08:51 Consult Discharge Plan - Plan Instructions: Diabetes Mellitus Type 2 in Adults (DC), Sepsis (DC), Chronic Hypertension (DC), Anemia (GEN) Referrals: Tiago Scott MD [Primary Care Provider] - 01/07/18 2:15 pm Prescriptions: Furosemide [Lasix] 40 mg PO DAILY #30 tablet Spironolactone [Aldactone] 100 mg PO DAILY #60 tablet <Tj Koehler - Last Filed: 01/20/18 07:31> Date of Encounter: 01/01/18 - Time Spent With Patient Total time spent is greater than 50% in coordination of care (as documented) at patient's floor/unit and/or counseling patient: - Constitutional Vitals: Temp Pulse Resp BP Pulse Ox 98.1 F 83 16 117/70 93 01/02/18 10:29 01/02/18 10:29 01/02/18 10:29 01/02/18 10:29 01/02/18 10:29 Results - Labs CBC & Chem 7: 01/02/18 04:45 01/02/18 04:45 Labs: Last Result Calcium 7.8 mg/dL (8.6-10.3) L 01/02/18 04:45 Troponin I < 0.03 ng/mL (< 0.04) 12/30/17 09:01 Peritoneal Tot Protein < 3.0 g/dL (No Ref Range) 12/30/17 15:38 Peritoneal Albumin < 1.5 g/dL (No Ref Range) 12/30/17 15:38 Urine Opiates Screen Negative ng/mL (Ylxuvp=440) 01/01/18 11:08 Entire Visit Hgb 10.2 g/dL (11.5-15.4) L 01/02/18 04:45 Hct 31.9 % (35.3-44.9) L 01/02/18 04:45 PT 11.5 Seconds (9.4-12.1) 12/30/17 08:51 Total Bilirubin 2.5 mg/dL (0.3-1.0) H 01/02/18 04:45 AST 111 Units/L (13-39) H 01/02/18 04:45 ALT 76 Units/L (7-52) H 01/02/18 04:45 Lipase 42 Units/L (11-82) 12/30/17 09:01 - ABG ABG results: PT/INR, D-dimer PT 11.5 Seconds (9.4-12.1) 12/30/17 08:51 - Attending Attestation Ms. Schrader has cirrhosis with portal hypertension and ascites and requests to go to [place] for further care in keeping with a request patient be transferred will be sent to call will be transferred to [place] I examined this patient and my medical decision-making was reviewed with the Resident Physician. I agree with the documented findings, disposition and treatment plan as described except to the extent set forth below.
[2018-01-01] MEDS: Aspirin Enteric Coated 81 MG Tablet PO SCH (08:47)
[2018-01-01] MEDS: Furosemide 40 MG TABLET PO SCH (08:47)
[2018-01-01] MEDS: *HR* Heparin 5,000 UNIT/ML VIAL SQ SCH ×3 (08:48→21:09)
[2018-01-01] MEDS: Insulin NPH/REG 70/30 100 UNIT/ML (x5UNIT) SQ SCH ×2 (08:50→17:14)
[2018-01-01 09:24] LABS: Basophils # 0.1 K/mcL (0.0-0.2); Basophils % 0.4 %; Eosinophils # 0.4 K/mcL (0.0-0.6); Eosinophils % 3.6 %; Hemoglobin 11.1 g/dL (11.5-15.4); Immature Granulocytes % 0.5 % (0-4); Lymphocytes # 5.6 K/mcL (0.6-4.6); Lymphocytes % 45.8 %; Mean Corpuscular HGB Conc 31.7 g/dL (31.6-35.5); Mean Corpuscular Volume 107.4 fL (83.0-100.0); Mean Platelet Volume 10.2 fL (9.4-12.4); Monocytes # 1.2 K/mcL (0.0-1.3); Neutrophils # 4.9 K/mcL (1.6-8.9); Nucleated Red Blood Cells 0.2 /100 WBC (0); Platelet Count 167 K/mcL (140-400); Red Blood Count 3.26 M/mcL (3.82-4.97); Red Cell Distribution Width 17.9 % (11.5-14.5); Segmented Neutrophils % 39.7 %
[2018-01-01 09:43] LABS: Alanine Aminotransferase 84 Units/L (7-52); Albumin 2.3 g/dL (3.5-5.7); Albumin/Globulin Ratio 0.7 (1.1-2.2); Alkaline Phosphatase 427 Units/L (34-104); Aspartate Amino Transferase 118 Units/L (13-39); BUN/Creatinine Ratio 26 (6-26); Bilirubin,Total 3.1 mg/dL (0.3-1.0); Blood Urea Nitrogen 26 mg/dL (8-23); Calcium 8.2 mg/dL (8.6-10.3); Carbon Dioxide 24 mEq/L (23-29); Chloride 106 mEq/L (98-107); Globulin 3.4 g/dL (2.4-3.5); Glucose 86 mg/dL (70-105); Osmolality,Calculated 282 (280-300); Potassium 4.2 mEq/L (3.5-5.1); Sodium 134 mEq/L (136-145); Total Protein 5.7 g/dL (6.4-8.9); eGFR For African Americans > 60 (> 60); eGFR For Non-African Americans 55 (> 60)
--- NOTE | 2018-01-01 12:29 | Internal Med Progress Note ---
Date of Encounter: 01/01/18 Time of Encounter: 12:27 - Assessment and plan (1) Elevated LFTs Current Visit: Yes Status: Acute Assessment and plan: Transaminitis in a patient with known chronic hepatitis,(etiology of hepatitis is unknown, no viral panel) Possibly due to acute insult following the cholecystectomy. However, her transaminitis is improving. Continue to monitor. (2) Diabetes mellitus Current Visit: Yes Status: Chronic Assessment and plan: Monitor fingersticks before meals at bedtime. Decrease a.m insulin due to hypoglycemia Diabetic diet. Qualifiers: Diabetes mellitus type: type 2 Diabetes mellitus halfway insulin use: with halfway use Diabetes mellitus complication status: without complication Qualified Code(s): E11.9 - Type 2 diabetes mellitus without complications; Z79.4 - FDC (current) use of insulin; Z79.4 - FDC ( current) use of insulin; Z79.4 - long term (current) use of insulin; Z79.4 - FDC (current) use of insulin (3) DVT prophylaxis Current Visit: Yes Status: Acute Assessment and plan: Subcutaneous heparin. (4) Conjugated hyperbilirubinemia Current Visit: Yes Status: Acute Assessment and plan: Improving, Continue to monitor. (5) Chronic hepatitis Current Visit: Yes Status: Chronic Assessment and plan: Chronic hepatitis with moderate piecemeal necrosis and moderate lobular inflammation (hepatocellular damage) along with septal fibrosis and portal portal fibrous septa and architectural distortion consistent with severe fibrosis-per pathology, patient with no known etiology Patient needs to be followed by a hide splitter. At this time ,I believe this will be on out-patient basis GI is following RU USS when patient agrees (6) Ascites Current Visit: Yes Status: Acute Assessment and plan: Due to decompensated liver cirrhosis. Status post paracentesis, peritoneal fluid was negative for spontaneous bacterial peritonitis. Continue to monitor. Qualifiers: Ascites type: other type Qualified Code(s): R18.8 - Other ascites - Time Spent With Patient Total time spent is greater than 50% in coordination of care (as documented) at patient's floor/unit and/or counseling patient: - Subjective Interval history: 72 F admitted and being managed for Decompensated liver cirrhosis with acute on chronic hepatitis picture, as well as hyperbilirubunemia, ascites. She also had pedal edema on arrival and has been started on diuretics, she is s/ p paracentensis 4/2/18 yielding approximately 2500 mL ascites fluid, no SBP She reports she is clinically feeling better, pedal edema persists Gastroenterology and surgery are following, but patient refused RU Quadrant ultrasound to rule out Budd-Chiari syndrome Her LFTs do not show improvement from yesterday She has no new complains Per surgeon, patient may need to be transferred for hepatology review - Constitutional Vitals: Temp Pulse Resp BP Pulse Ox 98.2 F 91 18 153/78 98 01/01/18 10:38 01/01/18 10:38 01/01/18 10:38 01/01/18 10:38 01/01/18 07:28 General appearance: Present: A&O X 3, no acute distress, obese - Head Head exam: Present: atraumatic, normocephalic - Eye Eye exam: Present: scleral icterus, conjuntiva pink - Neck Neck exam general surgery: Present: supple, trachea midline. Absent: lymphadenopathy - Respiratory Respiratory exam: Present: CTAB. Absent: accessory muscle use, rales, rhonchi, wheezes - Cardiovascular Cardiovascular exam: Present: RRR, +S1, +S2. Absent: diastolic murmur, gallop, rubs, systolic murmur - GI/Abdominal GI/Abdominal exam: Present: normal bowel sounds, soft, no peritoneal signs. Absent: distended, tenderness - Extremities Exam Extremities exam: Present: pedal edema - Neurological Exam Neurological exam: Present: alert, CN II-XII intact, oriented X3, no focal deficits. Absent: pronater drift, facial droop, speech deficit - Skin Skin exam: Present: dry, intact Internal Medicine: Result - Labs CBC & Chem 7: 01/01/18 09:00 01/01/18 09:00 Labs: Short CBC 01/01/18 Range/Units 09:00 WBC 12.3 H (4.3-11.1) K/mcL Hgb 11.1 L (11.5-15.4) g/dL Hct 35.0 L (35.3-44.9) % Plt Count 167 (140-400) K/mcL Neutrophils # 4.9 (1.6-8.9) K/mcL BMP 01/01/18 09:00 Sodium 134 L Potassium 4.2 Chloride 106 Carbon Dioxide 24 BUN 26 H Creatinine 0.99 Glucose 86 Calcium 8.2 L Liver Function 01/01/18 Range/Units 09:00 Total Bilirubin 3.1 H (0.3-1.0) mg/dL AST 118 H (13-39) Units/L ALT 84 H (7-52) Units/L Alkaline Phosphatase 427 H (34-104) Units/L Albumin 2.3 L (3.5-5.7) g/dL - ABG Interpretation ABG results: PT/INR, D-dimer PT 11.5 Seconds (9.4-12.1) 12/30/17 08:51 Consult Discharge Plan - Plan Referrals: Tiago Scott MD [Primary Care Provider] -
[2018-01-01 13:25] LABS: Amphetamine Screen,Urine Negative ng/mL (Cutoff=1000); Barbiturate Screen,Urine Negative ng/mL (Cutoff=200); Benzodiazepines Screen,Urine Negative ng/mL (Cutoff=200); Cannabinoid Screen,Urine Negative ng/mL (Cutoff = 50); Cocaine Screen,Urine Negative ng/mL (Cutoff= 300); Opiate Screen,Urine Negative ng/mL (Cutoff=300); Phencyclidine Screen,Urine Negative ng/mL (Cutoff=25)
--- NOTE | 2018-01-01 14:08 | General Surgery Progress Note ---
Date of Encounter: 01/01/18 Time of Encounter: 13:30 Subjective Patient reports: no new complaints Narrative: General Surgery - patient appears stable, no new complaints but concerned that her abdomen is more distended. patient remains Afeb, currently, 98.2; pulse 72-91; RR 18, blood pressure 153 /78 (slightly elevated from previous readings) Lungs: Clear, no obvious abdominal pain on deep inspiration Abdomen protuberant but soft, nontender. Active bowel sounds. Extremities: 2+ pitting edema now distal to the knees Port sites related to previous laparoscopic cholecystectomy remained intact and are healing acceptably well Urine output: 1050 mL fourth calendar day 12/31/17; 575 mL so far today Laboratories: White count slightly increased to 12.3 (previously 11.5) hemoglobin 11.1 with hematocrit 35.0 - increased with effective diuresis Platelet count 167,000. Sodium 134, potassium 4.2, BUN 26, creatinine 0.99 ( both stable despite aggressive diuresis) Total bilirubin 3.1, AST 118, ALT 84, alkaline phosphatase 427. Impression: Overall status appears stable; possible reaccumulation ascites. I have discussed this with the patient in detail and have recommended ultrasound of the abdomen. If there is evidence of increasing intraperitoneal fluid/ ascites. Repeat paracentesis can be considered. The patient is willing to undergo the ultrasound of the abdomen. Since she has eaten today we will arrange for that to be completed tomorrow. The patient will be NPO after 12MN except for medications. Objective Vital Signs - Last 8 Hours Temp Pulse Resp BP Pulse Ox 01/01/18 10:38 98.2 F 91 18 153/78 01/01/18 07:28 98.1 F 84 18 122/74 98 Intake and Output 12/31/17 01/01/18 01/01/18 23:59 07:59 15:59 Intake Total 240 / 240 0 / 0 240 / 240 Output Total 450 / 450 0 / 0 575 / 575 Balance -210 / -210 0 / 0 -335 / -335 Intake: Oral 240 / 240 0 / 0 240 / 240 Output: Urine 450 / 450 0 / 0 Straight Cath 575 / 575 Other: Meal Dinner Lunch Percent of Meal Consumed 100% 100% Weight 97.9 kg Blood Glucose* 159 80 136 Patient Weight 01/01/18 23:59 Weight 97.9 kg - Labs 01/01/18 09:00 01/01/18 09:00 Diabetes panel 01/01/18 Range/Units 09:00 Sodium 134 L (136-145) mEq/L Potassium 4.2 (3.5-5.1) mEq/L Chloride 106 (98-107) mEq/L Carbon Dioxide 24 (23-29) mEq/L BUN 26 H (8-23) mg/dL Creatinine 0.99 (0.60-1.20) mg/dL Glucose 86 (70-105) mg/dL Calcium 8.2 L (8.6-10.3) mg/dL AST 118 H (13-39) Units/L ALT 84 H (7-52) Units/L Alkaline Phosphatase 427 H (34-104) Units/L Albumin 2.3 L (3.5-5.7) g/dL Calcium panel 01/01/18 Range/Units 09:00 Calcium 8.2 L (8.6-10.3) mg/dL Albumin 2.3 L (3.5-5.7) g/dL Pituitary panel 01/01/18 Range/Units 09:00 Sodium 134 L (136-145) mEq/L Potassium 4.2 (3.5-5.1) mEq/L Chloride 106 (98-107) mEq/L Carbon Dioxide 24 (23-29) mEq/L BUN 26 H (8-23) mg/dL Creatinine 0.99 (0.60-1.20) mg/dL Glucose 86 (70-105) mg/dL Calcium 8.2 L (8.6-10.3) mg/dL Adrenal panel 01/01/18 Range/Units 09:00 Sodium 134 L (136-145) mEq/L Potassium 4.2 (3.5-5.1) mEq/L Chloride 106 (98-107) mEq/L Carbon Dioxide 24 (23-29) mEq/L BUN 26 H (8-23) mg/dL Creatinine 0.99 (0.60-1.20) mg/dL Glucose 86 (70-105) mg/dL Calcium 8.2 L (8.6-10.3) mg/dL Total Bilirubin 3.1 H (0.3-1.0) mg/dL AST 118 H (13-39) Units/L ALT 84 H (7-52) Units/L Alkaline Phosphatase 427 H (34-104) Units/L Albumin 2.3 L (3.5-5.7) g/dL Consult Discharge Plan - Plan Referrals: Tiago Scott MD [Primary Care Provider] -
[2018-01-02 05:34] LABS: Basophils # 0.1 K/mcL (0.0-0.2); Basophils % 0.4 %; Eosinophils # 0.5 K/mcL (0.0-0.6); Eosinophils % 4.1 %; Hematocrit 31.9 % (35.3-44.9); Hemoglobin 10.2 g/dL (11.5-15.4); Immature Granulocytes % 0.6 % (0-4); Lymphocytes # 5.6 K/mcL (0.6-4.6); Lymphocytes % 47.2 %; Mean Corpuscular Hemoglobin 34.2 pg (28.0-33.3); Mean Platelet Volume 10.8 fL (9.4-12.4); Monocytes # 1.2 K/mcL (0.0-1.3); Monocytes % 10.4 %; Neutrophils # 4.4 K/mcL (1.6-8.9); Platelet Count 142 K/mcL (140-400); Red Blood Count 2.98 M/mcL (3.82-4.97); Red Cell Distribution Width 17.7 % (11.5-14.5); Segmented Neutrophils % 37.3 %
[2018-01-02 05:51] LABS: Alanine Aminotransferase 76 Units/L (7-52); Albumin 2.2 g/dL (3.5-5.7); Albumin/Globulin Ratio 0.7 (1.1-2.2); Alkaline Phosphatase 398 Units/L (34-104); Aspartate Amino Transferase 111 Units/L (13-39); BUN/Creatinine Ratio 27 (6-26); Bilirubin,Total 2.5 mg/dL (0.3-1.0); Blood Urea Nitrogen 28 mg/dL (8-23); Calcium 7.8 mg/dL (8.6-10.3); Carbon Dioxide 23 mEq/L (23-29); Chloride 107 mEq/L (98-107); Glucose 137 mg/dL (70-105); Osmolality,Calculated 288 (280-300); Potassium 4.6 mEq/L (3.5-5.1); Sodium 135 mEq/L (136-145); Total Protein 5.2 g/dL (6.4-8.9); eGFR For African Americans > 60 (> 60); eGFR For Non-African Americans 53 (> 60)
[2018-01-02] MEDS ORDERED: Insulin NPH/REG 70/30 100 UNIT/ML (x5UNIT) SQ SCH (09:00)
[2018-01-02] MEDS: *HR* Heparin 5,000 UNIT/ML VIAL SQ SCH (09:34)
[2018-01-02] MEDS: Aspirin Enteric Coated 81 MG Tablet PO SCH (09:37)
[2018-01-02] MEDS: Furosemide 40 MG TABLET PO SCH (09:37)
[2018-01-02 10:31] VITALS: BP 117/70
--- NOTE | 2018-01-02 13:15 | Discharge Summary ---
- NOTES TO OUTPATIENT PROVIDER Notes to Outpatient Provider: Admitted for decompensated cirrhosis, started on lasix and aldactone , needs hepatology review, will be referred by Dr. Nieto to a grocery store courtesy clerk at [place] Orders not resulted at time of discharge: Pending orders 12/30/17 15:00 Culture,Body Fluid [RM] Routine 01/02/18 08:00 US abd pelvis doppler [US] Routine Date of Encounter: 01/02/18 Time of Encounter: 13:13 - Discharge Diagnosis (1) Elevated LFTs Priority: Primary Status: Acute Comments: Transaminitis in a patient with known chronic hepatitis,(etiology of hepatitis is unknown, no viral panel) Possibly due to acute insult following the cholecystectomy. However, her transaminitis is improving. Stable for discharge, follow up with grocery store courtesy clerk (2) Diabetes mellitus Priority: Secondary Status: Chronic Comments: continue home dose of insulin Qualifiers: Diabetes mellitus type: type 2 Diabetes mellitus termite helper insulin use: with longterm use Diabetes mellitus complication status: without complication Qualified Code(s): E11.9 - Type 2 diabetes mellitus without complications; Z79.4 - long-term (current) use of insulin; Z79.4 - long-term ( current) use of insulin; Z79.4 - intermediate designer (current) use of insulin; Z79.4 - intermediate designer (current) use of insulin (3) DVT prophylaxis Priority: Primary Status: Acute (4) Conjugated hyperbilirubinemia Priority: Primary Status: Acute (5) Chronic hepatitis Priority: Secondary Status: Chronic Comments: Chronic hepatitis with moderate piecemeal necrosis and moderate lobular inflammation (hepatocellular damage) along with septal fibrosis and portal portal fibrous septa and architectural distortion consistent with severe fibrosis-per pathology, patient with no known etiology Patient needs to be followed by a grocery store courtesy clerk out-patient RUQ USS ruled out Budd-Chiari/Thrombosis (6) Ascites Priority: Primary Status: Acute Comments: Status post paracentesis, peritoneal fluid was negative for spontaneous bacterial peritonitis. Continue lasix and aldactone, educated on need for compliance Qualifiers: Ascites type: other type Qualified Code(s): R18.8 - Other ascites Hospital course: Ms. Schrader is a 72 year old female Seen and examined at the bedside, dressed up and ready to go home She is clinically stable See each diagnosis for details Discharge discussed with: patient, nurse, case management - Time Spent with Patient Total time spent providing and/or coordinating discharge services: Less than 30 minutes - Discharge Medications Prescriptions: Furosemide [Lasix] 40 mg PO DAILY #30 tablet Spironolactone [Aldactone] 100 mg PO DAILY #60 tablet Home Medications: Aspirin Enteric Coated [Aspirin EC] 81 mg PO DAILY 12/10/17 [History] Atorvastatin [Lipitor] 10 mg PO HS 12/10/17 [History] Calcium Carbonate [Calcium] 600 mg PO DAILY 12/10/17 [History] Insulin NPH Hum/Reg Insulin Hm [Novolin 70-30 100 Unit/ml Vial] 26 unit SQ QPM 12/10/17 [History] Insulin NPH Hum/Reg Insulin Hm [Novolin 70-30 100 Unit/ml Vial] 46 unit SQ QAM 12/10/17 [History] Lisinopril [Zestril] 10 mg PO DAILY 12/10/17 [History] Vit A/C/E AC/Znox/Cupric Oxide [Eye Vitamin-Minerals Tablet] 1 each PO DAILY [History] glipiZIDE [Glucotrol] 5 mg PO BID 12/10/17 [History] Furosemide [Lasix] 40 mg PO DAILY #30 tablet 01/02/18 [Rx] Spironolactone [Aldactone] 100 mg PO DAILY #60 tablet 01/02/18 [Rx] Allergies/Adverse Reactions: 3 Allergy/AdvReac Type Severity Reaction Status Date / Time No Known Allergies Allergy Verified 12/30/17 08:39 Date of admission: 12/30/17 10:46 Primary care physician: Tiago Scott MD Consults: 12/30/17 12:55 Consult to Gastroenterology [CONS] Routine Consulting Provider: Gastroenterology Judy Reason for Consult: Liver cirrhosis with ascites Time Notified: 12:00 Call Completed: Yes 12/30/17 12:56 Consult to Interventional Radiology [CONS] Routine Consulting Provider: Radiology Interventional Cols Reason for Consult: Ascites Time Notified: 12:00 Call Completed: Yes 12/30/17 13:23 Consult to Surgery [CONS] Routine Consulting Provider: Surgery Faith Surg - [facility] Reason for Consult: Liver cirrhosis with ascites status post cholecystectomy Time Notified: 13:00 Call Completed: Yes Discharging clinician: Patrick Lees Anticipated date of discharge: 01/02/18 - Constitutional Vitals: Temp Pulse Resp BP Pulse Ox 98.1 F 83 16 117/70 93 01/02/18 10:29 01/02/18 10:29 01/02/18 10:29 01/02/18 10:29 01/02/18 10:29 General appearance: Present: A&O X 3, no acute distress, obese - Head Head exam: Present: atraumatic, normocephalic - Eye Eye exam: Present: PERRL, scleral icterus, conjuntiva pink Pupils: Present: PERRL - Neck Neck exam general surgery: Present: supple, trachea midline. Absent: lymphadenopathy - Respiratory Respiratory exam: Present: CTAB. Absent: accessory muscle use, rales, rhonchi, wheezes - Cardiovascular Cardiovascular exam: Present: RRR, +S1, +S2. Absent: diastolic murmur, gallop, rubs, systolic murmur - GI/Abdominal GI/Abdominal exam: Present: normal bowel sounds, soft, no peritoneal signs. Absent: distended, tenderness - Extremities Exam Extremities exam: Present: pedal edema - Neurological Exam Neurological exam: Present: alert, CN II-XII intact, oriented X3, no focal deficits. Absent: pronater drift, facial droop, speech deficit - Skin Skin exam: Present: dry, intact - Patient Status Disposition: Home, Self-Care Condition: Good Functional capacity at discharge: independent ambulation Overall status at discharge: patient is back to baseline - Discharge Instructions Instructions: Diabetes Mellitus Type 2 in Adults (DC), Sepsis (DC), Chronic Hypertension (DC), Anemia (GEN) Follow Up With: Tiago Scott MD [Primary Care Provider] - 01/07/18 2:15 pm - Diet and Activity Activity: resume usual activities as tolerated Diet: low salt diet
== END 2018-01-02 14:14 | disposition home or self-care (01) ==
LOC: 3ANU 08:35 → EMEROO 08:35 → SUATTDRO 10:46 → 3ANU 11:48
PROVIDERS: ADMIT Hospitalist; ATTEND Internal Medicine